=== PATIENT | female | born 1950 | race Caucasian/White ===

== ENCOUNTER 2020-11-18 08:16 | Inpatient (IN) | payer MEDICARE ==
[2020-11-18] MEDS ORDERED: MORPHINE SULFATE 4 MG/ML SYRINGE IV STA (08:31)
[2020-11-18] MEDS ORDERED: ONDANSETRON 4 MG/2 ML VIAL IVP STA (08:31)
[2020-11-18] MEDS ORDERED: PANTOPRAZOLE 40 MG/10 ML VIAL IVP STA (08:31)
--- NOTE | 2020-11-18 09:21 | ED ---
General Adult HPI - General Chief complaint: Abdominal Pain Stated complaint: Abd Pain Time Seen by Provider: 11/18/20 08:17 Source: patient, RN notes reviewed, old records reviewed Mode of arrival: ambulatory Limitations: no limitations - History of Present Illness Initial comments: Patient is a pleasant 70-year-old female presenting to the emergency Department with abdominal discomfort. Symptoms have been going on for weeks. Patient was recently at [facility] and had paracentesis done. Patient received results yesterday concerning for adenocarcinoma. Patient is having some continued discomfort that is progressively worsening. Patient did have computed tomography scan done. Charts were reviewed. Patient also had recent problems with A. fib and had pacemaker placed. - Related Data Home Medications Medication Instructions Recorded Confirmed traZODone HCL [TraZODone HCl] 50 - 150 mg PO TID PRN 10/11/20 11/18/20 Atorvastatin [Lipitor] 40 mg PO HS 11/18/20 11/18/20 Escitalopram [Lexapro] 10 mg PO DAILY PRN 11/18/20 11/18/20 Omeprazole 40 mg PO DAILY 11/18/20 11/18/20 Rivaroxaban [Xarelto] 15 mg PO W/SUPPER 11/18/20 11/18/20 Simethicone 80 mg PO Q4H PRN 11/18/20 11/18/20 Sotalol [Betapace] 180 mg PO BID 11/18/20 11/18/20 Sucralfate [Carafate] 1 gm PO Q8H 11/18/20 11/18/20 tiZANidine HCL [Zanaflex] 2 mg PO TID PRN 11/18/20 11/18/20 Allergies Allergy/AdvReac Type Severity Reaction Status Date / Time isosorbide [From Ismo] Allergy Severe Anaphylaxis Verified 11/18/20 09:40 hydralazine Allergy Rash/Hives Verified 11/18/20 09:40 Review of Systems ROS Statement: Those systems with pertinent positive or pertinent negative responses have been documented in the HPI. ROS Other: All systems not noted in ROS Statement are negative. Constitutional: Denies: fever Eyes: Denies: eye pain ENT: Denies: ear pain Respiratory: Reports: as per HPI, dyspnea. Denies: cough Cardiovascular: Denies: chest pain Endocrine: Reports: fatigue Gastrointestinal: Reports: abdominal pain, nausea. Denies: vomiting Genitourinary: Denies: dysuria Musculoskeletal: Denies: back pain Skin: Denies: rash Neurological: Reports: weakness (Generalized weakness limiting ability to ambulate), abnormal gait Past Medical History Past Medical History: Atrial Fibrillation, Cancer, Hyperlipidemia, Hypertension Additional Past Medical History / Comment(s): anenia History of Any Multi-Drug Resistant Organisms: None Reported Past Surgical History: Appendectomy, Hernia Repair, Pacemaker, Tonsillectomy Additional Past Surgical History / Comment(s): Paracentis 11/28, gastic bypass, loop recorder placement Past Psychological History: Depression Smoking Status: Former smoker Past Alcohol Use History: Occasional General Exam Limitations: no limitations General appearance: alert, in no apparent distress Head exam: Present: atraumatic Eye exam: Present: normal appearance ENT exam: Present: mucous membranes dry Neck exam: Present: normal inspection Respiratory exam: Present: normal lung sounds bilaterally Cardiovascular Exam: Present: regular rate, normal rhythm GI/Abdominal exam: Present: soft, distended (Mild distention), tenderness (Mild to moderate lower abdomen), diminished bowel sounds. Absent: guarding, rebound, rigid, pulsatile mass Extremities exam: Present: pedal edema (+1 bilateral) Neurological exam: Present: alert Psychiatric exam: Present: normal affect, normal mood Skin exam: Present: normal color Course Vital Signs 11/18/20 11/18/20 08:20 10:00 Temperature 98.2 F Pulse Rate 68 70 Respiratory 18 18 Rate Blood Pressure 112/60 142/89 O2 Sat by Pulse 98 98 Oximetry EKG Findings - EKG Comments: EKG Findings:: Paced rhythm with rate of 70. SC 164. QRS 82. QT 460. QTC 496. Normal axis. T-wave inversion leads V2 through V5. Normal QRS. Medical Decision Making - Medical Decision Making Patient reevaluated. Patient updated on results and plan. Case was discussed with Dr. Appiah, who will admit covering for Dr. Daniel. Case also discussed wit Dr. rouse, who will consult. - Lab Data Result diagrams: 11/18/20 09:17 11/18/20 09:17 Lab Results 11/18/20 11/18/20 11/18/20 Range/Units 09:17 09:17 09:17 WBC 11.4 H (3.8-10.6) k/uL RBC 4.01 (3.80-5.40) m/uL Hgb 11.1 L (11.4-16.0) gm/dL Hct 35.3 (34.0-46.0) % MCV 88.0 (80.0-100.0) fL MCH 27.7 (25.0-35.0) pg MCHC 31.4 (31.0-37.0) g/dL RDW 20.0 H (11.5-15.5) % Plt Count 434 (150-450) k/uL MPV 8.9 Neutrophils % 86 % Lymphocytes % 6 % Monocytes % 7 % Eosinophils % 0 % Basophils % 0 % Neutrophils # 9.8 H (1.3-7.7) k/uL Lymphocytes # 0.6 L (1.0-4.8) k/uL Monocytes # 0.8 (0-1.0) k/uL Eosinophils # 0.1 (0-0.7) k/uL Basophils # 0.0 (0-0.2) k/uL Hypochromasia Marked Poikilocytosis Slight Anisocytosis Moderate PT 11.0 (9.0-12.0) sec INR 1.0 (<1.2) APTT 23.2 (22.0-30.0) sec Sodium 125 L (137-145) mmol/L Potassium 5.0 (3.5-5.1) mmol/L Chloride 99 (98-107) mmol/L Carbon Dioxide 17 L (22-30) mmol/L Anion Gap 9 mmol/L BUN 12 (7-17) mg/dL Creatinine 1.18 H (0.52-1.04) mg/dL Est GFR (CKD-EPI)AfAm 55 (>60 ml/min/1.73 sqM) Est GFR (CKD-EPI)NonAf 48 (>60 ml/min/1.73 sqM) Glucose 74 (74-99) mg/dL Calcium 8.2 L (8.4-10.2) mg/dL Total Bilirubin 0.4 (0.2-1.3) mg/dL AST 30 (14-36) U/L ALT 6 (4-34) U/L Alkaline Phosphatase 72 (38-126) U/L Total Protein 4.5 L (6.3-8.2) g/dL Albumin 2.3 L (3.5-5.0) g/dL Amylase <30 L (30-110) U/L Lipase 24 (23-300) U/L - Radiology Data Radiology results: image reviewed (Chest x-ray shows hyperinflation. Left effusion with basilar infiltrate. Cannot exclude mild central venous congestion. KUB shows nonspecific abdomen.) Disposition Clinical Impression: Hyponatremia, Ascites, Adenocarcinoma Disposition: ADMITTED IP TO THIS HOSP Is patient prescribed a controlled substance at d/c from ED?: No Referrals: Jami Daniel MD [Primary Care Provider] - 1-2 days Decision Time: 10:37
[2020-11-18 09:54] LABS: ALT 6 U/L (4-34); African American GFR (CKD) 55 (>60 ml/min/1.73 sqM); Albumin 2.3 g/dL (3.5-5.0); Amylase <30 U/L (30-110); Anion Gap 9 mmol/L; Blood Urea Nitrogen 12 mg/dL (7-17); Calcium 8.2 mg/dL (8.4-10.2); Carbon Dioxide 17 mmol/L (22-30); Chloride 99 mmol/L (98-107); Glucose 74 mg/dL (74-99); Lipase 24 U/L (23-300); Non-African American GFR(CKD) 48 (>60 ml/min/1.73 sqM); Sodium 125 mmol/L (137-145); Total Bilirubin 0.4 mg/dL (0.2-1.3); Total Protein 4.5 g/dL (6.3-8.2)
[2020-11-18 09:55] LABS: AST 30 U/L (14-36); Alkaline Phosphatase 72 U/L (38-126)
[2020-11-18 10:04] LABS: Anisocytosis Moderate; Basophils % (A) 0 %; Eosinophils # (A) 0.1 k/uL (0-0.7); Eosinophils % (A) 0 %; HCT 35.3 % (34.0-46.0); HGB 11.1 gm/dL (11.4-16.0); Hypochromasia Marked; Lymphocytes # (A) 0.6 k/uL (1.0-4.8); Lymphocytes % (A) 6 %; MCH 27.7 pg (25.0-35.0); MCHC 31.4 g/dL (31.0-37.0); Mean Platelet Volume 8.9; Monocytes # (A) 0.8 k/uL (0-1.0); Monocytes % (A) 7 %; Neutrophils # (A) 9.8 k/uL (1.3-7.7); Neutrophils % (A) 86 %; Platelet Count 434 k/uL (150-450); Poikilocytosis Slight; RBC 4.01 m/uL (3.80-5.40); WBC 11.4 k/uL (3.8-10.6)
[2020-11-18 10:11] LABS: Partial Thromboplastin Time 23.2 sec (22.0-30.0)
--- NOTE | 2020-11-18 10:32 | XR ---
EXAMINATION TYPE: XR chest 2V DATE OF EXAM: 11/18/2020 COMPARISON: NONE TECHNIQUE: PA and lateral views submitted. HISTORY: Shortness of breath FINDINGS: Heart is enlarged and there is hyperinflation with bilateral consolidation and small effusion. No pne umothorax. Biapical pleural thickening. Cardiac device seen and there is atherosclerotic change of th e aorta. Heart size normal. IMPRESSION: 1. COPD with basilar infiltrate and small effusion greater on the left. Mild central venous congestio n not excluded.
--- NOTE | 2020-11-18 10:33 | XR ---
EXAMINATION TYPE: XR KUB DATE OF EXAM: 11/18/2020 COMPARISON: NONE HISTORY: Pain TECHNIQUE: One view abdominal series FINDINGS: The osseous structures are intact. The bowel gas pattern is nonspecific. Postsurgical changes noted and there is arthropathy of the hips. Cardiac leads are seen and there is basilar infiltrate and smal l effusion greater on the left. Hypertrophic and degenerative change of the spine. Suggestion of poss ible previous hernia repair surgery. Overall bowel gas pattern nonspecific. IMPRESSION: 1. Nonspecific abdomen. 2. Bibasilar infiltrate and small effusion greater on the left.
[2020-11-18] MEDS ORDERED: NALOXONE 0.4 MG/ML 1 ML VIAL IV PRN (10:57)
[2020-11-18] MEDS ORDERED: SODIUM CHLORIDE 0.9% 1,000 ML IV SCH (11:00)
[2020-11-18 11:12] LABS: Amorphous Sediment,Urine Occasional /hpf; Appearance,Urine Turbid (Clear); Bacteria,Urine Occasional /hpf; Bilirubin,Urine 1+ (Negative); Blood,Urine Large (Negative); Color,Urine Yellow; Glucose,Urine (UA) Negative (Negative); Hyaline Casts,Urine 22 /lpf (0-2); Ketones,Urine Trace (Negative); Leukocyte Esterase,Urine Small (Negative); Mucus,Urine Few /hpf; Nitrite,Urine Negative (Negative); PH, Urine 5.5 (5.0-8.0); Protein,Urine 1+ (Negative); RBC,Urine 8 /hpf (0-5); Specific Gravity,Urine 1.025 (1.001-1.035); Squamous Epithelial Cell,Urine 26 /hpf (0-4); WBC,Urine 7 /hpf (0-5)
[2020-11-18] MEDS ORDERED: METOCLOPRAMIDE 5 MG/ML 2 ML VIAL IVP STA (12:08)
[2020-11-18] MEDS: MORPHINE SULFATE 4 MG/ML SYRINGE IV PRN ×2 (12:15→17:37)
[2020-11-18] MEDS ORDERED: SIMETHICONE 80 MG CHEWABLE PO PRN (12:51)
[2020-11-18] MEDS ORDERED: ESCITALOPRAM 10 MG TAB PO PRN (12:51)
--- NOTE | 2020-11-18 14:25 | US ---
EXAMINATION TYPE: US abdomen limited DATE OF EXAM: 11/18/2020 COMPARISON: NONE CLINICAL HISTORY: ascites. All four quadrants scanned. There is small amounts of ascites noted in all four quadrants. IMPRESSION: Small amount of ascites
--- NOTE | 2020-11-18 15:47 | P.CONS ---
History of Present Illness - Reason for Consult Consult date: 11/18/20 Ascites Requesting physician: Timothy Appiah - Chief Complaint Abdominal pain, weakness - History of Present Illness This is a pleasant 70-year-old white female who presented to the emergency department today with complaints of waking up this morning with abdominal pain, weakness, and fluid filling up in her abdomen again. She has a past medical history including atrial fibrillation for which she underwent pacemaker placement in October 2020, hyperlipidemia, hypertension, iron deficiency anemia who follows with Dr. Cr, and a recent diagnosis of adenocarcinoma. brenda cha.She also has a history of Jonathan-en-Y surgery. She states she was at [facility] for treatment of abdominal pain and abdominal distention, she underwent a CT of the abdomen and pelvis that showed small pleural effusion bilaterally with mild bibasilar lung atelectasis. Large amount of ascites. She underwent a paracentesis on 11/14/2020 of 3.8 L of fluid removed, and cytology came back as adenocarcinoma. She denies any previous history of liver disease, history of alcoholism, or family history of liver disease. She is seen Dr. Lama in the past for EGD and colonoscopies. she states her last EGD was approximately 2 years ago unsure of findings, no report available at this time. Colonoscopy was completed through 4 days ago when she was in the hospital, patient states they said it was normal.today's labs include WBC 11.4, hemoglobin 11.1, hematocrit 35.3, platelets 434,000, INR 1.0,sodium 125, potassium 5, BP 112, creatinine 1.18, total bilirubin 0.4, alkaline phosphatase 72, AST 30, ALT 6, amylase 2.3, lipase less than 30. Afebrile, denies any shortness of breath or chest pain, denies any nausea or vomiting. Review of Systems REVIEW OF SYSTEMS: CARDIOPULMONARY: No chest pain or shortness of breath. Gastrointestinal: Abdominal pain and distention. No nausea or vomiting. No hematemesis, coffee-ground emesis. No rectal bleeding, or melena. GENITOURINARY: No dysuria or hematuria. MUSCULOSKELETAL: Reports normal range of motion., Joint pain. SKIN: No rashes. No jaundice. ENDOCRINE: No chills, fevers. No excessive weight gain or loss. No polydipsia or polyuria. PSYCHIATRIC: Unremarkable. NEUROLOGY: No change in mental status. Denies dizziness, headache. ENT: Vision unremarkable. CONSTITUTIONAL: No recent weight loss. No fever, chills, night sweats. Weakness. Past Medical History Past Medical History: Atrial Fibrillation, Cancer, Hyperlipidemia, Hypertension Additional Past Medical History / Comment(s): anenia History of Any Multi-Drug Resistant Organisms: None Reported Past Surgical History: Appendectomy, Hernia Repair, Pacemaker, Tonsillectomy Additional Past Surgical History / Comment(s): Paracentis 11/28, gastic bypass, loop recorder placement Past Psychological History: Depression Smoking Status: Former smoker Past Alcohol Use History: Occasional Medications and Allergies Home Medications Medication Instructions Recorded Confirmed Type traZODone HCL [TraZODone HCl] 50 - 150 mg PO TID PRN 10/11/20 11/18/20 History Atorvastatin [Lipitor] 40 mg PO HS 11/18/20 11/18/20 History Escitalopram [Lexapro] 10 mg PO DAILY PRN 11/18/20 11/18/20 History Omeprazole 40 mg PO DAILY 11/18/20 11/18/20 History Rivaroxaban [Xarelto] 15 mg PO W/SUPPER 11/18/20 11/18/20 History Simethicone 80 mg PO Q4H PRN 11/18/20 11/18/20 History Sotalol [Betapace] 180 mg PO BID 11/18/20 11/18/20 History Sucralfate [Carafate] 1 gm PO Q8H 11/18/20 11/18/20 History tiZANidine HCL [Zanaflex] 2 mg PO TID PRN 11/18/20 11/18/20 History Allergies Allergy/AdvReac Type Severity Reaction Status Date / Time isosorbide [From Ismo] Allergy Severe Anaphylaxis Verified 11/18/20 09:40 hydralazine Allergy Rash/Hives Verified 11/18/20 09:40 Physical Exam Vitals: Vital Signs Temp Pulse Resp BP Pulse Ox 11/18/20 11:14 70 18 105/63 96 11/18/20 10:00 70 18 142/89 98 11/18/20 08:20 98.2 F 68 18 112/60 98 Intake and Output 11/17/20 11/18/20 11/18/20 22:59 06:59 14:59 Other: Weight 90.718 kg General appearance: The patient is alert, oriented, appears in no acute distress. HET: Head is normocephalic and atraumatic. conjunctiva pink. Sclera anicteric. Neck: Supple without lymphadenopathy. Trachea midline. Heart: S1 S2. Regular rate and rhythm. Lungs: Clear to auscultation. Abdomen: Soft, tender, mild distention. normal bowel sounds. No guarding or rigidity. Skin: No rashes. No jaundice. Extremities: Normal skin color and turgor. no pedal edema. Neurological: No focal deficits. Alert and oriented x3. Results CBC & Chem 7: 11/18/20 09:17 11/18/20 09:17 Labs: Abnormal Lab Results - Last 24 Hours (Table) 11/18/20 11/18/20 11/18/20 Range/Units 09:17 09:17 09:17 WBC 11.4 H (3.8-10.6) k/uL Hgb 11.1 L (11.4-16.0) gm/dL RDW 20.0 H (11.5-15.5) % Neutrophils # 9.8 H (1.3-7.7) k/uL Lymphocytes # 0.6 L (1.0-4.8) k/uL Sodium 125 L (137-145) mmol/L Carbon Dioxide 17 L (22-30) mmol/L Creatinine 1.18 H (0.52-1.04) mg/dL Calcium 8.2 L (8.4-10.2) mg/dL Total Protein 4.5 L (6.3-8.2) g/dL Albumin 2.3 L (3.5-5.0) g/dL Amylase <30 L (30-110) U/L Urine Appearance Turbid H (Clear) Urine Protein 1+ H (Negative) Urine Ketones Trace H (Negative) Urine Blood Large H (Negative) Urine Bilirubin 1+ H (Negative) Ur Leukocyte Esterase Small H (Negative) Urine RBC 8 H (0-5) /hpf Urine WBC 7 H (0-5) /hpf Ur Squamous Epith Cells 26 H (0-4) /hpf Amorphous Sediment Occasional H (None) /hpf Urine Bacteria Occasional H (None) /hpf Hyaline Casts 22 H (0-2) /lpf Urine Mucus Few H (None) /hpf Comments: CT abdomen and pelvis from outside facility ([facility], 11/14/20) small pleural effusion bilaterally with mild bibasilar lung atelectasis. Large amount of ascites. Assessment and Plan (1) Ascites Narrative/Plan: 62-year-old female who presented to the emergency department today with complaints of abdominal pain and abdominal distention with increased weakness who was recently diagnosed with adenocarcinoma about 2 days ago and discharged from [facility] yesterday. She had a new diagnosis of ascites and underwent a paracentesis with fluid cytology showing adenocarcinoma. She also had 3.8 L of fluid removed. 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 She had been noticing increased abdominal distention over the past 1-2 weeks. She has no previous history of liver disease, no previous alcohol abuse or family history of liver disease. LFTs show total bilirubin 0.4, alkaline phosphatase 72, AST 60, ALT 6, amylase 2.3, lipase less than 30. She also recently underwent a colonoscopy at [place] 3-4 days ago, which she states was normal. She had a CT of the abdomen and pelvis at [facility] showing a small pleural effusion bilaterally with mild bibasilar lung atelectasis. Large amount of ascites. At this time patient showing adenocarcinoma with unknown origin. Oncology is on consult.. Current Visit: Yes Status: Acute Code(s): R18.8 - OTHER ASCITES SNOMED Code(s): 558144303 (2) Adenocarcinoma Current Visit: Yes Status: Acute Code(s): C80.1 - MALIGNANT (PRIMARY) NEOPLASM, UNSPECIFIED SNOMED Code(s): 517314095 (3) Hyponatremia Current Visit: Yes Status: Acute Code(s): E87.1 - HYPO-OSMOLALITY AND HYPONATREMIA SNOMED Code(s): 21148188 Plan: 1. Continue symptomatic and supportive care 2. Low sodium diet 3. Diuretics per medical management, consider nephrology consult for hyponatremia and further diuretic management 4. Paracentesis with fluid studies ordered 5. Repeat CBC, CMP 6. Will add Rocephin 1mg for SBP prophylaxis secondary to abdominal pain, recent paracentesis, and mild leukocytosis 7. Agree with oncology consult, appreciate their recommendations Thank you for allowing us to participate in the care of the patient, the GI service will sign off, gastroenterology will not be available at the hospital this weekend and if further evaluation by gastroenterology is required the patient will need transfer as per the primary team's discretion. Dr. Avila I agree with the dictator's note, documented as a scribe by Aide Amaro.
--- NOTE | 2020-11-18 16:06 | P.CONS ---
History of Present Illness - Reason for Consult Consult date: 11/18/20 Adenocarcinoma Requesting physician: Ismael Rocha - History of Present Illness Mrs. Johns is well known to primary oncologist Dr. Brown for monitoring and treatment of chronic Iron Deficiency Anemia. Originally seen prior to 2011 She has a known history of ETOH Abuse, in which she has been through [facility] and group support with success. Known history of Gastric Bypass and because of this she has not been able to undergo adequate scopes. She did have an EGD/Colonoscopy by Dr Mendes in 2018, degree of assessment unclear, was recommended for repeated GI bleeding requiring transfusional and parental Iron Infusions. 01/29/18: Rita was Re-evaluated for Re-developing anemia > she suffered a R femur traumatic fracture, was admitted and treated at [facility] and was seen by Dr Leon (Hematology) while there and given iron infusions daily X 3 days, but not responded well to infusion. 03/11/19: C/O fatigue, had recent labs revealing HGB 9.2 with iron saturation of 9% 10/05/2020: Feels very tired, having exertional dyspnea. Iron studies again revealed Iron deficiency with saturation at 5%, Ferritin 28, and Iron level at 17. She received Faraheme weekly x3, last was 10/24/20. We have now been consulted regarding new adenocarcinoma findings. I have requested records from [place]: Recent Hospitalization at [facility]: 11/12/20: Peritoneal Fluid Cytology positive for Malignancy 11/12/2020: CT Chest/Abdomen/Pelvis with IV Contrast: No evidence of thoracic adenopathy, small pleural effusions bilateral mid bibasilar lung atelectasis. Large abdominal ascites. Review of Systems All systems: negative Constitutional: Reports as per HPI Past Medical History Past Medical History: Atrial Fibrillation, Cancer, Hyperlipidemia, Hypertension Additional Past Medical History / Comment(s): anenia History of Any Multi-Drug Resistant Organisms: None Reported Past Surgical History: Appendectomy, Hernia Repair, Pacemaker, Tonsillectomy Additional Past Surgical History / Comment(s): Paracentis 11/28, gastic bypass, loop recorder placement Past Psychological History: Depression Smoking Status: Former smoker Past Alcohol Use History: Occasional - Past Family History Father Family Medical History: CVA/TIA, Hypertension Additional Family Medical History / Comment(s): Father from stroke Mother Additional Family Medical History / Comment(s): Mother from alzheimer's disease Medications and Allergies Home Medications Medication Instructions Recorded Confirmed Type traZODone HCL [TraZODone HCl] 50 - 150 mg PO TID PRN 10/11/20 11/18/20 History Atorvastatin [Lipitor] 40 mg PO HS 11/18/20 11/18/20 History Escitalopram [Lexapro] 10 mg PO DAILY PRN 11/18/20 11/18/20 History Omeprazole 40 mg PO DAILY 11/18/20 11/18/20 History Rivaroxaban [Xarelto] 15 mg PO W/SUPPER 11/18/20 11/18/20 History Simethicone 80 mg PO Q4H PRN 11/18/20 11/18/20 History Sotalol [Betapace] 180 mg PO BID 11/18/20 11/18/20 History Sucralfate [Carafate] 1 gm PO Q8H 11/18/20 11/18/20 History tiZANidine HCL [Zanaflex] 2 mg PO TID PRN 11/18/20 11/18/20 History Allergies Allergy/AdvReac Type Severity Reaction Status Date / Time isosorbide [From Iswi] Allergy Severe Anaphylaxis Verified 11/18/20 09:40 hydralazine Allergy Rash/Hives Verified 11/18/20 09:40 Physical Exam Vitals: Vital Signs Temp Pulse Resp BP Pulse Ox 11/18/20 11:14 70 18 105/63 96 11/18/20 10:00 70 18 142/89 98 11/18/20 08:20 98.2 F 68 18 112/60 98 Intake and Output 11/17/20 11/18/20 11/18/20 22:59 06:59 14:59 Other: Weight 90.718 kg breast exam without any palpable masses, axilla no adenopathy. - Constitutional Tearful General appearance: cooperative, no acute distress - EENT Eyes: EOMI, PERRLA ENT: NA/AT - Neck Neck: normal ROM - Respiratory Respiratory: bilateral: diminished (bibasilar) - Cardiovascular Rhythm: irregularly irregular - Gastrointestinal Abdominal Ascites General gastrointestinal: distended - Integumentary Integumentary: pale - Neurologic non focal - Musculoskeletal Musculoskeletal: generalized weakness - Psychiatric Psychiatric: A&O x's 3, appropriate affect Results CBC & Chem 7: 11/18/20 09:17 11/18/20 09:17 Labs: Abnormal Lab Results - Last 24 Hours (Table) 11/18/20 11/18/20 11/18/20 Range/Units 09:17 09:17 09:17 WBC 11.4 H (3.8-10.6) k/uL Hgb 11.1 L (11.4-16.0) gm/dL RDW 20.0 H (11.5-15.5) % Neutrophils # 9.8 H (1.3-7.7) k/uL Lymphocytes # 0.6 L (1.0-4.8) k/uL Sodium 125 L (137-145) mmol/L Carbon Dioxide 17 L (22-30) mmol/L Creatinine 1.18 H (0.52-1.04) mg/dL Calcium 8.2 L (8.4-10.2) mg/dL Total Protein 4.5 L (6.3-8.2) g/dL Albumin 2.3 L (3.5-5.0) g/dL Amylase <30 L (30-110) U/L Urine Appearance Turbid H (Clear) Urine Protein 1+ H (Negative) Urine Ketones Trace H (Negative) Urine Blood Large H (Negative) Urine Bilirubin 1+ H (Negative) Ur Leukocyte Esterase Small H (Negative) Urine RBC 8 H (0-5) /hpf Urine WBC 7 H (0-5) /hpf Ur Squamous Epith Cells 26 H (0-4) /hpf Amorphous Sediment Occasional H (None) /hpf Urine Bacteria Occasional H (None) /hpf Hyaline Casts 22 H (0-2) /lpf Urine Mucus Few H (None) /hpf CT scan - abdomen: report reviewed CT scan - chest: report reviewed CT scan - pelvis: report reviewed Assessment and Plan Plan: Assessment and Recommendations: I have fully reviewed all records from [facility] recent hospitalizations and her pertinent history. Presentation for Chest Pain: - Unknown etiology, COVID Negative, Mild effusions bilateral and bibasilar atelectasis New Onset Abdominal Ascites: - Status POst Paracentesis on 11/11/20 at [facility]: - 300cc removed again on 08/15/20 - Cytology Positive for Adenocarcinoma, Origin suspicious for upper GI or COLLEGE OR UNIVERSITY DEPARTMENT HEAD/Breast Origin, however remains unknown at this time - Hx: iron deficiency anemia, Bariatric bypass surgery and inability to adequately scope over the years with chronic Iron deficiency. - Full breast exam and bilateral axillary without palpable or clinical findings to suggest malignancy, CT did not reveal abnormality. - AFP <2.7 (WNL), CA19-9 15 (WNL), CEA 6.3 (mild elevated) Chronic Iron Deficiency thought to be related to AVM/GI Blood loss and Absorbption secondary to past history - EGD 10/22/20: No evidence of bleeding or suspicion for malignancy. Report does mention erythema - Colonoscopy on 11/16/20: no evidence of bleeding, Left sided diverticulosis, internal hemorrhoids. No mass or definitive primary malignancy - She does have history of erosive esophagitis and ETOH Component B12 Deficiency: - Jonathan and Y history and malabsorption - Recheck B12 and FOlate and supplement prn Sick Sinus Syndrome/Paroxysmal Atrial FIbrillation: - Status Post Pacemaker Placement Recent: 11/04/20 - Continues on Xarelto - Cardiology to follow is recommended - Echocardiogram on 11/12/20: 55-60% EF Right Ventricle a 4.6x5.0 cm echodensity with a fluid filled cyst-like structure noted in the subcostal view (Dedicated imaging advised), not seen on 12/07/20 study Hyponatremia: - Secondary to third space - Nephrology to consult Depression/Anxiety: -Celexa Generalized Weakness: - PT/OT Thank you for allowing us to participate in the care of your patient will follow along with you Plan: - Transvaginal Ultrasound - CT Brain (unable to do MRI due to recent pacemaker) - Likely need and continue with Therapeutic Paracentesis - We can order liquid biopsy as outpatient to assist in molecular markers and potential primary cancer site. - Will follow-up with Dr. Brown after discharge. - Will check breast and COLLEGE OR UNIVERSITY DEPARTMENT HEAD markers - I have also requested paracentesis positive cytology for adenocarcinoma on 11/11/20 be sent for ER/NH/HER2 - Will need repeat Paracentesis for diagnostic. Physician Attest: I have completed the full history and physical and agree with above dictation. Dictated as a scribe.
[2020-11-18] MEDS ORDERED: RIVAROXABAN 15 MG TAB PO SCH (17:30)
[2020-11-18] MEDS: PANTOPRAZOLE 40 MG TABLET PO SCH (17:37)
--- NOTE | 2020-11-18 17:47 | P.HPIM ---
History of Present Illness H&P Date: 11/18/20 Chief Complaint: Weak and tired History of presenting complaint: This is a very pleasant 70-year-old patient who follows with Dr. Kenia Daniel. Chronic stable medical conditions include osteoarthritis, hypertension, hyperlipidemia, depression, insomnia. Patient was 2 days ago discharged from [facility]. Patient had a paracentesis carried out 3800 mL was removed. Cytology came back positive for adenocarcinoma. Follow-up was in progress. Patient has followed up with Dr. Dominguez in the past for iron deficiency and received IV iron. At home patient had been getting progressively worse. Barely able to walk. Does have a walker. . Very poor appetite. Constipation. Blood work from other hospitals reviewed. Also swelling in the lower extremity. No fever no chills. No cough. Abdomen some bit more distended. No pain Review of systems: GEN.: Tired, poor appetite weak EYES: None HEENT: None NECK: None RESPIRATORY: None CARDIOVASCULAR: [Some lower extremity edema GASTROINTESTINAL: [Constipation, abdominal distention GENITOURINARY: None MUSCULOSKELETAL: Joint pains, muscle weakness LYMPHATICS: None HEMATOLOGICAL: None PSYCHIATRY: None NEUROLOGICAL: Walker Past medical history to include: Atrial fibrillation, hypertension, hyperlipidemia, iron deficiency anemia, gastric bypass surgery, just diagnosed with adenocarcinoma in the peritoneal fluid primary unknown, osteoarthritis Social history: Patient quit smoking in 1994. Sometimes has wine. . Walker. Physical examination: VITAL SIGNS: 98.2, 68, 18, 112/60, 98% on room air GENERAL: BMI 32.8, laying in bed, tired appearing. EYES: Pupils equal. Conjunctiva palel. HEENT: External appearance of nose and ears normal, oral cavity grossly normal. NECK: JVD unable to assess; masses not palpable. HEART: Irregular heart sounds; edema present. LUNGS: Respiratory rate increased decreased breath sounds. ABDOMEN: Soft, slight distention, nontender, liver spleen not palpable, no masses palpable. PSYCH: [Alert and oriented x3; mood and affect a bit low MUSCULAR skeletal: Evidence of OA, NEUROLOGICAL: Cranial nerves grossly intact; no facial asymmetry, generally decreased power and sensation grossly intact. LYMPHATICS: No lymph nodes palpable in the axilla and neck INVESTIGATIONS, reviewed in the clinical context: WBC 11.4 hemoglobin 11.1 platelets 434 sodium 125 potassium 5 BUN 12 creatinine 1.18 ProBNP 1180 albumin 2.3 UA positive for blood, leukoesterase, WBC,'s, squamous epithelial cells Coronavirus [PCR]: Not detected EKG tracing personally reviewed by me-atrial paced rhythm T-wave abnormality Chest x-ray film personally reviewed by [id number] pleural effusion Abdominal ultrasound: Small amount of ascites Investigations from the outside hospital: Hemoglobin 10.8 platelets 332 hepatitis screen for A, B, and C negative creatinine 0.79 CEA: 63 mL and 19-9:15 IgM and IgG: Low Antinuclear antibody, echocardiogram antibody, smooth muscle antibody all negative Assessment and plan: -Acute on chronic medical debility from adenocarcinoma/malignancy office the primary is not known, progressive. No diet patient is a poor appetite and losing weight -Acute on chronic gait dysfunction Finding difficult to walk, was using a walker before that -Adenocarcinoma, diagnosed from peritoneal fluid last week, primary unknown Consultation to oncology -Secondary ascites likely from peritoneal seeding from adenocarcinoma. Abdominal ultrasound no treatment ascites. Doubt if it'll benefit from paracentesis We will do fluid restriction and diuretics -Hyponatremia, hypervolemic Fluid restriction to 15 mL a. Low-salt diet. Diuretics. Follow BMP -Depression not otherwise specified Continue Lexapro -Persistent atrial fibrillation, with a pacemaker On sotalol and xarelto -GERD On omeprazole -Hyperlipidemia On Lipitor -Anemia normocytic of chronic disease including that of underlying malignancy Follow H&H -Chronic insomnia from multiple medical problems *Melatonin Care was discussed with the patient. GI was consulted. Oncology has been consulted. IV Rocephin was added by GI for possible SBP. Lovenox for DVT prophylaxis. PTOT. Past Medical History Past Medical History: Atrial Fibrillation, Cancer, Hyperlipidemia, Hypertension Additional Past Medical History / Comment(s): anenia History of Any Multi-Drug Resistant Organisms: None Reported Past Surgical History: Appendectomy, Hernia Repair, Pacemaker, Tonsillectomy Additional Past Surgical History / Comment(s): Paracentis 11/28, gastic bypass, loop recorder placement Past Anesthesia/Blood Transfusion Reactions: No Reported Reaction Type of Cardiac Device: Permanent Pacemaker Device Placement Date:: 11/04/2020 Past Psychological History: Depression Smoking Status: Former smoker Past Alcohol Use History: Occasional - Past Family History Father Family Medical History: CVA/TIA, Hypertension Additional Family Medical History / Comment(s): Father from stroke Mother Additional Family Medical History / Comment(s): Mother from alzheimer's disease Medications and Allergies Home Medications Medication Instructions Recorded Confirmed Type traZODone HCL [TraZODone HCl] 50 - 150 mg PO TID PRN 10/11/20 11/18/20 History Atorvastatin [Lipitor] 40 mg PO HS 11/18/20 11/18/20 History Escitalopram [Lexapro] 10 mg PO DAILY PRN 11/18/20 11/18/20 History Omeprazole 40 mg PO DAILY 11/18/20 11/18/20 History Rivaroxaban [Xarelto] 15 mg PO W/SUPPER 11/18/20 11/18/20 History Simethicone 80 mg PO Q4H PRN 11/18/20 11/18/20 History Sotalol [Betapace] 180 mg PO BID 11/18/20 11/18/20 History Sucralfate [Carafate] 1 gm PO Q8H 11/18/20 11/18/20 History tiZANidine HCL [Zanaflex] 2 mg PO TID PRN 11/18/20 11/18/20 History Allergies Allergy/AdvReac Type Severity Reaction Status Date / Time isosorbide [From [facility]] Allergy Severe Anaphylaxis Verified 11/18/20 09:40 hydralazine Allergy Rash/Hives Verified 11/18/20 09:40 Physical Exam Vitals: Vital Signs Temp Pulse Pulse Resp BP BP Pulse Ox 11/18/20 15:51 98.7 F 74 18 122/71 98 11/18/20 13:39 84 18 114/59 97 11/18/20 12:54 98.1 F 73 17 110/93 92 L 11/18/20 11:14 70 18 105/63 96 11/18/20 10:00 70 18 142/89 98 11/18/20 08:20 98.2 F 68 18 112/60 98 Intake and Output 11/18/20 11/18/20 11/18/20 06:59 14:59 22:59 Other: Weight 95 kg Results CBC & Chem 7: 11/18/20 09:17 11/18/20 09:17 Labs: Abnormal Lab Results - Last 24 Hours (Table) 11/18/20 11/18/20 11/18/20 Range/Units 09:17 09:17 09:17 WBC 11.4 H (3.8-10.6) k/uL Hgb 11.1 L (11.4-16.0) gm/dL RDW 20.0 H (11.5-15.5) % Neutrophils # 9.8 H (1.3-7.7) k/uL Lymphocytes # 0.6 L (1.0-4.8) k/uL Sodium 125 L (137-145) mmol/L Carbon Dioxide 17 L (22-30) mmol/L Creatinine 1.18 H (0.52-1.04) mg/dL Calcium 8.2 L (8.4-10.2) mg/dL Total Protein 4.5 L (6.3-8.2) g/dL Albumin 2.3 L (3.5-5.0) g/dL Amylase <30 L (30-110) U/L Urine Appearance Turbid H (Clear) Urine Protein 1+ H (Negative) Urine Ketones Trace H (Negative) Urine Blood Large H (Negative) Urine Bilirubin 1+ H (Negative) Ur Leukocyte Esterase Small H (Negative) Urine RBC 8 H (0-5) /hpf Urine WBC 7 H (0-5) /hpf Ur Squamous Epith Cells 26 H (0-4) /hpf Amorphous Sediment Occasional H (None) /hpf Urine Bacteria Occasional H (None) /hpf Hyaline Casts 22 H (0-2) /lpf Urine Mucus Few H (None) /hpf Thrombosis Risk Factor Assmnt - Choose All That Apply Any of the Below Risk Factors Present?: Yes Each Factor Represents 1 point: Abnormal pulmonary function (COPD), Obesity (BMI >25) Other Risk Factors: Yes Each Risk Factor Represents 2 Points: Age 61-74 years, Malignancy Thrombosis Risk Factor Assessment Total Risk Factor Score: 6 Thrombosis Risk Factor Assessment Level: High Risk
--- NOTE | 2020-11-18 18:19 | US ---
EXAMINATION TYPE: US transvaginal DATE OF EXAM: 11/18/2020 COMPARISON: NONE CLINICAL HISTORY: concern for malignancy. Ascites. Recently diagnosed with adenocarcinoma. TECHNIQUE: Transvaginal (TV). 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 Uterus: Anteverted Appears small in size. Heterogenous. Echogenic focus seen in fundal region = 0.6 cm 2. Endometrium: Fluid visualized within endometrial canal. 3. Right Ovary: Obscured by overlying bowel gas and ascites 4. Left Ovary: Obscured by overlying bowel gas and ascites 5. Bilateral Adnexa: ascites visualized 6. Posterior cul-de-sac: ascites visualized IMPRESSION: There appears to be fluid in the pelvis surrounding the uterine fundus relate to ascites. There is sm all amount of endometrial fluid. No endometrial mass. No adnexal mass.
--- NOTE | 2020-11-18 18:34 | ECHOF ---
Referral Reason:assess LV function MEASUREMENTS -------- HEIGHT: 170.2 cm WEIGHT: 90.7 kg BP: 105/63 RVIDd: 2.8 cm (< 3.3) IVSd: 1.1 cm (0.6 - 1.1) LVIDd: 3.8 cm (3.9 - 5.3) LVPWd: 1.0 cm (0.6 - 1.1) IVSs: 1.4 cm LVIDs: 3.0 cm LVPWs: 1.9 cm LA Diam: 3.4 cm (2.7 - 3.8) LAESV Index (A-L): 24.51 ml/m Ao Diam: 3.2 cm (2.0 - 3.7) AV Cusp: 2.2 cm (1.5 - 2.6) MV EXCURSION: 19.783 mm (> 18.000) MV EF SLOPE: 69 mm/s (70 - 150) EPSS: 1.8 cm MV E Curry: 0.50 m/s MV DecT: 233 ms MV A Curry: 0.67 m/s MV E/A Ratio: 0.74 RAP: 5.00 mmHg RVSP: 31.09 mmHg FINDINGS -------- Sinus rhythm. This was a technically adequate study. The left ventricular size is normal. There is borderline concentric left ventricular hypertrophy. Overall left ventricular systolic function is normal with, an EF between 60 - 65 %. The right ventricle is normal in size. Normal LA size by volume 22+/-6 ml/m2. The right atrium is normal in size. Interatrial and interventricular septum intact. The aortic valve is trileaflet, and appears structurally normal. No aortic stenosis or regurgitation. The mitral valve is normal. Mild tricuspid regurgitation present. Right ventricular systolic pressure is normal at < 35 mmHg. Cannot rule out vegetation. The pulmonic valve is normal. The aortic root size is normal. Normal inferior vena cava with normal inspiratory collapse consistent with estimated right atrial pre ssure of 5 mmHg. There is no pericardial effusion. CONCLUSIONS -------- 1. The left ventricular size is normal. 2. There is borderline concentric left ventricular hypertrophy. 3. Overall left ventricular systolic function is normal with, an EF between 60 - 65 %. 4. The aortic valve is trileaflet, and appears structurally normal. No aortic stenosis or regurgitati on. 5. Mild tricuspid regurgitation present. 6. Cannot rule out vegetation. 7. There is no pericardial effusion. PERSONAL FINANCIAL PLANNER: Nicole Bey RDCS
[2020-11-18] MEDS: SOTALOL 120 MG TAB PO SCH (20:17)
[2020-11-18] MEDS: ATORVASTATIN 40 MG TAB PO SCH (20:17)
[2020-11-19] MEDS: ONDANSETRON 4 MG/2 ML VIAL IVP PRN (04:57)
[2020-11-19 06:11] LABS: Anisocytosis Slight; HCT 32.8 % (34.0-46.0); HGB 9.7 gm/dL (11.4-16.0); Hypochromasia Marked; MCH 26.9 pg (25.0-35.0); MCHC 29.6 g/dL (31.0-37.0); Mean Platelet Volume 8.2; Platelet Count 384 k/uL (150-450); RDW 19.6 % (11.5-15.5); WBC 10.8 k/uL (3.8-10.6)
[2020-11-19 06:12] LABS: ALT <6 U/L (4-34); AST 20 U/L (14-36); African American GFR (CKD) 35 (>60 ml/min/1.73 sqM); Albumin 2.1 g/dL (3.5-5.0); Albumin/Globulin Ratio 1.1; Alkaline Phosphatase 72 U/L (38-126); Anion Gap 8 mmol/L; Blood Urea Nitrogen 16 mg/dL (7-17); Calcium 8.5 mg/dL (8.4-10.2); Carbon Dioxide 17 mmol/L (22-30); Chloride 99 mmol/L (98-107); Glucose 72 mg/dL (74-99); Lipase 30 U/L (23-300); Magnesium 1.8 mg/dL (1.6-2.3); Non-African American GFR(CKD) 31 (>60 ml/min/1.73 sqM); Potassium 5.1 mmol/L (3.5-5.1); Sodium 124 mmol/L (137-145); Total Bilirubin 0.1 mg/dL (0.2-1.3); Total Protein 4.1 g/dL (6.3-8.2)
[2020-11-19 06:38] LABS: Anisocytosis (M) Present; Band Neutrophils % 3 %; Lymphocytes # (M) 0.86 k/uL (1.0-4.8); Monocytes # (M) 0.43 k/uL (0-1.0); Neutrophils % (M) 85 %; Nucleated Red Blood Cells 0 /100 WBC (0-0); Poikilocytosis (M) Present; Total Cells Counted 100
[2020-11-19 06:39] LABS: Crenated RBC Present; RBC Fragments Present
[2020-11-19] MEDS: SOTALOL 120 MG TAB PO SCH ×2 (07:26→20:04)
[2020-11-19] MEDS: PANTOPRAZOLE 40 MG TABLET PO SCH ×2 (07:26→17:12)
[2020-11-19] MEDS: ACETAMINOPHEN TAB 500 MG TAB PO PRN (08:50)
[2020-11-19] MEDS ORDERED: PANTOPRAZOLE 40 MG/10 ML VIAL IV SCH (09:00)
[2020-11-19] MEDS ORDERED: PANTOPRAZOLE 40 MG TABLET PO SCH (09:00)
[2020-11-19 09:13] LABS: INR 1.05 (0.90-1.11); Prothrombin Time 11.4 sec (9.9-11.9)
[2020-11-19 09:40] LABS: Folate, Serum 2.4 ng/mL
--- NOTE | 2020-11-19 10:05 | P.PN ---
Subjective Progress Note Date: 11/19/20 Principal diagnosis: Adenocarcinoma, unknown primary Weakness Hyponatremia DARIA Anemia Pt's hemoglobin decreased, no signs of bleeding, and renal function worsening. Having abdominal pain. Tylenol not helping. Tearful and scared about her new diagnosis. Objective - Vital Signs Vital signs: Vital Signs Temp 97.5 F L 11/19/20 04:31 Pulse 69 11/19/20 04:31 Resp 14 11/19/20 04:31 BP 96/59 11/19/20 04:31 Pulse Ox 99 11/19/20 04:31 Intake & Output 11/18/20 11/19/20 11/19/20 18:59 06:59 18:59 Intake Total 50 770 Balance 50 770 Weight 95 kg Intake: Intake, IV Titration 50 50 Amount Sodium Chloride 0.9% 1, 50 50 000 ml @ 50 mls/hr IV . Q20H [facility] Rx#:[id number] Oral 720 - Exam Gen: No acute distress HEENT: Conjunctival pallor. Neck: Supple Lungs: No respiratory distress Heart: Normal rate Abdomen: Distended MSK: No obvious deformities Neuro: Alert and oriented 3 Psych: Appropriate affect. Tearful about new cancer finding. Skin: No jaundice - Labs CBC & Chem 7: 11/19/20 05:24 11/19/20 05:24 Labs: Abnormal Lab Results - Last 24 Hours (Table) 11/18/20 11/18/20 11/18/20 Range/Units 09:17 09:17 09:17 WBC 11.4 H (3.8-10.6) k/uL RBC (3.80-5.40) m/uL Hgb 11.1 L (11.4-16.0) gm/dL Hct (34.0-46.0) % MCHC (31.0-37.0) g/dL RDW 20.0 H (11.5-15.5) % Neutrophils # 9.8 H (1.3-7.7) k/uL Neutrophils # (Manual) (1.3-7.7) k/uL Lymphocytes # 0.6 L (1.0-4.8) k/uL Lymphocytes # (Manual) (1.0-4.8) k/uL Sodium 125 L (137-145) mmol/L Carbon Dioxide 17 L (22-30) mmol/L Creatinine 1.18 H (0.52-1.04) mg/dL Glucose (74-99) mg/dL Osmolality (280-301) mosm/kg Calcium 8.2 L (8.4-10.2) mg/dL Total Bilirubin (0.2-1.3) mg/dL Total Protein 4.5 L (6.3-8.2) g/dL Albumin 2.3 L (3.5-5.0) g/dL Amylase <30 L (30-110) U/L Urine Appearance Turbid H (Clear) Urine Protein 1+ H (Negative) Urine Ketones Trace H (Negative) Urine Blood Large H (Negative) Urine Bilirubin 1+ H (Negative) Ur Leukocyte Esterase Small H (Negative) Urine RBC 8 H (0-5) /hpf Urine WBC 7 H (0-5) /hpf Ur Squamous Epith Cells 26 H (0-4) /hpf Amorphous Sediment Occasional H (None) /hpf Urine Bacteria Occasional H (None) /hpf Hyaline Casts 22 H (0-2) /lpf Urine Mucus Few H (None) /hpf 11/19/20 11/19/20 Range/Units 05:24 05:24 WBC 10.8 H (3.8-10.6) k/uL RBC 3.60 L (3.80-5.40) m/uL Hgb 9.7 L (11.4-16.0) gm/dL Hct 32.8 L (34.0-46.0) % MCHC 29.6 L (31.0-37.0) g/dL RDW 19.6 H (11.5-15.5) % Neutrophils # (1.3-7.7) k/uL Neutrophils # (Manual) 9.50 H (1.3-7.7) k/uL Lymphocytes # (1.0-4.8) k/uL Lymphocytes # (Manual) 0.86 L (1.0-4.8) k/uL Sodium 124 L (137-145) mmol/L Carbon Dioxide 17 L (22-30) mmol/L Creatinine 1.70 H (0.52-1.04) mg/dL Glucose 72 L (74-99) mg/dL Osmolality 266 L (280-301) mosm/kg Calcium (8.4-10.2) mg/dL Total Bilirubin 0.1 L (0.2-1.3) mg/dL Total Protein 4.1 L (6.3-8.2) g/dL Albumin 2.1 L (3.5-5.0) g/dL Amylase (30-110) U/L Urine Appearance (Clear) Urine Protein (Negative) Urine Ketones (Negative) Urine Blood (Negative) Urine Bilirubin (Negative) Ur Leukocyte Esterase (Negative) Urine RBC (0-5) /hpf Urine WBC (0-5) /hpf Ur Squamous Epith Cells (0-4) /hpf Amorphous Sediment (None) /hpf Urine Bacteria (None) /hpf Hyaline Casts (0-2) /lpf Urine Mucus (None) /hpf Assessment and Plan Assessment: 1. Adenocarcinoma, unknown primary 2. Ascites, malignant 3. DARIA 4. Anemia 5. Hyponatremia 6. Iron and B12 deficiniency Plan: Ms. Johns is a very pleasant 70 yo female with history of bariatric surgery, here for weakness. 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 Work up there including CT CAP negative and breast/axillary LN exam on presentation was unremarkable. Transvaginal US negative. GI on board. She would benefit from EGD. - Transvaginal Ultrasound unremarkable. Unable to see ovaries bilaterally due to gas/bowel and ascites however no obvious masses appreciated. - CT Brain (unable to do MRI due to recent pacemaker) ordered, cannot use contrast due to DARIA. Will obtain without contrast for now although will be very limited. - Continue with Therapeutic Paracentesis as needed. - We can order liquid biopsy as outpatient to assist in molecular markers and potential primary cancer site. - Will follow-up with Dr. Brown after discharge. - Will check breast and MACHINE BUILDER markers - Requested paracentesis positive cytology for adenocarcinoma on 11/11/20 be sent for ER/[place]/HER2 - Please send fluid for cytology and diagnostic work up when paracentesis next completed. - Would benefit from EGD to assess for mass/primary tumor. - Add dilaudid for pain control, low dose.
[2020-11-19] MEDS: HYDROmorphone 0.5 MG/0.5 ML SYRINGE IVP PRN ×2 (10:19→21:38)
--- NOTE | 2020-11-19 10:45 | P.CRDCN ---
History of Present Illness Consult date: 11/19/20 History of present illness: This is a 70-year-old female patient with requested to see for further evaluation of abnormal echocardiogram. The patient does have a history of permanent pacemaker as well as history of hypertension and dyslipidemia and paroxysmal atrial fibrillation and depression. She follows with a corporate tax preparer out of the town at [facility]. Recently she underwent paracentesis and she was found to have adenocarcinoma cell and she is in process of getting more work up to assess the source of the cells. She was getting progressively weak and for that reason she was admitted to the hospital. No chest pain and no chest discomfort and no shortness of breath or dizziness or lightheadedness and no syncope. She did have abdominal distention area an echocardiogram was performed and revealed possible echodensity attached to the anterior mitral leaflet on the downstream size and seems to be concerning. The patient stated that she never been diagnosed with endocarditis in the past. No fever and no chills. I am going to schedule the patient to undergo transesophageal echocardiogram for more clarification. I doubt that the echodensity is a vegetation because is on the downstream side and not on the upstream side of the valve. Past Medical History Past Medical History: Atrial Fibrillation, Cancer, Hyperlipidemia, Hypertension Additional Past Medical History / Comment(s): anenia History of Any Multi-Drug Resistant Organisms: None Reported Past Surgical History: Appendectomy, Hernia Repair, Pacemaker, Tonsillectomy Additional Past Surgical History / Comment(s): Paracentis 11/28, gastic bypass, loop recorder placement Past Anesthesia/Blood Transfusion Reactions: No Reported Reaction Type of Cardiac Device: Permanent Pacemaker Device Placement Date:: 11/04/2020 Past Psychological History: Depression Smoking Status: Former smoker Past Alcohol Use History: Occasional - Past Family History Father Family Medical History: CVA/TIA, Hypertension Additional Family Medical History / Comment(s): Father from stroke Mother Additional Family Medical History / Comment(s): Mother from alzheimer's disease Medications and Allergies Home Medications Medication Instructions Recorded Confirmed Type traZODone HCL [TraZODone HCl] 50 - 150 mg PO TID PRN 10/11/20 11/18/20 History Atorvastatin [Lipitor] 40 mg PO HS 11/18/20 11/18/20 History Escitalopram [Lexapro] 10 mg PO DAILY PRN 11/18/20 11/18/20 History Omeprazole 40 mg PO DAILY 11/18/20 11/18/20 History Rivaroxaban [Xarelto] 15 mg PO W/SUPPER 11/18/20 11/18/20 History Simethicone 80 mg PO Q4H PRN 11/18/20 11/18/20 History Sotalol [Betapace] 180 mg PO BID 11/18/20 11/18/20 History Sucralfate [Carafate] 1 gm PO Q8H 11/18/20 11/18/20 History tiZANidine HCL [Zanaflex] 2 mg PO TID PRN 11/18/20 11/18/20 History Allergies Allergy/AdvReac Type Severity Reaction Status Date / Time isosorbide [From [facility]] Allergy Severe Anaphylaxis Verified 11/18/20 09:40 hydralazine Allergy Rash/Hives Verified 11/18/20 09:40 Physical Exam Vitals: Vital Signs Temp Pulse Pulse Resp BP BP Pulse Ox 11/19/20 04:31 97.5 F L 69 14 96/59 99 11/18/20 19:26 97.4 F L 78 16 94/69 96 11/18/20 15:51 98.7 F 74 18 122/71 98 11/18/20 13:39 84 18 114/59 97 11/18/20 12:54 98.1 F 73 17 110/93 92 L 11/18/20 11:14 70 18 105/63 96 Intake and Output 11/18/20 11/19/20 11/19/20 22:59 06:59 14:59 Intake Total 290 530 120 Balance 290 530 120 Intake: Intake, IV Titration 50 50 Amount Sodium Chloride 0.9% 1, 50 50 000 ml @ 50 mls/hr IV . Q20H [facility] Rx#:[id number] Oral 240 480 120 Other: Voiding Method External Catheter - Constitutional General appearance: no acute distress - Respiratory Respiratory: bilateral: diminished - Cardiovascular Rhythm: regular Heart sounds: normal: S1, S2 Abnormal Heart Sounds: systolic murmur Results 11/19/20 05:24 11/19/20 05:24 Cardiac Enzymes 11/19/20 Range/Units 05:24 AST 20 (14-36) U/L Coagulation 11/19/20 Range/Units 05:24 PT 11.4 (9.9-11.9) sec CBC 11/19/20 Range/Units 05:24 WBC 10.8 H (3.8-10.6) k/uL RBC 3.60 L (3.80-5.40) m/uL Hgb 9.7 L (11.4-16.0) gm/dL Hct 32.8 L (34.0-46.0) % Plt Count 384 (150-450) k/uL Comprehensive Metabolic Panel 11/19/20 Range/Units 05:24 Sodium 124 L (137-145) mmol/L Potassium 5.1 (3.5-5.1) mmol/L Chloride 99 (98-107) mmol/L Carbon Dioxide 17 L (22-30) mmol/L BUN 16 (7-17) mg/dL Creatinine 1.70 H (0.52-1.04) mg/dL Glucose 72 L (74-99) mg/dL Calcium 8.5 (8.4-10.2) mg/dL AST 20 (14-36) U/L ALT <6 (4-34) U/L Alkaline Phosphatase 72 (38-126) U/L Total Protein 4.1 L (6.3-8.2) g/dL Albumin 2.1 L (3.5-5.0) g/dL Current Medications Generic Name Dose Route Start Last Admin Trade Name Freq PRN Reason Stop Dose Admin Acetaminophen 500 mg 11/19/20 08:41 11/19/20 08:50 Acetaminophen Tab 500 Mg Tab PO 500 mg Q6HR PRN Administration Fever and/ or Pain Atorvastatin Calcium 40 mg 11/18/20 21:00 11/18/20 20:17 Atorvastatin 40 Mg Tab PO 40 mg HS GUANAKITO Administration Escitalopram Oxalate 10 mg 11/18/20 12:51 Escitalopram 10 Mg Tab PO DAILY PRN depression Hydromorphone HCl 0.5 mg 11/19/20 10:06 11/19/20 10:19 Hydromorphone 0.5 Mg/0.5 Ml Syringe IVP 0.5 mg Q4HR PRN Administration Pain Ceftriaxone Sodium 1 gm/ 50 mls @ 100 mls/hr 11/18/20 16:15 11/19/20 07:27 Sodium Chloride IVPB 100 mls/hr Q24HR G[facility]O Administration Naloxone HCl 0.2 mg 11/18/20 10:57 Naloxone 0.4 Mg/Ml 1 Ml Vial IV Q2M PRN Opioid Reversal Ondansetron HCl 4 mg 11/18/20 10:57 11/19/20 04:57 Ondansetron 4 Mg/2 Ml Vial IVP 4 mg Q8HR PRN Administration Nausea And Vomiting Pantoprazole Sodium 40 mg 11/18/20 17:30 11/19/20 07:26 Pantoprazole 40 Mg Tablet PO 40 mg AC-BID GUANAKITO Administration Simethicone 80 mg 11/18/20 12:51 Simethicone 80 Mg Chewable PO Q4H PRN discomfort Sotalol HCl 180 mg 11/18/20 21:00 11/19/20 07:26 Sotalol 120 Mg Tab PO 180 mg BID GUANAKITO Administration Intake and Output 11/18/20 11/19/20 11/19/20 22:59 06:59 14:59 Intake Total 290 530 120 Balance 290 530 120 Intake: Intake, IV Titration 50 50 Amount Sodium Chloride 0.9% 1, 50 50 000 ml @ 50 mls/hr IV . Q20H [facility] Rx#:[id number] Oral 240 480 120 Other: Voiding Method External Catheter 11/19/20 05:24 11/19/20 05:24 Assessment and Plan Assessment: Assessment #1 adenocarcinoma/malignancy with the primary source is not known at this point #2 abnormal transthoracic echocardiogram with possible mitral valve vegetation #3 permanent pacemaker implantation #4 multiple comorbid conditions Plan #1 continue the current medical regimen #2 proceed with a CYNTHIA this coming Saturday #3 follow-up with the patient
--- NOTE | 2020-11-19 11:00 | CT ---
EXAMINATION TYPE: CT brain wo con DATE OF EXAM: 11/19/2020 COMPARISON: None HISTORY: 70-year-old female possible metastatic disease, adenocarcinoma, dizziness TECHNIQUE: Examination was done in axial plane without intravenous contrast. Coronal and sagittal r econstructions performed. CT DLP: 1012.7 mGycm Automated exposure control for dose reduction was used. FINDINGS: IV contrast not administered due to acute kidney injury. There is no evidence of acute intracranial hemorrhage, acute ischemic changes, mass, mass-effect, or extra-axial fluid collection. There is no effacement of cerebral sulci or basal subarachnoid cister ns. There is no hydrocephalus. There is no midline shift. Craig-white matter distinction is preserv ed. Mild cerebral cortical volume loss. Mild patchy white matter hypodensities in both cerebral hemispher es. Slightly more focal 1.0 cm area in the subcortical lateral right frontal lobe, axial image 28. Moderate mucosal thickening left ethmoid air cells. Mastoid air cells well pneumatized. Orbits and gl obes are intact. IMPRESSION: Note that IV contrast was not administered due to acute kidney injury. There is mild burden of chroni c small vessel ischemic disease. A more focal 1 cm area of hypodensity in the subcortical lateral rig ht frontal lobe could represent additional chronic changes. A metastatic lesion is difficult to entir jessica exclude here. Following normalization of patient's kidney function, a contrast-enhanced study is recommended. No mass effect or midline shift.
[2020-11-19 11:37] LABS: Cancer Antigen 153 61.7 U/mL (0.0-32.3)
--- NOTE | 2020-11-19 15:58 | P.PN ---
Progress Note - Text Progress Note Date: 11/19/20 Chief Complaint: Weak and tired History of presenting complaint: This is a very pleasant 70-year-old patient who follows with Dr. Kenia Daniel. Chronic stable medical conditions include osteoarthritis, hypertension, hyperlipidemia, depression, insomnia. Patient was 2 days ago discharged from [facility]. Patient had a paracentesis carried out 3800 mL was removed. Cytology came back positive for adenocarcinoma. Follow-up was in progress. Patient has followed up with Dr. Dominguez in the past for iron deficiency and received IV iron. At home patient had been getting progressively worse. Barely able to walk. Does have a walker. . Very poor appetite. Constipation. Blood work from other hospitals reviewed. Also swelling in the lower extremity. No fever no chills. No cough. Abdomen some bit more distended. No pain Admitted with acute on chronic medical debility, medical asthenia, hyponatremia, secondary ascites, anorexia. Put on fluid restriction. Lasix. Abdominal ultrasound showed small ascites. Today: Laying in bed. Somewhat anxious about the new diagnosis. Did eat a bit. Intermittent abdominal sharp pain. Some relief with a heating pad. Review of systems: Was done for constitutional, cardiovascular, GI, pulmonary. r elevant finding as above Active Medications Acetaminophen (Acetaminophen Tab 500 Mg Tab) 500 mg PO Q6HR PRN PRN Reason: Fever and/ or Pain Last Admin: 11/19/20 08:50 Dose: 500 mg Documented by: Atorvastatin Calcium (Atorvastatin 40 Mg Tab) 40 mg PO HS [facility] Last Admin: 11/18/20 20:17 Dose: 40 mg Documented by: Escitalopram Oxalate (Escitalopram 10 Mg Tab) 10 mg PO DAILY PRN PRN Reason: depression Hydromorphone HCl (Hydromorphone 0.5 Mg/0.5 Ml Syringe) 0.5 mg IVP Q4HR PRN PRN Reason: Pain Last Admin: 11/19/20 10:19 Dose: 0.5 mg Documented by: Ceftriaxone Sodium 1 gm/ (Sodium Chloride) 50 mls @ 100 mls/hr IVPB Q24HR [facility] Last Admin: 11/19/20 07:27 Dose: 100 mls/hr Documented by: Naloxone HCl (Naloxone 0.4 Mg/Ml 1 Ml Vial) 0.2 mg IV Q2M PRN PRN Reason: Opioid Reversal Ondansetron HCl (Ondansetron 4 Mg/2 Ml Vial) 4 mg IVP Q8HR PRN PRN Reason: Nausea And Vomiting Last Admin: 11/19/20 04:57 Dose: 4 mg Documented by: Pantoprazole Sodium (Pantoprazole 40 Mg Tablet) 40 mg PO AC-BID [facility] Last Admin: 11/19/20 07:26 Dose: 40 mg Documented by: Simethicone (Simethicone 80 Mg Chewable) 80 mg PO Q4H PRN PRN Reason: discomfort Sotalol HCl (Sotalol 120 Mg Tab) 180 mg PO BID [facility] Last Admin: 11/19/20 07:26 Dose: 180 mg Documented by: Past medical history to include: Atrial fibrillation, hypertension, hyperlipidemia, iron deficiency anemia, gastric bypass surgery, just diagnosed with adenocarcinoma in the peritoneal fluid primary unknown, osteoarthritis Social history: Patient quit smoking in 1994. Sometimes has wine. . Walker. Physical examination: VITAL SIGNS: 97.6, 72, 18, 94 x 52, 97% room air GENERAL: Laying in bed, awake, tired EYES: Pupils equal. Conjunctiva palel. NECK: JVD unable to assess; masses not palpable. HEART: Irregular heart sounds; edema present. LUNGS: Respiratory rate increased decreased breath sounds. ABDOMEN: Soft, slight distention, nontender, liver spleen not palpable, no mass es palpable. PSYCH: [Alert and oriented x3; mood and affect a bit low MUSCULAR skeletal: Evidence of OA, NEUROLOGICAL: Cranial nerves grossly intact; no facial asymmetry, generally decreased power and sensation grossly intact. INVESTIGATIONS, reviewed in the clinical context: November 19: WBC 10.8 hemoglobin 9.7 sodium 124 potassium 5.[address] brain: Nonspecific Transvaginal ultrasound: Nonspecific 2-D echocardiogram: EF 60-65% CA 15-3 antigen 61.7. CA 27-29 131.2. CA-125 antigen to 90. Vitamin B12 2362 WBC 11.4 hemoglobin 11.1 platelets 434 sodium 125 potassium 5 BUN 12 creatinine 1.18 ProBNP 1180 albumin 2.3 UA positive for blood, leukoesterase, WBC,'s, squamous epithelial cells Coronavirus [PCR]: Not detected EKG tracing personally reviewed by me-atrial paced rhythm T-wave abnormality Chest x-ray film personally reviewed by [id number] pleural effusion Abdominal ultrasound: Small amount of ascites Investigations from the outside hospital: Hemoglobin 10.8 platelets 332 hepatitis screen for A, B, and C negative creatinine 0.79 CEA: 63 mL and 19-9:15 IgM and IgG: Low Antinuclear antibody, echocardiogram antibody, smooth muscle antibody all negative Assessment and plan: -Acute on chronic medical debility from adenocarcinoma/malignancy the primary is not known, progressive. poor appetite and losing weight -Acute on chronic gait dysfunction, from increasing medical asthenia Finding difficult to walk, was using a walker before that -Adenocarcinoma, diagnosed from peritoneal fluid last week, primary unknown Consultation to oncology. Workup in place -Secondary ascites likely from peritoneal seeding from adenocarcinoma. Abdominal ultrasound no treatment ascites. Doubt if it'll benefit from paracentesis We will do fluid restriction and diuretics -Hyponatremia, hypervolemic-worsening Fluid restriction to 15 00mL a. Low-salt diet. -Depression not otherwise specified Continue Lexapro -Persistent atrial fibrillation, with a pacemaker On sotalol and xarelto -GERD On omeprazole -Hyperlipidemia On Lipitor -Anemia normocytic of chronic disease including that of underlying malignancy Follow H&H -Chronic insomnia from multiple medical problems *Melatonin -Acute kidney injury, possible ATN Saline at 50 mL an hour. Get nephrology consultation Care was discussed length with the patient. It is also discussed. Consult nephrology. Follow with oncology.
[2020-11-19] MEDS: SODIUM CHLORIDE 0.9% 1,000 ML IV SCH (16:06)
[2020-11-19] MEDS: ATORVASTATIN 40 MG TAB PO SCH (20:04)
[2020-11-20] MEDS: ONDANSETRON 4 MG/2 ML VIAL IVP PRN ×3 (04:10→21:39)
[2020-11-20] MEDS: PANTOPRAZOLE 40 MG TABLET PO SCH ×2 (07:35→16:37)
[2020-11-20] MEDS: SOTALOL 120 MG TAB PO SCH ×2 (07:36→21:24)
[2020-11-20] MEDS: HYDROmorphone 0.5 MG/0.5 ML SYRINGE IVP PRN ×4 (07:43→23:08)
[2020-11-20] MEDS ORDERED: FUROSEMIDE 10 MG/ML 4 ML VIAL IV STA (09:39)
--- NOTE | 2020-11-20 09:43 | P.PN ---
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 Malignant cell was identified on pleurocentesis. She is in process of getting the workup regarding the primary source of the adenocarcinoma. An echocardiogram for some reason his was performed and showed potential vegetation on the mitral valve. And for that reason we consulted to see the patient The patient was seen today. She continues to feel weak and tired and fatigued. No chest pain and no chest discomfort and no shortness of breath. I did review the echocardiogram again and that showed an echodensity attached to the tip of the anterior mitral leaflet brought is located on the downstream side of the valve and not on the side side and is unlikely to be related to vegetation/infection. Beside that and giving the absence of fever and chills and also overall prognosis of the patient I don't think the patient will benefit from transesophageal echocardiogram and I discussed that with her in details and she is in full understanding and agreement. Objective - Vital Signs Vital signs: Vital Signs Temp 97.7 F 11/20/20 04:56 Pulse 70 11/20/20 04:56 Resp 18 11/20/20 04:56 BP 102/67 11/20/20 04:56 Pulse Ox 96 11/20/20 04:56 Intake & Output 11/19/20 11/20/20 11/20/20 18:59 06:59 18:59 Intake Total 1020 960 Output Total 250 Balance 770 960 Intake: Intake, IV Titration 200 600 Amount Sodium Chloride 0.9% 1, 150 600 000 ml @ 50 mls/hr IV . Q20H [facility] Rx#:[id number] cefTRIAXone 1 gm In 50 Sodium Chloride 0.9% 50 ml @ 100 mls/hr IVPB Q24HR [facility] Rx#:[id number] Oral 820 360 Output: Urine 250 Other: Voiding Method External Catheter External Catheter External Catheter # Voids 1 - Constitutional General appearance: Present: no acute distress - Respiratory Respiratory: bilateral: diminished - Cardiovascular Heart sounds: normal: S1, S2 Abnormal Heart Sounds: Present: systolic murmur - Labs CBC & Chem 7: 11/19/20 05:24 11/19/20 05:24 Labs: Abnormal Lab Results - Last 24 Hours (Table) 11/19/20 11/19/20 Range/Units 05:24 05:24 CA 15-3 Antigen 61.7 H (0.0-32.3) U/mL CA 27-29 131.2 H (0.0-38.5) U/mL CA 125 Antigen 290.0 H (0.0-30.1) U/mL Vitamin B12 2362.0 H (200.0-944.0) pg/mL Assessment and Plan Assessment: Assessment #1 adenocarcinoma/malignancy with the primary source is not known at this point #2 abnormal transthoracic echocardiogram unlikely to be mitral valve vegetation #3 permanent pacemaker implantation #4 multiple comorbid conditions Plan #1 no need for any further cardiac workup at this point #2 we'll follow-up with the patient on when necessary case
--- NOTE | 2020-11-20 09:43 | P.NPCON ---
History of Present Illness - Reason for Consult acute renal failure - History of Present Illness Reason for consultation: Acute kidney injury History of present illness: Patient is a 70-year-old female seen in renal consultation for acute kidney injury. Patient's creatinine was 1.18 on admission and was up to 1.7 as of yesterday. Labs from today are pending. Patient is maintained on normal saline at 50 mL an hour. Patient was recently discharged from [facility] about 3 days ago. During that admission she underwent a paracentesis with about 3.8 L drained. Patient was told of adenocarcinoma but the details are not known. Urine output has been low. No hematuria. No vomiting or diarrhea. Oral intake is fair. Sodium level was also low at 124 as of yesterday. She denies use of nonsteroidals. Denies any personal or family history of kidney disease. Echocardiogram revealed preserved ejection fraction. Abdominal ultrasound revealed small amount of ascites. She denies chest pain or shortness of breath. Vital signs are stable. General: The patient appeared well nourished and normally developed. HEENT: Head exam is unremarkable. Neck is without jugular venous distension. LUNGS: Breath sounds decreased. HEART: Rate and Rhythm are regular. ABDOMEN: Soft, distention noted. EXTREMITITES: No edema. Past Medical History Past Medical History: Atrial Fibrillation, Cancer, Hyperlipidemia, Hypertension Additional Past Medical History / Comment(s): anenia History of Any Multi-Drug Resistant Organisms: None Reported Past Surgical History: Appendectomy, Hernia Repair, Pacemaker, Tonsillectomy Additional Past Surgical History / Comment(s): Paracentis 11/28, gastic bypass, loop recorder placement Past Anesthesia/Blood Transfusion Reactions: No Reported Reaction Type of Cardiac Device: Permanent Pacemaker Device Placement Date:: 11/04/2020 Past Psychological History: Depression Smoking Status: Former smoker Past Alcohol Use History: Occasional - Past Family History Father Family Medical History: CVA/TIA, Hypertension Additional Family Medical History / Comment(s): Father from stroke Mother Additional Family Medical History / Comment(s): Mother from alzheimer's disease Medications and Allergies Home Medications Medication Instructions Recorded Confirmed Type traZODone HCL [TraZODone HCl] 50 - 150 mg PO TID PRN 10/11/20 11/18/20 History Atorvastatin [Lipitor] 40 mg PO HS 11/18/20 11/18/20 History Escitalopram [Lexapro] 10 mg PO DAILY PRN 11/18/20 11/18/20 History Omeprazole 40 mg PO DAILY 11/18/20 11/18/20 History Rivaroxaban [Xarelto] 15 mg PO W/SUPPER 11/18/20 11/18/20 History Simethicone 80 mg PO Q4H PRN 11/18/20 11/18/20 History Sotalol [Betapace] 180 mg PO BID 11/18/20 11/18/20 History Sucralfate [Carafate] 1 gm PO Q8H 11/18/20 11/18/20 History tiZANidine HCL [Zanaflex] 2 mg PO TID PRN 11/18/20 11/18/20 History Allergies Allergy/AdvReac Type Severity Reaction Status Date / Time isosorbide [From [facility]] Allergy Severe Anaphylaxis Verified 11/18/20 09:40 hydralazine Allergy Rash/Hives Verified 11/18/20 09:40 Physical Exam Vitals: Vital Signs Temp Pulse Resp BP Pulse Ox 11/20/20 04:56 97.7 F 70 18 102/67 96 11/19/20 20:11 97.5 F L 70 18 100/56 99 11/19/20 20:05 18 11/19/20 13:00 97.6 F 72 18 94/52 97 Intake and Output 11/19/20 11/20/20 11/20/20 22:59 06:59 14:59 Intake Total 1140 720 Output Total 250 Balance 890 720 Intake: Intake, IV Titration 200 600 Amount Sodium Chloride 0.9% 1, 150 600 000 ml @ 50 mls/hr IV . Q20H [facility] Rx#:[id number] cefTRIAXone 1 gm In 50 Sodium Chloride 0.9% 50 ml @ 100 mls/hr IVPB Q24HR [facility] Rx#:[id number] Oral 940 120 Output: Urine 250 Other: Voiding Method External Catheter External Catheter # Voids 1 Results - Lab Results Most recent lab results Calcium 8.5 mg/dL (8.4-10.2) 11/19/20 05:24 Magnesium 1.8 mg/dL (1.6-2.3) 11/19/20 05:24 11/19/20 05:24 11/19/20 05:24 Assessment and Plan Plan: Assessment: 1. Acute kidney injury secondary to ATN. Creatinine 1.7 as of yesterday. Blood pressure has been low in the systolic 90s to low 100s. 2. Hypervolemic hyponatremia. 3. Metabolic acidosis secondary to acute kidney injury. 4. Recently diagnosed adenocarcinoma with unknown primary. 5. Ascites. Potential paracentesis tomorrow. Plan: Lasix 40 mg IV once today. Check renal ultrasound. Maintain fluid restriction. Add oral sodium bicarbonate. Encourage oral intake, especially protein. Avoid nephrotoxins. Possible paracentesis tomorrow. 25 g albumin pre-and post procedure. Continue to monitor renal function and urine output. Thank you for the consultation. I will continue to follow the patient with you during her hospital stay.
[2020-11-20] MEDS: SODIUM BICARBONATE TAB 650 MG TAB PO SCH ×3 (10:29→21:24)
--- NOTE | 2020-11-20 11:39 | US ---
EXAMINATION TYPE: US kidneys/renal and bladder DATE OF EXAM: 11/20/2020 COMPARISON: NONE CLINICAL HISTORY: 70-year-old female acute kidney injury TECHNIQUE: Multiple sonographic images of the kidneys and bladder are obtained. FINDINGS: EXAM MEASUREMENTS: Right Kidney: 8.5 x 3.6 x 4.5 cm Left Kidney: 9.4 x 4.4 x 3.7 cm Right Kidney: no evidence of hydronephrosis Left Kidney: limited visualization due to overlying bowel content, no nisha hydronephrosis seen Bladder: not visualized Incidental: *cystic area within spleen = 1.9cm *mild abdominal ascites IMPRESSION: 1. Incidental mild abdominal ascites. Correlate as to etiology. 2. Some exam limitations as above. No evident hydronephrosis on either side. 3. Unable to adequately assess the bladder.
[2020-11-20] MEDS: MIDODRINE 5 MG TAB PO SCH ×2 (12:28→16:37)
[2020-11-20] MEDS: SODIUM CHLORIDE 0.9% 1,000 ML IV SCH (12:28)
--- NOTE | 2020-11-20 12:41 | USB ---
EXAMINATION TYPE: US breast axilla RT, US breast axilla LT DATE OF EXAM: 11/20/2020 COMPARISON: NONE CLINICAL HISTORY: 70-year-old female metastatic cancer. TECHNIQUE: Bilateral axillary ultrasound scans. FINDINGS: The provided images show no solid or cystic lesion within the axilla during ultrasound scanning. No a xillary lymphadenopathy seen. The chemical instrumentation officer did not submit any preliminary impression during real-t shania scanning. IMPRESSION: The chemical instrumentation officer did not submit their preliminary impression during real-time scanning. However, provi ded images show no axillary lymphadenopathy or solid or cystic lesion within either axilla.
--- NOTE | 2020-11-20 16:50 | P.PN ---
Progress Note - Text Progress Note Date: 11/20/20 Chief Complaint: Weak and tired History of presenting complaint: This is a very pleasant 70-year-old patient who follows with Dr. Kenia Daniel. Chronic stable medical conditions include osteoarthritis, hypertension, hyperlipidemia, depression, insomnia. Patient was 2 days ago discharged from [facility]. Patient had a paracentesis carried out 3800 mL was removed. Cytology came back positive for adenocarcinoma. Follow-up was in progress. Patient has followed up with Dr. Dominguez in the past for iron deficiency and received IV iron. At home patient had been getting progressively worse. Barely able to walk. Does have a walker. . Very poor appetite. Constipation. Blood work from other hospitals reviewed. Also swelling in the lower extremity. No fever no chills. No cough. Abdomen some bit more distended. No pain Admitted with acute on chronic medical debility, medical asthenia, hyponatremia, secondary ascites, anorexia. Put on fluid restriction. Lasix. Abdominal ultrasound showed small ascites. Also acute kidney injury felt to be ATN. Consultation made to oncology, nephrology. Today: Continues to have intermittent abdominal pain. Tired. Did eat some. Earlier had some nausea. Had a small bowel movement. Laying in a recliner. Review of systems: Was done for constitutional, cardiovascular, GI, pulmonary. relevant finding as above Active Medications Acetaminophen (Acetaminophen Tab 500 Mg Tab) 500 mg PO Q6HR PRN PRN Reason: Fever and/ or Pain Last Admin: 11/19/20 08:50 Dose: 500 mg Documented by: Atorvastatin Calcium (Atorvastatin 40 Mg Tab) 40 mg PO HS [facility] Last Admin: 11/19/20 20:04 Dose: 40 mg Documented by: Escitalopram Oxalate (Escitalopram 10 Mg Tab) 10 mg PO DAILY PRN PRN Reason: depression Hydromorphone HCl (Hydromorphone 0.5 Mg/0.5 Ml Syringe) 0.5 mg IVP Q4HR PRN PRN Reason: Pain Last Admin: 11/20/20 13:56 Dose: 0.5 mg Documented by: Ceftriaxone Sodium 1 gm/ (Sodium Chloride) 50 mls @ 100 mls/hr IVPB Q24HR [facility] Last Admin: 11/20/20 07:35 Dose: 100 mls/hr Documented by: Sodium Chloride (Saline 0.9%) 1,000 mls @ 50 mls/hr IV .Q20H [facility] Last Admin: 11/20/20 12:28 Dose: 50 mls/hr Documented by: Albumin Human 50 ml/ IV (Solution) 50 mls @ 50 mls/hr IVPB Q1H [facility] Stop: 11/21/20 10:59 Albumin Human 50 ml/ IV (Solution) 50 mls @ 50 mls/hr IVPB Q1H [facility] Stop: 11/21/20 15:59 Midodrine (Midodrine 5 Mg Tab) 5 mg PO AC-TID [facility] Last Admin: 11/20/20 16:37 Dose: 5 mg Documented by: Naloxone HCl (Naloxone 0.4 Mg/Ml 1 Ml Vial) 0.2 mg IV Q2M PRN PRN Reason: Opioid Reversal Ondansetron HCl (Ondansetron 4 Mg/2 Ml Vial) 4 mg IVP Q8HR PRN PRN Reason: Nausea And Vomiting Last Admin: 11/20/20 13:56 Dose: 4 mg Documented by: Pantoprazole Sodium (Pantoprazole 40 Mg Tablet) 40 mg PO AC-BID [facility] Last Admin: 11/20/20 16:37 Dose: 40 mg Documented by: Simethicone (Simethicone 80 Mg Chewable) 80 mg PO Q4H PRN PRN Reason: discomfort Sodium Bicarbonate (Sodium Bicarbonate Tab 650 Mg Tab) 650 mg PO TID [facility] Last Admin: 11/20/20 16:37 Dose: 650 mg Documented by: Sotalol HCl (Sotalol 120 Mg Tab) 180 mg PO BID [facility] Last Admin: 11/20/20 07:36 Dose: 180 mg Documented by: Past medical history to include: Atrial fibrillation, hypertension, hyperlipidemia, iron deficiency anemia, gastric bypass surgery, just diagnosed with adenocarcinoma in the peritoneal fluid primary unknown, osteoarthritis Social history: Patient quit smoking in 1994. Sometimes has wine. . Walker. Physical examination: VITAL SIGNS: 97.5, 72, 18, 88/62, 100% room air GENERAL: A recliner, tired EYES: Pupils equal. Conjunctiva palel. NECK: JVD unable to assess; masses not palpable. HEART: Irregular heart sounds; edema present. LUNGS: Respiratory rate increased decreased breath sounds. ABDOMEN: Soft, slight distention, nontender, liver spleen not palpable, no masses palpable. PSYCH: [Alert and oriented x3; mood and affect a bit low MUSCULAR skeletal: Evidence of OA, NEUROLOGICAL: Cranial nerves grossly intact; no facial asymmetry, generally decreased power and sensation grossly intact. INVESTIGATIONS, reviewed in the clinical context: Ultrasound depressed axilla and right to left: No obvious lymph node detected Ultrasound kidney bladder: Mild ascites. No evidence of medical renal disease reported November 19: WBC 10.8 hemoglobin 9.7 sodium 124 potassium 5.[address] brain: Nonspecific Transvaginal ultrasound: Nonspecific 2-D echocardiogram: EF 60-65% CA 15-3 antigen 61.7. CA 27-29 131.2. CA-125 antigen to 90. Vitamin B12 2362 WBC 11.4 hemoglobin 11.1 platelets 434 sodium 125 potassium 5 BUN 12 creatinine 1.18 ProBNP 1180 albumin 2.3 UA positive for blood, leukoesterase, WBC,'s, squamous epithelial cells Coronavirus [PCR]: Not detected EKG tracing personally reviewed by me-atrial paced rhythm T-wave abnormality Chest x-ray film personally reviewed by [id number] pleural effusion Abdominal ultrasound: Small amount of ascites Investigations from the outside hospital: Hemoglobin 10.8 platelets 332 hepatitis screen for A, B, and C negative creatinine 0.79 CEA: 63 mL and 19-9:15 IgM and IgG: Low Antinuclear antibody, echocardiogram antibody, smooth muscle antibody all negative Assessment and plan: -Acute on chronic medical debility from adenocarcinoma/malignancy the primary is not known, progressive. poor appetite and losing weight -Acute on chronic gait dysfunction, from increasing medical asthenia Finding difficult to walk, was using a walker before that -Adenocarcinoma, diagnosed from peritoneal fluid last week, primary unknown Consultation to oncology. Workup in place -Secondary ascites likely from peritoneal seeding from adenocarcinoma. Abdominal ultrasound no treatment ascites. Doubt if it'll benefit from paracentesis We will do fluid restriction and diuretics -Hyponatremia, hypervolemic-worsening Fluid restriction to 15 00mL a. Low-salt diet. -Depression not otherwise specified Continue Lexapro -Persistent atrial fibrillation, with a pacemaker On sotalol and xarelto -GERD On omeprazole -Hyperlipidemia On Lipitor -Anemia normocytic of chronic disease including that of underlying malignancy Follow H&H -Chronic insomnia from multiple medical problems *Melatonin -Acute kidney injury, possible ATN Saline at 50 mL an hour. Get nephrology consultation -Edema likely from hypoalbuminemia, in the setting of intravascular depletion. Diuretics probably will make renal function worse Care was discussed with the patient. Workup in place to determine the primary. Follow with consultants.
[2020-11-20] MEDS: ATORVASTATIN 40 MG TAB PO SCH (21:25)
[2020-11-21] MEDS: HYDROmorphone 0.5 MG/0.5 ML SYRINGE IVP PRN ×4 (04:25→19:12)
[2020-11-21] MEDS: SODIUM CHLORIDE 0.9% 1,000 ML IV SCH (05:49)
[2020-11-21 06:18] LABS: African American GFR (CKD) 23 (>60 ml/min/1.73 sqM); Anion Gap 10 mmol/L; Blood Urea Nitrogen 25 mg/dL (7-17); Carbon Dioxide 14 mmol/L (22-30); Chloride 101 mmol/L (98-107); Glucose 71 mg/dL (74-99); Non-African American GFR(CKD) 20 (>60 ml/min/1.73 sqM); Potassium 5.3 mmol/L (3.5-5.1); Sodium 125 mmol/L (137-145)
[2020-11-21] MEDS: MIDODRINE 5 MG TAB PO SCH ×3 (08:18→17:45)
[2020-11-21] MEDS: PANTOPRAZOLE 40 MG TABLET PO SCH ×2 (08:18→17:45)
[2020-11-21] MEDS: SOTALOL 120 MG TAB PO SCH ×2 (08:19→20:49)
[2020-11-21] MEDS: SODIUM BICARBONATE TAB 650 MG TAB PO SCH ×3 (08:19→20:45)
[2020-11-21] MEDS: ONDANSETRON 4 MG/2 ML VIAL IVP PRN ×2 (08:31→19:11)
[2020-11-21] MEDS: ALBUMIN HUMAN 25% 50 ML in EMPTY BAG 1 BAG IVPB SCH ×4 (10:00→12:27)
[2020-11-21 10:10] LABS: Anisocytosis Slight; Basophils % (A) 0 %; Eosinophils # (A) 0.1 k/uL (0-0.7); Eosinophils % (A) 1 %; HCT 35.8 % (34.0-46.0); HGB 10.2 gm/dL (11.4-16.0); Hypochromasia Marked; Lymphocytes # (A) 0.9 k/uL (1.0-4.8); Lymphocytes % (A) 6 %; MCHC 28.4 g/dL (31.0-37.0); MCV 91.6 fL (80.0-100.0); Mean Platelet Volume 10.4; Monocytes # (A) 1.2 k/uL (0-1.0); Monocytes % (A) 7 %; Neutrophils # (A) 13.9 k/uL (1.3-7.7); Neutrophils % (A) 86 %; Platelet Count 419 k/uL (150-450); RBC 3.91 m/uL (3.80-5.40); RDW 19.7 % (11.5-15.5); WBC 16.2 k/uL (3.8-10.6)
[2020-11-21] MEDS: SODIUM CHLORIDE 0.45% 1,000 ML with SODIUM BICARB (1 MEQ/ML) 150 ML IV SCH ×2 (11:12)
--- NOTE | 2020-11-21 12:35 | US ---
Ultrasound-guided paracentesis. DATE OF EXAM: 11/21/2020 CLINICAL HISTORY: Ascites The procedure was discussed with the patient. The risks, complications, benefits, and alternatives we re discussed and any questions were answered. Informed consent was obtained. The patient was placed s upine on the ultrasound table and prepped and draped in the usual sterile fashion. All elements of maximal barrier technique were utilized. Under ultrasound guidance, access into the right lower quadrant was obtained, via the paracentesis catheter system and direct ultrasound guidanc e. Approximately 4 liters of straw-colored fluid was removed. The patient was stable throughout the proc edure and remained stable upon discharge from Department of Radiology. Sample sent to pathology for a nalysis. IMPRESSION: Successful paracentesis under ultrasound guidance.
--- NOTE | 2020-11-21 14:51 | P.PN ---
Progress Note - Text Progress Note Date: 11/21/20 Chief Complaint: Weak and tired History of presenting complaint: This is a very pleasant 70-year-old patient who follows with Dr. Kenia Daniel. Chronic stable medical conditions include osteoarthritis, hypertension, hyperlipidemia, depression, insomnia. Patient was 2 days ago discharged from [facility]. Patient had a paracentesis carried out 3800 mL was removed. Cytology came back positive for adenocarcinoma. Follow-up was in progress. Patient has followed up with Dr. Dominguez in the past for iron deficiency and received IV iron. At home patient had been getting progressively worse. Barely able to walk. Does have a walker. . Very poor appetite. Constipation. Blood work from other hospitals reviewed. Also swelling in the lower extremity. No fever no chills. No cough. Abdomen some bit more distended. No pain Admitted with acute on chronic medical debility, medical asthenia, hyponatremia, secondary ascites, anorexia. Put on fluid restriction. Lasix. Abdominal ultrasound showed small ascites. Also acute kidney injury felt to be ATN. Consultation made to oncology, nephrology. Urine has been poor. Today: About 4 L of straw-colored paracentesis done today. Postprocedure hypotensive. 1 L fluid bolus given. Tired. Decreased appetite Review of systems: Was done for constitutional, cardiovascular, GI, pulmonary. relevant finding as above Active Medications Acetaminophen (Acetaminophen Tab 500 Mg Tab) 500 mg PO Q6HR PRN PRN Reason: Fever and/ or Pain Last Admin: 11/19/20 08:50 Dose: 500 mg Documented by: Atorvastatin Calcium (Atorvastatin 40 Mg Tab) 40 mg PO HS [facility] Last Admin: 11/20/20 21:25 Dose: 40 mg Documented by: Escitalopram Oxalate (Escitalopram 10 Mg Tab) 10 mg PO DAILY PRN PRN Reason: depression Hydromorphone HCl (Hydromorphone 0.5 Mg/0.5 Ml Syringe) 0.5 mg IVP Q4HR PRN PRN Reason: Pain Last Admin: 11/21/20 12:27 Dose: 0.5 mg Documented by: Ceftriaxone Sodium 1 gm/ (Sodium Chloride) 50 mls @ 100 mls/hr IVPB Q24HR [facility] Last Admin: 11/21/20 08:18 Dose: 100 mls/hr Documented by: Albumin Human 50 ml/ IV (Solution) 50 mls @ 50 mls/hr IVPB Q1H [facility] Stop: 11/21/20 15:59 Last Admin: 11/21/20 12:27 Dose: 50 mls/hr Documented by: Sodium Bicarbonate 150 ml/ (Sodium Chloride) 1,150 mls @ 50 mls/hr IV .Q23H [facility] Last Admin: 11/21/20 11:12 Dose: 50 mls/hr Documented by: Midodrine (Midodrine 5 Mg Tab) 10 mg PO AC-TID [facility] Last Admin: 11/21/20 12:27 Dose: 10 mg Documented by: Naloxone HCl (Naloxone 0.4 Mg/Ml 1 Ml Vial) 0.2 mg IV Q2M PRN PRN Reason: Opioid Reversal Ondansetron HCl (Ondansetron 4 Mg/2 Ml Vial) 4 mg IVP Q8HR PRN PRN Reason: Nausea And Vomiting Last Admin: 11/21/20 08:31 Dose: 4 mg Documented by: Pantoprazole Sodium (Pantoprazole 40 Mg Tablet) 40 mg PO AC-BID [facility] Last Admin: 11/21/20 08:18 Dose: 40 mg Documented by: Simethicone (Simethicone 80 Mg Chewable) 80 mg PO Q4H PRN PRN Reason: discomfort Sodium Bicarbonate (Sodium Bicarbonate Tab 650 Mg Tab) 650 mg PO TID [facility] Last Admin: 11/21/20 08:19 Dose: 650 mg Documented by: Sotalol HCl (Sotalol 120 Mg Tab) 180 mg PO BID [facility] Last Admin: 11/21/20 08:19 Dose: 180 mg Documented by: Past medical history to include: Atrial fibrillation, hypertension, hyperlipidemia, iron deficiency anemia, gastric bypass surgery, just diagnosed with adenocarcinoma in the peritoneal fluid primary unknown, osteoarthritis Social history: Patient quit smoking in 1994. Sometimes has wine. . Walker. Physical examination: VITAL SIGNS: 97.6, 78, sitting 18, 92/49, 96% room air GENERAL: Reclining in bed, tired EYES: Pupils equal. Conjunctiva pale. NECK: JVD unable to assess; masses not palpable. HEART: Irregular heart sounds; edema present. LUNGS: Respiratory rate increased decreased breath sounds. ABDOMEN: Soft, slight distention, mild tenderness, liver spleen not palpable, no masses palpable. PSYCH: [Alert and oriented x3; mood and affect a bit low MUSCULAR skeletal: Evidence of OA, NEUROLOGICAL: Cranial nerves grossly intact; no facial asymmetry, generally decreased power and sensation grossly intact. INVESTIGATIONS, reviewed in the clinical context: November 21: WBC 16.2 hemoglobin 10.2 sodium 125 potassium 5.3 BUN 25 creatinine 2.40 Ultrasound axilla and right to left: No obvious lymph node detected Ultrasound kidney bladder: Mild ascites. No evidence of medical renal disease reported November 19: WBC 10.8 hemoglobin 9.7 sodium 124 potassium 5.[address] brain: Nonspecific Transvaginal ultrasound: Nonspecific 2-D echocardiogram: EF 60-65% CA 15-3 antigen 61.7. CA 27-29 131.2. CA-125 antigen to 90. Vitamin B12 2362 WBC 11.4 hemoglobin 11.1 platelets 434 sodium 125 potassium 5 BUN 12 creatinine 1.18 ProBNP 1180 albumin 2.3 UA positive for blood, leukoesterase, WBC,'s, squamous epithelial cells Coronavirus [PCR]: Not detected EKG tracing personally reviewed by me-atrial paced rhythm T-wave abnormality Chest x-ray film personally reviewed by [id number] pleural effusion Abdominal ultrasound: Small amount of ascites Investigations from the outside hospital: Hemoglobin 10.8 platelets 332 hepatitis screen for A, B, and C negative creatinine 0.79 CEA: 63 mL and 19-9:15 IgM and IgG: Low Antinuclear antibody, echocardiogram antibody, smooth muscle antibody all negative Assessment and plan: -Acute on chronic medical debility from adenocarcinoma/malignancy the primary is not known, progressive. poor appetite and losing weight -Acute on chronic gait dysfunction, from increasing medical asthenia Finding difficult to walk, was using a walker before that -Adenocarcinoma, diagnosed from peritoneal fluid last week, primary unknown Consultation to oncology. Workup in place -Secondary ascites likely from peritoneal seeding from adenocarcinoma. Paracentesis-4 L of stroke: Fluid removed -Hyponatremia, hypervolemic-worsening Fluid restriction to 15 00mL a. Low-salt diet. -Depression not otherwise specified Continue Lexapro -Persistent atrial fibrillation, with a pacemaker On sotalol and xarelto -GERD On omeprazole -Hyperlipidemia On Lipitor -Anemia normocytic of chronic disease including that of underlying malignancy Follow H&H -Chronic insomnia from multiple medical problems *Melatonin -Acute kidney injury, possible ATN-worsening Patient received Lasix. Be followed by nephrology. Looks like intravascular depletion. Decreased urine output. Given 1 L fluid bolus today. -Edema likely from hypoalbuminemia, -Mild protein calorie malnutrition, from decreased oral intake Care was discussed with the patient. Follow with oncology nephrology. Follow labs closely.
--- NOTE | 2020-11-21 15:08 | P.PN ---
Subjective Progress Note Date: 11/21/20 Principal diagnosis: New metastatic Cancer Unknown primary Worsening renal function and third spacing, unable to perform contrasted study to assess for brain mets. Objective - Vital Signs Vital signs: Vital Signs Temp 97.6 F 11/21/20 03:03 Pulse 75 11/21/20 09:50 Resp 18 11/21/20 10:12 BP 99/46 11/21/20 10:12 Pulse Ox 97 11/21/20 10:12 Intake & Output 11/20/20 11/21/20 11/21/20 18:59 06:59 18:59 Intake Total 410 840 Output Total 45 Balance 410 795 Intake: Intake, IV Titration 50 600 Amount Sodium Chloride 0.9% 1, 600 000 ml @ 50 mls/hr IV . Q20H [facility] Rx#:[id number] cefTRIAXone 1 gm In 50 Sodium Chloride 0.9% 50 ml @ 100 mls/hr IVPB Q24HR [facility] Rx#:[id number] Oral 360 240 Output: Urine 45 Uretheral (Alcantar) 45 Other: Voiding Method External Catheter Indwelling Catheter # Voids 1 # Bowel Movements 1 - Exam Gen: No acute distress HEENT: Conjunctival pallor. Neck: Supple Lungs: No respiratory distress Heart: Normal rate Abdomen: Distended MSK: No obvious deformities Neuro: Alert and oriented 3 Psych: Appropriate affect. Tearful about new cancer finding. Skin: No jaundice - Labs CBC & Chem 7: 11/21/20 04:46 11/21/20 04:46 Labs: Abnormal Lab Results - Last 24 Hours (Table) 11/21/20 11/21/20 Range/Units 04:46 04:46 WBC 16.2 H (3.8-10.6) k/uL Hgb 10.2 L (11.4-16.0) gm/dL MCHC 28.4 L (31.0-37.0) g/dL RDW 19.7 H (11.5-15.5) % Neutrophils # 13.9 H (1.3-7.7) k/uL Lymphocytes # 0.9 L (1.0-4.8) k/uL Monocytes # 1.2 H (0-1.0) k/uL Sodium 125 L (137-145) mmol/L Potassium 5.3 H (3.5-5.1) mmol/L Carbon Dioxide 14 L (22-30) mmol/L BUN 25 H (7-17) mg/dL Creatinine 2.40 H (0.52-1.04) mg/dL Glucose 71 L (74-99) mg/dL Calcium 8.0 L (8.4-10.2) mg/dL Assessment and Plan Plan: Assessment and Recommendations: Acute Renal Insufficiency: - WOrsening, creatinine >2 today - Nephrology following Presentation for Chest Pain: - Unknown etiology, COVID Negative, Mild effusions bilateral and bibasilar atelectasis New Onset Abdominal Ascites: - Status POst Paracentesis on 11/11/20 at [facility]: - 300cc removed again on 08/15/20 - Cytology Positive for Adenocarcinoma, Origin suspicious for upper GI or LEAD ADVISOR/Breast Origin, however remains unknown at this time - Hx: iron deficiency anemia, Bariatric bypass surgery and inability to adequately scope over the years with chronic Iron deficiency. - Full breast exam and bilateral axillary without palpable or clinical findings to suggest malignancy, CT did not reveal abnormality. - AFP <2.7 (WNL), CA19-9 15 (WNL), CEA 6.3 (mild elevated) Chronic Iron Deficiency thought to be related to AVM/GI Blood loss and Absorbption secondary to past history - EGD 10/22/20: No evidence of bleeding or suspicion for malignancy. Report does mention erythema - Colonoscopy on 11/16/20: no evidence of bleeding, Left sided diverticulosis, internal hemorrhoids. No mass or definitive primary malignancy - She does have history of erosive esophagitis and ETOH Component B12 Deficiency: - Jonathan and Y history and malabsorption - Recheck B12 and FOlate and supplement prn Sick Sinus Syndrome/Paroxysmal Atrial FIbrillation: - Status Post Pacemaker Placement Recent: 11/04/20 - Continues on Xarelto - Cardiology to follow is recommended - Echocardiogram on 11/12/20: 55-60% EF Right Ventricle a 4.6x5.0 cm echodensity with a fluid filled cyst-like structure noted in the subcostal view (Dedicated imaging advised), not seen on 12/07/20 study Hyponatremia: - Secondary to third space - Nephrology to consult Depression/Anxiety: -Celexa Generalized Weakness: - PT/OT Thank you for allowing us to participate in the care of your patient will follow along with you Plan: - Patient has overall worsened through the weekend, renal function decreased and thrid space worsening. - Paracentesis with repeat cytology and further molecular tests - Nephrology to continue assist with renal function - Aggressive supportive care, patient status has declined. Physician attest: I have completed the full history and physical and agree with above dictation, dictated as a scribe
[2020-11-21 15:16] LABS: Color,BF Yellow
[2020-11-21 15:17] LABS: Appearance,BF Hazy; Nucleated Cells, Body Fluid 95 /uL; RBC, Body Fluid 1345 /uL
--- NOTE | 2020-11-21 15:18 | P.PN ---
Subjective Progress Note Date: 11/21/20 Principal diagnosis: Ascites 70-year-old female who presented to the emergency department on Saturday with increased abdominal pain and distention. Patient was previously admitted and discharged the day before from [facility] in [place] for abdominal distention and abdominal pain. Patient had undergone paracentesis and cytology came back as adenocarcinoma, unknown origin at this time. She also underwent a colonoscopy during that admission SHOWED no GI bleed, diverticulosis, and internal hemorrhoids with no biopsies obtained. Today she underwent paracentesis and had an episode of hypotension following. She received albumin and pre-and post. She is somewhat confused today. She denies any abdominal pain currently, no nausea, and no vomiting. Oncology is on consult and ordered tumor markers, her CA-125 is elevated, CA-27-29 131, CA 15 361.7. She is also scheduled to undergo a CYNTHIA today, cardiology is on consult and patient underwent an echocardiogram that was abnormal and showed questionable vegetation. Objective - Vital Signs Vital signs: Vital Signs Temp 97.6 F 11/21/20 03:03 Pulse 75 11/21/20 09:50 Resp 18 11/21/20 10:12 BP 99/46 11/21/20 10:12 Pulse Ox 97 11/21/20 10:12 Intake & Output 11/20/20 11/21/20 11/21/20 18:59 06:59 18:59 Intake Total 410 840 Output Total 45 Balance 410 795 Intake: Intake, IV Titration 50 600 Amount Sodium Chloride 0.9% 1, 600 000 ml @ 50 mls/hr IV . Q20H [facility] Rx#:[id number] cefTRIAXone 1 gm In 50 Sodium Chloride 0.9% 50 ml @ 100 mls/hr IVPB Q24HR [facility] Rx#:[id number] Oral 360 240 Output: Urine 45 Uretheral (Lacantar) 45 Other: Voiding Method External Catheter Indwelling Catheter Indwelling Catheter # Voids 1 # Bowel Movements 1 - Exam General appearance: The patient is alert, oriented, appears in no acute distress. HET: Head is normocephalic and atraumatic. Conjunctiva pink. Sclera anicteric. Neck: Supple without lymphadenopathy. Abdomen: Soft, nontender, nondistended with bowel sounds. No guarding or rigidity. Extremities: Normal skin color and turgor. No pedal edema Skin: No rashes, no jaundice Neurological: No focal deficits. Alert and oriented 3. - Labs CBC & Chem 7: 11/21/20 04:46 11/21/20 04:46 Labs: Abnormal Lab Results - Last 24 Hours (Table) 11/21/20 11/21/20 Range/Units 04:46 04:46 WBC 16.2 H (3.8-10.6) k/uL Hgb 10.2 L (11.4-16.0) gm/dL MCHC 28.4 L (31.0-37.0) g/dL RDW 19.7 H (11.5-15.5) % Neutrophils # 13.9 H (1.3-7.7) k/uL Lymphocytes # 0.9 L (1.0-4.8) k/uL Monocytes # 1.2 H (0-1.0) k/uL Sodium 125 L (137-145) mmol/L Potassium 5.3 H (3.5-5.1) mmol/L Carbon Dioxide 14 L (22-30) mmol/L BUN 25 H (7-17) mg/dL Creatinine 2.40 H (0.52-1.04) mg/dL Glucose 71 L (74-99) mg/dL Calcium 8.0 L (8.4-10.2) mg/dL Assessment and Plan (1) Ascites Narrative/Plan: 62-year-old female who presented to the emergency department today with complaints of abdominal pain and abdominal distention with increased weakness who was recently diagnosed with adenocarcinoma about 2 days ago and discharged from [facility] yesterday. She had a new diagnosis of ascites and underwent a paracentesis with fluid cytology showing adenocarcinoma. She also had 3.8 L of fluid removed. 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 She had been noticing increased abdominal distention over the past 1-2 weeks. She has no previous history of liver disease, no previous alcohol abuse or family history of liver disease. LFTs show total bilirubin 0.4, alkaline phosphatase 72, AST 60, ALT 6, amylase 2.3, lipase less than 30. She also recently underwent a colonoscopy at [place] 3-4 days ago, which she states was normal. She had a CT of the abdomen and pelvis at [facility] showing a small pleural effusion bilaterally with mild bibasilar lung atelectasis. Large amount of ascites. At this time patient showing adenocarcinoma with unknown origin. Oncology is on consult. Current Visit: Yes Status: Acute Code(s): R18.8 - OTHER ASCITES SNOMED Code(s): 785768667 (2) Adenocarcinoma Narrative/Plan: Pathology following patient. Tumor markers have been ordered per oncology. Oncology recommend EGD. Current Visit: Yes Status: Acute Code(s): C80.1 - MALIGNANT (PRIMARY) NEOPLASM, UNSPECIFIED SNOMED Code(s): 053056815 (3) Hyponatremia Narrative/Plan: Nephrology on consult for hyponatremia, acute kidney injury Current Visit: Yes Status: Acute Code(s): E87.1 - HYPO-OSMOLALITY AND HYPONATREMIA SNOMED Code(s): 33455138 (4) Hypotension Current Visit: Yes Status: Acute Code(s): I95.9 - HYPOTENSION, UNSPECIFIED SNOMED Code(s): 43844490 Plan: 1. Continue symptomatic and supportive care 2. Low sodium diet nothing by mouth after midnight 3. Nephrology on consult, appreciate their recommendations on diuretics 4. Paracentesis with fluid studies ordered 5. Repeat CBC 6. Continue Rocephin 7. Oncology on consult, appreciate recommendations 8. Plan for EGD tomorrow if blood pressure and labs stable Dr. Scott Lama I agree with the dictator's note, documented as a scribe by Aide Amaro.
[2020-11-21 15:39] LABS: Mononuclear WBC,Body Fluid 28 %; Polynuclear WBC,Body Fluid 72 %; Total Cells Counted,Body Fluid 100
[2020-11-21] MEDS: RIVAROXABAN 15 MG TAB PO SCH (20:44)
[2020-11-21] MEDS: ATORVASTATIN 40 MG TAB PO SCH (20:45)
[2020-11-21 21:01] LABS: Albumin, Fluid Source Ascites; Total Protein, Body Fluid 2000 mg/dL
[2020-11-22] MEDS: HYDROmorphone 0.5 MG/0.5 ML SYRINGE IVP PRN ×3 (01:54→21:27)
[2020-11-22 04:39] LABS: Anisocytosis Slight; Basophils % (A) 0 %; Eosinophils # (A) 0.1 k/uL (0-0.7); Eosinophils % (A) 1 %; HCT 27.9 % (34.0-46.0); Hypochromasia Marked; Lymphocytes # (A) 0.5 k/uL (1.0-4.8); Lymphocytes % (A) 4 %; MCH 26.1 pg (25.0-35.0); MCHC 28.8 g/dL (31.0-37.0); MCV 90.3 fL (80.0-100.0); Mean Platelet Volume 8.5; Monocytes # (A) 1.2 k/uL (0-1.0); Monocytes % (A) 8 %; Neutrophils # (A) 12.4 k/uL (1.3-7.7); Neutrophils % (A) 87 %; Platelet Count 357 k/uL (150-450); RBC 3.09 m/uL (3.80-5.40); RDW 19.9 % (11.5-15.5); WBC 14.3 k/uL (3.8-10.6)
[2020-11-22] MEDS: PANTOPRAZOLE 40 MG TABLET PO SCH ×3 (07:34→17:04)
[2020-11-22] MEDS: SOTALOL 120 MG TAB PO SCH ×2 (07:35→21:24)
[2020-11-22] MEDS: MIDODRINE 5 MG TAB PO SCH ×3 (07:35→17:04)
[2020-11-22] MEDS: SODIUM BICARBONATE TAB 650 MG TAB PO SCH ×3 (07:35→21:24)
[2020-11-22] MEDS: ONDANSETRON 4 MG/2 ML VIAL IVP PRN (07:43)
--- NOTE | 2020-11-22 09:28 | P.PN ---
Subjective Progress Note Date: 11/22/20 Principal diagnosis: Ascites 70-year-old female who presented to the emergency department on Saturday with increased abdominal pain and distention. Patient was previously admitted and discharged the day before from [facility] in [place] for abdominal distention and abdominal pain. Patient had undergone paracentesis and cytology came back as adenocarcinoma, unknown origin at this time. She also underwent a colonoscopy during that admission SHOWED no GI bleed, diverticulosis, and internal hemorrhoids with no biopsies obtained. Today she underwent paracentesis and had an episode of hypotension following. She received albumin and pre-and post. She is somewhat confused today. She denies any abdominal pain currently, no nausea, and no vomiting. The drop in her hemoglobin from 10.7-8.0. She has a history of iron deficiency anemia and has required iron replacement in the past. She denies any current signs of GI bleed. He remains hypotensive, BMP is currently pending. Patient was scheduled for EGD today, however , she reports she actually had an EGD done on October 22 at [facility] which showed no active bleeding, no suspicion for malignancy, and mild erythema. Objective - Vital Signs Vital signs: Vital Signs Temp 98 F 11/22/20 04:41 Pulse 70 11/22/20 04:41 Resp 16 11/22/20 04:41 BP 95/50 11/22/20 05:40 Pulse Ox 98 11/22/20 04:41 Intake & Output 11/21/20 11/22/20 11/22/20 18:59 06:59 18:59 Intake Total 840 600 Output Total 100 75 Balance 740 525 Intake: Intake, IV Titration 600 600 Amount Sodium Chloride 0.45% 1, 600 600 000 ml @ 50 mls/hr IV . Q23H [facility] with Sodium Bicarb (1 Meq/ml) 150 ml Rx#:[id number] Oral 240 Output: Urine 100 75 Uretheral (Alcantar) 75 Other: Voiding Method Indwelling Catheter Indwelling Catheter Indwelling Catheter - Exam General appearance: The patient is alert, oriented, appears in no acute distress. HET: Head is normocephalic and atraumatic. Conjunctiva pink. Sclera anicteric. Neck: Supple without lymphadenopathy. Abdomen: Soft, lower abdominal and epigastric tenderness, obese, nondistended with bowel sounds. No guarding or rigidity. Extremities: Normal skin color and turgor. No pedal edema Skin: No rashes, no jaundice Neurological: No focal deficits. Alert and oriented 3. - Labs CBC & Chem 7: 11/22/20 03:35 11/22/20 03:35 Labs: Abnormal Lab Results - Last 24 Hours (Table) 11/21/20 11/22/20 Range/Units 04:46 03:35 WBC 16.2 H 14.3 H (3.8-10.6) k/uL RBC 3.09 L (3.80-5.40) m/uL Hgb 10.2 L 8.0 L D (11.4-16.0) gm/dL Hct 27.9 L (34.0-46.0) % MCHC 28.4 L 28.8 L (31.0-37.0) g/dL RDW 19.7 H 19.9 H (11.5-15.5) % Neutrophils # 13.9 H 12.4 H (1.3-7.7) k/uL Lymphocytes # 0.9 L 0.5 L (1.0-4.8) k/uL Monocytes # 1.2 H 1.2 H (0-1.0) k/uL Microbiology - Last 24 Hours (Table) 11/21/20 10:45 Gram Stain - Preliminary Ascites Fluid Body Fluid Culture - Preliminary Assessment and Plan (1) Ascites Narrative/Plan: 62-year-old female who presented to the emergency department today with complaints of abdominal pain and abdominal distention with increased weakness who was recently diagnosed with adenocarcinoma about 2 days ago and discharged from [facility] yesterday. She had a new diagnosis of ascites and under went a paracentesis with fluid cytology showing adenocarcinoma. She also had 3.8 L of fluid removed. 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 She had been noticing increased abdominal distention over the past 1-2 weeks. She has no previous history of liver disease, no previous alcohol abuse or family history of liver disease. LFTs show total bilirubin 0.4, alkaline phosphatase 72, AST 60, ALT 6, amylase 2.3, lipase less than 30. She also recently underwent a colonoscopy at [place] 3-4 days ago, which she states was normal. She had a CT of the abdomen and pelvis at [facility] showing a small pleural effusion bilaterally with mild bibasilar lung atelectasis. Large amount of ascites. At this time patient showing adenocarcinoma with unknown origin. Oncology is on consult. Fluid studies not consistent with portal hypertenison. Ascites is consistent with Malignant ascites. Current Visit: Yes Status: Acute Code(s): R18.8 - OTHER ASCITES SNOMED Code(s): 470185155 (2) Adenocarcinoma Narrative/Plan: Pathology following patient. Tumor markers have been ordered per oncology. Oncology recommend EGD. Current Visit: Yes Status: Acute Code(s): C80.1 - MALIGNANT (PRIMARY) NEOPLASM, UNSPECIFIED SNOMED Code(s): 157172331 (3) Hyponatremia Narrative/Plan: Nephrology on consult for hyponatremia, acute kidney injury Current Visit: Yes Status: Acute Code(s): E87.1 - HYPO-OSMOLALITY AND HYPONATREMIA SNOMED Code(s): 36237676 (4) Hypotension Current Visit: Yes Status: Acute Code(s): I95.9 - HYPOTENSION, UNSPECIFIED SNOMED Code(s): 42914638 Plan: 1. Continue symptomatic and supportive care 2. Low sodium diet fluid restriction 3. Nephrology on consult, appreciate their recommendations on diuretics 4. Paracentesis with fluid studies, cytology pending. Fluid studies not consistent with portal hypertension, ascites is consistent with malignancy. 5. Repeat CBC,BMP daily 6. Iron studies ordered 6. Discnontinue Rocephin 7. Oncology on consult 8. EGD canceled patient had recent EGD on October 22 at [facility] with no findings of GI bleed, concerns for neoplasm, with mild erythema per reports received by oncology Thank you for this consultation, we will sign off at this time. Dr. Scott Lama I agree with the dictator's note, documented as a scribe by Aide Amaro.
[2020-11-22] MEDS ORDERED: FUROSEMIDE 10 MG/ML 4 ML VIAL IV STA (09:47)
[2020-11-22] MEDS: SODIUM CHLORIDE 0.45% 1,000 ML with SODIUM BICARB (1 MEQ/ML) 150 ML IV SCH ×4 (10:23→23:57)
[2020-11-22 11:24] LABS: African American GFR (CKD) 18.5 (60.0-200.0); Anion Gap 15.8 mmol/L (4.00-12.00); BUN/Creat Ratio 11.03 Ratio (12.00-20.00); Calcium 7.8 mg/dL (8.7-10.3); Carbon Dioxide 16.2 mmol/L (21.6-31.8); Potassium 4.6 mmol/L (3.5-5.5)
[2020-11-22 13:30] LABS: Ferritin 554.9 ng/mL (10.0-291.0)
--- NOTE | 2020-11-22 14:17 | P.PN ---
Subjective Progress Note Date: 11/22/20 Principal diagnosis: New metastatic Cancer Unknown primary Renal Function continues to increase = 2.9. Awaiting Bilateral Breast Ultrasound Continues to be tearful and unable accept diagnosis at this time. Objective - Vital Signs Vital signs: Vital Signs Temp 97.7 F 11/22/20 11:10 Pulse 70 11/22/20 11:10 Resp 16 11/22/20 04:41 BP 83/60 11/22/20 11:10 Pulse Ox 97 11/22/20 11:10 Intake & Output 11/21/20 11/22/20 11/22/20 18:59 06:59 18:59 Intake Total 840 600 Output Total 100 75 Balance 740 525 Intake: Intake, IV Titration 600 600 Amount Sodium Chloride 0.45% 1, 600 600 000 ml @ 50 mls/hr IV . Q23H GUANAKITO with Sodium Bicarb (1 Meq/ml) 150 ml Rx#:[id number] Oral 240 Output: Urine 100 75 Uretheral (Alcantar) 75 Other: Voiding Method Indwelling Catheter Indwelling Catheter Indwelling Catheter - Exam Gen: No acute distress HEENT: Conjunctival pallor. Neck: Supple Lungs: No respiratory distress Heart: Normal rate Abdomen: Distended MSK: No obvious deformities Neuro: Alert and oriented 3 Psych: Appropriate affect. Tearful about new cancer finding. Skin: No jaundice - Labs CBC & Chem 7: 11/22/20 03:35 11/22/20 03:35 Labs: Abnormal Lab Results - Last 24 Hours (Table) 11/22/20 11/22/20 11/22/20 Range/Units 03:35 03:35 03:35 WBC 14.3 H (3.8-10.6) k/uL RBC 3.09 L (3.80-5.40) m/uL Hgb 8.0 L D (11.4-16.0) gm/dL Hct 27.9 L (34.0-46.0) % MCHC 28.8 L (31.0-37.0) g/dL RDW 19.9 H (11.5-15.5) % Neutrophils # 12.4 H (1.3-7.7) k/uL Lymphocytes # 0.5 L (1.0-4.8) k/uL Monocytes # 1.2 H (0-1.0) k/uL Sodium 129 L (135-145) mmol/L Carbon Dioxide 16.2 L (21.6-31.8) mmol/L Anion Gap 15.80 H (4.00-12.00) mmol/L BUN 32.0 H (9.0-27.0) mg/dL Creatinine 2.9 H (0.6-1.5) mg/dL Est GFR (CKD-EPI)AfAm 18.5 L (60.0-200.0) Est GFR (CKD-EPI)NonAf 16.0 L (60.0-200.0) BUN/Creatinine Ratio 11.03 L (12.00-20.00) Ratio Calcium 7.8 L (8.7-10.3) mg/dL Ferritin 554.9 H (10.0-291.0) ng/mL Microbiology - Last 24 Hours (Table) 11/21/20 10:45 Gram Stain - Preliminary Ascites Fluid Body Fluid Culture - Preliminary Assessment and Plan Plan: Assessment and Recommendations: Acute Renal Insufficiency: - WOrsening, creatinine >2 today - Nephrology following Presentation for Chest Pain: - Unknown etiology, COVID Negative, Mild effusions bilateral and bibasilar atelectasis New Onset Abdominal Ascites: - Status POst Paracentesis on 11/11/20 at [facility]: - 300cc removed again on 08/15/20 - Cytology Positive for Adenocarcinoma, Origin suspicious for upper GI or NURSE CASE MANAGER/Breast Origin, however remains unknown at this time - Hx: iron deficiency anemia, Bariatric bypass surgery and inability to adequately scope over the years with chronic Iron deficiency. - Full breast exam and bilateral axillary without palpable or clinical findings to suggest malignancy, CT did not reveal abnormality. - AFP <2.7 (WNL), CA19-9 15 (WNL), CEA 6.3 (mild elevated) Chronic Iron Deficiency thought to be related to AVM/GI Blood loss and Absorbption secondary to past history - EGD 10/22/20: No evidence of bleeding or suspicion for malignancy. Report does mention erythema - Colonoscopy on 11/16/20: no evidence of bleeding, Left sided diverticulosis, internal hemorrhoids. No mass or definitive primary malignancy - She does have history of erosive esophagitis and ETOH Component B12 Deficiency: - Jonathan and Y history and malabsorption - Recheck B12 and FOlate and supplement prn Sick Sinus Syndrome/Paroxysmal Atrial FIbrillation: - Status Post Pacemaker Placement Recent: 11/04/20 - Continues on Xarelto - Cardiology to follow is recommended - Echocardiogram on 11/12/20: 55-60% EF Right Ventricle a 4.6x5.0 cm echodensity with a fluid filled cyst-like structure noted in the subcostal view (Dedicated imaging advised), not seen on 12/07/20 study Hyponatremia: - Secondary to third space - Nephrology to consult Depression/Anxiety: -Celexa Generalized Weakness: - PT/OT Thank you for allowing us to participate in the care of your patient will follow along with you Plan: - Patient has overall worsened through the weekend, renal function decreased and third space worsening. - Status Post Parenthesis with repeat cytology on 11/22/20 4000ml - Nephrology to continue assist with renal function - worsening - Awaiting Breast Ultrasound - Will follow-up with Dr. Cr after discharge - Discussed with GI and EGD was performed in October of this year Physician attest: I have completed the full history and physical and agree with above dictation, dictated as a scribe
--- NOTE | 2020-11-22 14:24 | PN ---
PROGRESS NOTE Patient is seen for followup for acute kidney injury, mostly associated with hypotension. The patient's urine output has been on the lower side. She is currently maintained on IV fluids. Blood pressure remains low. The patient was started on IV bicarb drip yesterday. She also had paracentesis and 4 L of fluid was removed yesterday. The patient did get albumin post paracentesis. This morning, the patient is comfortable. She breaks out in tears occasionally while talking. Patient does have a Alcantar catheter. There are no nephrotoxic agents on board. Patient is also maintained on midodrine. One time dose of Lasix was given yesterday with no improvement in urine output. PHYSICAL EXAMINATION: On examination today, blood pressure this morning was 86/50. The patient is afebrile. Heart rate 70 per minute. Examination of the heart S1, S2. Examination of the lungs, bilateral breath sounds are heard. ABDOMEN: Soft, distended, nontender. Exam of lower extremities shows no significant edema. MANAGER ACCOUNT MANAGEMENT exam grossly intact. LAB: Show hemoglobin 8.0, sodium 129, potassium 4.6, CO2 is 16.2, BUN 32, serum creatinine 2.9 mg/dL. ASSESSMENT: 1. Acute kidney injury, acute tubular necrosis, currently oliguric with no improvement in renal function with IV fluids. Blood pressure remains on the lower side. Patient is maintained on midodrine. She is not on any nephrotoxic medications and ultrasound of the kidneys was unremarkable. The patient did have paracentesis yesterday, which would help with any underlying compartment syndrome at present. The patient may need to be started on pressors as her blood pressure has not yet improved and in the meantime, I will increase the IV fluids today. 2. 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 3. Metabolic acidosis secondary to acute kidney injury. 4. Hypotension, not improved with midodrine consider adding dopamine. Check random cortisol level if not checked. 5. Chronic atrial fibrillation maintained on Xarelto for anticoagulation rate is controlled. 6. Hyponatremia, currently improved. The patient did have evidence of edema and was hypovolemic. However that was mostly associated with interstitial edema and 3rd spacing associated with poor albumin. She may be intravascularly volume depleted. PLAN: Increase bicarb drip to 100 mL an hour. Check random cortisol level and continue with midodrine. Overall prognosis is guarded. Avoid nephrotoxic medications. I will continue with current IV fluids and repeat labs in a.m. ASIM / SRIDHARN: [id number] /
[2020-11-22 15:19] LABS: % Iron Saturation 9.92 (12.00-45.00)
[2020-11-22] MEDS: RIVAROXABAN 15 MG TAB PO SCH (17:04)
--- NOTE | 2020-11-22 19:51 | P.PN ---
Progress Note - Text Progress Note Date: 11/22/20 Chief Complaint: Weak and tired History of presenting complaint: This is a very pleasant 70-year-old patient who follows with Dr. Kenia Daniel. Chronic stable medical conditions include osteoarthritis, hypertension, hyperlipidemia, depression, insomnia. Patient was 2 days ago discharged from [facility]. Patient had a paracentesis carried out 3800 mL was removed. Cytology came back positive for adenocarcinoma. Follow-up was in progress. Patient has followed up with Dr. Dominguez in the past for iron deficiency and received IV iron. At home patient had been getting progressively worse. Barely able to walk. Does have a walker. . Very poor appetite. Constipation. Blood work from other hospitals reviewed. Also swelling in the lower extremity. No fever no chills. No cough. Abdomen some bit more distended. No pain Admitted with acute on chronic medical debility, medical asthenia, hyponatremia, secondary ascites, anorexia. Put on fluid restriction. Lasix. Abdominal ultrasound showed small ascites. Also acute kidney injury felt to be ATN. Consultation made to oncology, nephrology. Urine has been poor.4 L of straw- colored paracentesis done . Patient renal function worsening. Lasix discontinued. Given IV fluids. Per GI patient had EGD on October 22 at [facility]: Unremarkable Today: Patient continues to feel weak and tired. Blood pressures running low. Put on IV fluids. Lasix has been held. Some abdominal pain. at the bedside. Patient somewhat anxious and tearful about the new diagnosis. Review of systems: Was done for constitutional, cardiovascular, GI, pulmonary. relevant finding as above Active Medications Acetaminophen (Acetaminophen Tab 500 Mg Tab) 500 mg PO Q6HR PRN PRN Reason: Fever and/ or Pain Last Admin: 11/19/20 08:50 Dose: 500 mg Documented by: Atorvastatin Calcium (Atorvastatin 40 Mg Tab) 40 mg PO HS GUANAKITO Last Admin: 11/21/20 20:45 Dose: 40 mg Documented by: Escitalopram Oxalate (Escitalopram 10 Mg Tab) 10 mg PO DAILY PRN PRN Reason: depression Hydromorphone HCl (Hydromorphone 0.5 Mg/0.5 Ml Syringe) 0.5 mg IVP Q4HR PRN PRN Reason: Pain Last Admin: 11/22/20 12:07 Dose: 0.5 mg Documented by: Ceftriaxone Sodium 1 gm/ (Sodium Chloride) 50 mls @ 100 mls/hr IVPB Q24HR [facility] Last Admin: 11/22/20 07:35 Dose: 100 mls/hr Documented by: Sodium Bicarbonate 150 ml/ (Sodium Chloride) 1,150 mls @ 100 mls/hr IV .[id number] [facility] Last Admin: 11/22/20 10:23 Dose: 100 mls/hr Documented by: Midodrine (Midodrine 5 Mg Tab) 10 mg PO AC-TID [facility] Last Admin: 11/22/20 17:04 Dose: 10 mg Documented by: Naloxone HCl (Naloxone 0.4 Mg/Ml 1 Ml Vial) 0.2 mg IV Q2M PRN PRN Reason: Opioid Reversal Ondansetron HCl (Ondansetron 4 Mg/2 Ml Vial) 4 mg IVP Q8HR PRN PRN Reason: Nausea And Vomiting Last Admin: 11/22/20 07:43 Dose: 4 mg Documented by: Pantoprazole Sodium (Pantoprazole 40 Mg Tablet) 40 mg PO AC-BID [facility] Last Admin: 11/22/20 17:04 Dose: 40 mg Documented by: Rivaroxaban (Rivaroxaban 15 Mg Tab) 15 mg PO W/SUPPER [facility]; Protocol Last Admin: 11/22/20 17:04 Dose: 15 mg Documented by: Simethicone (Simethicone 80 Mg Chewable) 80 mg PO Q4H PRN PRN Reason: discomfort Sodium Bicarbonate (Sodium Bicarbonate Tab 650 Mg Tab) 650 mg PO TID [facility] Last Admin: 11/22/20 17:04 Dose: 650 mg Documented by: Sotalol HCl (Sotalol 120 Mg Tab) 180 mg PO BID [facility] Last Admin: 11/22/20 07:35 Dose: 180 mg Documented by: Past medical history to include: Atrial fibrillation, hypertension, hyperlipidemia, iron deficiency anemia, gastric bypass surgery, just diagnosed with adenocarcinoma in the peritoneal fluid primary unknown, osteoarthritis Social history: Patient quit smoking in 1994. Sometimes has wine. . Walker. Physical examination: VITAL SIGNS: 97.7, 70, 16, 83/60, 97% room air GENERAL: Laying in bed, tired EYES: Pupils equal. Conjunctiva pale. NECK: JVD unable to assess; masses not palpable. HEART: Irregular heart sounds; edema present. LUNGS: Respiratory rate increased decreased breath sounds. ABDOMEN: Soft, slight distention, mild tenderness, liver spleen not palpable, no masses palpable. PSYCH: [Alert and oriented x3; mood and affect a tearful MUSCULAR skeletal: Evidence of OA, NEUROLOGICAL: Cranial nerves grossly intact; no facial asymmetry, generally decreased power and sensation grossly intact. INVESTIGATIONS, reviewed in the clinical context: November 22: WBC 14.3 hemoglobin 8 platelets 357 sodium 129 potassium 4.6 creatinine 2.9I and 12 TIBC 121% saturation 9.9 to November 21: WBC 16.2 hemoglobin 10.2 sodium 125 potassium 5.3 BUN 25 creatinine 2.40 Ultrasound axilla and right to left: No obvious lymph node detected Ultrasound kidney bladder: Mild ascites. No evidence of medical renal disease reported November 19: WBC 10.8 hemoglobin 9.7 sodium 124 potassium 5.[address] brain: Nonspecific Transvaginal ultrasound: Nonspecific 2-D echocardiogram: EF 60-65% CA 15-3 antigen 61.7. CA 27-29 131.2. CA-125 antigen to 90. Vitamin B12 2362 WBC 11.4 hemoglobin 11.1 platelets 434 sodium 125 potassium 5 BUN 12 creatinine 1.18 ProBNP 1180 albumin 2.3 UA positive for blood, leukoesterase, WBC,'s, squamous epithelial cells Coronavirus [PCR]: Not detected EKG tracing personally reviewed by me-atrial paced rhythm T-wave abnormality Chest x-ray film personally reviewed by [id number] pleural effusion Abdominal ultrasound: Small amount of ascites Investigations from the outside hospital: Hemoglobin 10.8 platelets 332 hepatitis screen for A, B, and C negative creatinine 0.79 CEA: 63 mL and 19-9:15 IgM and IgG: Low Antinuclear antibody, echocardiogram antibody, smooth muscle antibody all negative Assessment and plan: -Acute on chronic medical debility from adenocarcinoma/malignancy the primary is not known, progressive. poor appetite and losing weight -Acute on chronic gait dysfunction, from increasing medical asthenia-worsening Finding difficult to walk, was using a walker before that -Adenocarcinoma, diagnosed from peritoneal fluid last week, primary unknown Consultation to oncology. Workup in place -Secondary ascites likely from peritoneal seeding from adenocarcinoma. Paracentesis-4 L of stroke: Fluid removed -Hyponatremia, slow to respond Fluid restriction to 15 00mL a. Low-salt diet. -Depression not otherwise specified Continue Lexapro -Persistent atrial fibrillation, with a pacemaker On sotalol and xarelto -GERD On omeprazole -Hyperlipidemia On Lipitor -Anemia normocytic of chronic disease including that of underlying malignancy Follow H&H -Chronic insomnia from multiple medical problems *Melatonin -Acute kidney injury, possible ATN-worsening Patient received Lasix. Be followed by nephrology. Looks like intravascular depletion. Getting IV fluids -Edema likely from hypoalbuminemia, -Mild protein calorie malnutrition, from decreased oral intake -Iron deficiency anemia Continue with IV fluids. Follow renal function. Prognosis guarded. Care was discussed with the patient and the at the bedside.
[2020-11-22] MEDS: ATORVASTATIN 40 MG TAB PO SCH (21:24)
[2020-11-23] MEDS: HYDROmorphone 0.5 MG/0.5 ML SYRINGE IVP PRN ×3 (03:10→22:05)
[2020-11-23] MEDS: PANTOPRAZOLE 40 MG TABLET PO SCH ×2 (08:39→17:39)
[2020-11-23] MEDS: SODIUM BICARBONATE TAB 650 MG TAB PO SCH ×3 (08:39→20:55)
[2020-11-23] MEDS: MIDODRINE 5 MG TAB PO SCH ×3 (08:40→17:39)
[2020-11-23] MEDS: SOTALOL 120 MG TAB PO SCH ×2 (08:40→20:55)
[2020-11-23] MEDS: ONDANSETRON 4 MG/2 ML VIAL IVP PRN ×2 (08:57→22:13)
[2020-11-23 10:26] LABS: African American GFR (CKD) 21 (>60 ml/min/1.73 sqM); Anion Gap 9 mmol/L; Blood Urea Nitrogen 35 mg/dL (7-17); Calcium 7.3 mg/dL (8.4-10.2); Carbon Dioxide 21 mmol/L (22-30); Chloride 97 mmol/L (98-107); Glucose 80 mg/dL (74-99); Non-African American GFR(CKD) 18 (>60 ml/min/1.73 sqM); Potassium 4.5 mmol/L (3.5-5.1); Sodium 127 mmol/L (137-145)
[2020-11-23 10:30] LABS: Anisocytosis Moderate; HCT 31.7 % (34.0-46.0); Hypochromasia Marked; MCH 27.2 pg (25.0-35.0); MCHC 30.3 g/dL (31.0-37.0); MCV 89.8 fL (80.0-100.0); Mean Platelet Volume 8.7; Poikilocytosis Slight; RBC 3.53 m/uL (3.80-5.40); RDW 20.6 % (11.5-15.5); WBC 14.6 k/uL (3.8-10.6)
[2020-11-23 10:37] LABS: HGB 9.6 gm/dL (11.4-16.0); Platelet Count 178 k/uL (150-450)
[2020-11-23] MEDS: SODIUM CHLORIDE 0.45% 1,000 ML with SODIUM BICARB (1 MEQ/ML) 150 ML IV SCH ×2 (11:29)
--- NOTE | 2020-11-23 13:41 | XR ---
EXAMINATION TYPE: XR chest 1V DATE OF EXAM: 11/23/2020 COMPARISON: Chest x-ray dated 11/18/2020 HISTORY: Congestive heart failure, pain TECHNIQUE: Single frontal view of the chest is obtained. FINDINGS: There is persistent obscured left hemidiaphragm, there is blunting the left costophrenic a ngle. Patient is rotated. There is no evident pneumothorax. Pacemaker stable. Cardiac mediastinal jv houette is stable. Aorta is dense. Arthropathy noted within the shoulders. I riding shoulders may be indicative of chronic rotator cuff tears. IMPRESSION: Left lower lobe atelectasis and associated effusion versus pneumonia or edema, findings similar to prior exam.
--- NOTE | 2020-11-23 13:48 | PN ---
PROGRESS NOTE Patient is seen for followup for acute kidney injury. Her renal function had been worsening. However, today it is slightly better with creatinine down to 2.59 from 2.9 yesterday. The patient has an indwelling Alcantar catheter. Her urine output documented for 24 hours slightly higher at 300 although it remains low. The patient has been tearful regarding her diagnosis. Her blood pressure remains on the lower side. She is maintained on midodrine, which was recently increased. Patient is also maintained on bicarb drip, currently running at 100 mL an hour. I have discussed with her regarding possible need for dialysis if renal function continues to worsen, and she is agreeable in case that is needed. PHYSICAL EXAMINATION: On examination today, blood pressure was 94/61, heart rate 70 per minute. Patient is afebrile. Examination of the heart S1, S2. Examination of the lungs, decreased breath sounds at the bases. Abdomen is soft, nontender. Examination of the lower extremities shows no significant edema. PUBLISHING DIRECTOR exam grossly intact. LAB: Show hemoglobin 9.6, sodium 127, potassium 4.5, chloride 97, BUN 35, serum creatinine 2.59. ASSESSMENT: 1. Acute kidney injury mostly acute tubular necrosis associated with hypotension. UA does show protein and blood. However, renal function is slightly better today. I had advised the patient that she may need to start renal replacement therapy if her renal function does not improve. She is agreeable to it in case we need it consideration for kidney biopsy down the road if no improvement in renal function. Ultrasound did not show any obstruction. 2. Hyponatremia, possibly related to SIADH. I will check urine osmolality. Consider Samsca. 3. New diagnosis of cancer with ascites, primary is unknown. There was evidence of adenocarcinoma. 4. Metabolic acidosis currently maintained on IV bicarb. PLAN: Continue with IV bicarb. Check urine osmolality. Repeat labs in a.m. Avoid hypotension. Continue with midodrine. Consider adding dopamine. Check chest x-ray. MMODL / IJN: [id number] /
--- NOTE | 2020-11-23 14:12 | P.PN ---
Progress Note - Text Progress Note Date: 11/23/20 Chief Complaint: Weak and tired History of presenting complaint: This is a very pleasant 70-year-old patient who follows with Dr. Kenia Daniel. Chronic stable medical conditions include osteoarthritis, hypertension, hyperlipidemia, depression, insomnia. Patient was 2 days ago discharged from [facility]. Patient had a paracentesis carried out 3800 mL was removed. Cytology came back positive for adenocarcinoma. Follow-up was in progress. Patient has followed up with Dr. Dominguez in the past for iron deficiency and received IV iron. At home patient had been getting progressively worse. Barely able to walk. Does have a walker. . Very poor appetite. Constipation. Blood work from other hospitals reviewed. Also swelling in the lower extremity. No fever no chills. No cough. Abdomen some bit more distended. No pain Admitted with acute on chronic medical debility, medical asthenia, hyponatremia, secondary ascites, anorexia. Put on fluid restriction. Lasix. Abdominal ultrasound showed small ascites. Also acute kidney injury felt to be ATN. Consultation made to oncology, nephrology. Urine has been poor.4 L of straw- colored paracentesis done . Patient renal function worsening. Lasix discontinued. Given IV fluids. Per GI patient had EGD on October [address] [facility]: Unremarkable. Poor appetite. has been visiting. They understand guarded prognosis. Today: Weak and tired. He not able to eat. Blood pressure running low. I ordered fluid boluses. Earlier in the day I spoke to Dr. Henderson from nephrology. Because of low blood pressure dialysis not a good option. Also spoke to Dr. Gonzalez from oncology. Still haven't been able to find a primary. at the bedside. Having epigastric some lower sternal pain. Review of systems: Was done for constitutional, cardiovascular, GI, pulmonary. relevant finding as above Active Medications Acetaminophen (Acetaminophen Tab 500 Mg Tab) 500 mg PO Q6HR PRN PRN Reason: Fever and/ or Pain Last Admin: 11/19/20 08:50 Dose: 500 mg Documented by: Atorvastatin Calcium (Atorvastatin 40 Mg Tab) 40 mg PO HS GUANAKITO Last Admin: 11/22/20 21:24 Dose: 40 mg Documented by: Escitalopram Oxalate (Escitalopram 10 Mg Tab) 10 mg PO DAILY PRN PRN Reason: depression Last Admin: 11/23/20 08:58 Dose: 10 mg Documented by: Hydromorphone HCl (Hydromorphone 0.5 Mg/0.5 Ml Syringe) 0.5 mg IVP Q4HR PRN PRN Reason: Pain Last Admin: 11/23/20 13:44 Dose: 0.5 mg Documented by: Sodium Bicarbonate 150 ml/ (Sodium Chloride) 1,150 mls @ 100 mls/hr IV .[id number] [facility] Last Admin: 11/23/20 11:29 Dose: 100 mls/hr Documented by: Lactated Ringer's (Lactated Ringers) 250 mls @ 999 mls/hr IV .Q16M GUANAKITO Lactated Ringer's (Lactated Ringers) 250 mls @ 999 mls/hr IV .Q16M GUANAKITO Midodrine (Midodrine 5 Mg Tab) 10 mg PO AC-TID [facility] Last Admin: 11/23/20 11:47 Dose: 10 mg Documented by: Naloxone HCl (Naloxone 0.4 Mg/Ml 1 Ml Vial) 0.2 mg IV Q2M PRN PRN Reason: Opioid Reversal Ondansetron HCl (Ondansetron 4 Mg/2 Ml Vial) 4 mg IVP Q8HR PRN PRN Reason: Nausea And Vomiting Last Admin: 11/23/20 08:57 Dose: 4 mg Documented by: Pantoprazole Sodium (Pantoprazole 40 Mg Tablet) 40 mg PO AC-BID [facility] Last Admin: 11/23/20 08:39 Dose: 40 mg Documented by: Rivaroxaban (Rivaroxaban 15 Mg Tab) 15 mg PO W/SUPPER [facility]; Protocol Last Admin: 11/22/20 17:04 Dose: 15 mg Documented by: Simethicone (Simethicone 80 Mg Chewable) 80 mg PO Q4H PRN PRN Reason: discomfort Last Admin: 11/23/20 13:41 Dose: 80 mg Documented by: Sodium Bicarbonate (Sodium Bicarbonate Tab 650 Mg Tab) 650 mg PO TID [facility] Last Admin: 11/23/20 08:39 Dose: 650 mg Documented by: Sotalol HCl (Sotalol 120 Mg Tab) 180 mg PO BID [facility] Last Admin: 11/23/20 08:40 Dose: 180 mg Documented by: Past medical history to include: Atrial fibrillation, hypertension, hyperlipidemia, iron deficiency anemia, gastric bypass surgery, just diagnosed with adenocarcinoma in the peritoneal fluid primary unknown, osteoarthritis Social history: Patient quit smoking in 1994. Sometimes has wine. . Walker. Physical examination: VITAL SIGNS: 97.5, 78, 17, 73 x 56, 100% on 5 L GENERAL: Laying in bed, tired EYES: Pupils equal. Conjunctiva pale. NECK: JVD unable to assess; masses not palpable. HEART: Irregular heart sounds; edema present. LUNGS: Respiratory rate increased decreased breath sounds. ABDOMEN: Soft, slight distention, tenderness, liver spleen not palpable, no masses palpable. PSYCH: [Alert and oriented x3; mood and affect, feeling low MUSCULAR skeletal: Evidence of OA, NEUROLOGICAL: Cranial nerves grossly intact; no facial asymmetry, generally decreased power and sensation grossly intact. INVESTIGATIONS, reviewed in the clinical context: November 23: WBC 14.6 hemoglobin 9.6 sodium 127 potassium 4.5 BUN 35 creatinine 2.59 November 22: WBC 14.3 hemoglobin 8 platelets 357 sodium 129 potassium 4.6 creatinine 2.9I and 12 TIBC 121% saturation 9.9 to November 21: WBC 16.2 hemoglobin 10.2 sodium 125 potassium 5.3 BUN 25 creatinine 2.40 Ultrasound axilla and right to left: No obvious lymph node detected Ultrasound kidney bladder: Mild ascites. No evidence of medical renal disease reported November 19: WBC 10.8 hemoglobin 9.7 sodium 124 potassium 5.[address] brain: Nonspecific Transvaginal ultrasound: Nonspecific 2-D echocardiogram: EF 60-65% CA 15-3 antigen 61.7. CA 27-29 131.2. CA-125 antigen to 90. Vitamin B12 2362 WBC 11.4 hemoglobin 11.1 platelets 434 sodium 125 potassium 5 BUN 12 creatinine 1.18 ProBNP 1180 albumin 2.3 UA positive for blood, leukoesterase, WBC,'s, squamous epithelial cells Coronavirus [PCR]: Not detected EKG tracing personally reviewed by me-atrial paced rhythm T-wave abnormality Chest x-ray film personally reviewed by [id number] pleural effusion Abdominal ultrasound: Small amount of ascites Investigations from the outside hospital: Hemoglobin 10.8 platelets 332 hepatitis screen for A, B, and C negative creatinine 0.79 CEA: 63 mL and 19-9:15 IgM and IgG: Low Antinuclear antibody, echocardiogram antibody, smooth muscle antibody all negative Assessment and plan: -Acute on chronic medical debility from adenocarcinoma/malignancy the primary is not known, progressive. 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 Workup in place -Secondary ascites likely from peritoneal seeding from adenocarcinoma. Paracentesis-4 L -Hyponatremia, slow to respond Fluid restriction to 15 00mL a. Low-salt diet. -Depression not otherwise specified Continue Lexapro -Persistent atrial fibrillation, with a pacemaker On sotalol and xarelto -GERD On omeprazole -Hyperlipidemia On Lipitor -Anemia normocytic of chronic disease including that of underlying malignancy Follow H&H -Chronic insomnia from multiple medical problems *Melatonin -Acute kidney injury, possible slow to respond Patient received Lasix. Be followed by nephrology. Looks like intravascular depletion. Getting IV fluids. Lasix discontinued -Edema likely from hypoalbuminemia, -Mild protein calorie malnutrition, from decreased oral intake -Iron deficiency anemia -Symptomatic hypotension from volume contraction Fluid boluses being given. Fluids at 1 25 mL an hour. Fluid bolus. IV fluids at 1 25 mL an hour. EKG. Discussed with the patient. Prognosis guarded Advanced care planning: Care was discussed with the patient has been at the bedside. Dentist and oral prognosis guarded. Cor status was discussed. Patient does not want any intubation or shocks. Does not want to be vegetative. She has opted to become DO NOT RESUSCITATE. With understanding that in the meantime we will do a breast to prevent after getting to that point. Questions answered. If patient not able to take decisions and the will be making decisions. About 20 minutes was spent for this.
[2020-11-23] MEDS: LACTATED RINGERS 250 ML IV SCH ×10 (15:17→15:49)
--- NOTE | 2020-11-23 15:52 | P.GSCN ---
History of Present Illness Consult date: 11/23/20 History of present illness: CHIEF COMPLAINT: Abdominal pain HISTORY OF PRESENT ILLNESS: This is a 70-year-old female with a known history of gastric bypass, appendectomy and a little hernia repair. Patient also has pacemaker placement. She has a medical history of atrophic relation, hyperlipidemia and hypertension. Patient presented to the hospital with abdominal pain with abdominal distention. She had recently been at [facility] for abdominal distention and abdominal pain with abdominal ascites and had undergone a paracentesis and cytology came back as adenocarcinoma with unknown origin. Patient has required paracentesis during this admission. She is undergoing oncology workup. Surgical service was consulted for possible Dobbhoff placement for nutrition support. Patient has had poor oral intake and no appetite. She currently reports her pain is controlled. She has been passing gas. It has been a few days since her last bowel movement. Patient is also followed by nephrology regarding the hyponatremia and acute renal failure. PAST MEDICAL HISTORY: See list. PAST SURGICAL HISTORY: See list. MEDICATIONS: See list. ALLERGIES: See list. SOCIAL HISTORY: No illicit drug use. REVIEW OF SYSTEMS: CONSTITUTIONAL: Denies fever or chills. HEENT: Denies blurred vision, vision changes, or eye pain. Denies hemoptysis CARDIOVASCULAR: Denies chest pain or pressure. RESPIRATORY: No shortness of breath. GASTROINTESTINAL: See HPI for pertinent findings HEMATOLOGIC: Denies bleeding disorders. GENITOURINARY: Denies any blood in urine or increased urinary frequency. SKIN: Denies pruitis. Denies rash. PHYSICAL EXAM: VITAL SIGNS: Reviewed GENERAL: Well-developed in no acute distress. HEENT: No sclera icterus. Extraocular movements grossly intact. Moist buccal mucosa. Head is atraumatic, normocephalic. No nasal drainage. ABDOMEN: Soft. Nondistended nontender NEUROLOGIC: Alert and oriented. Cranial nerves II through XII grossly intact. LABORATORY DATA: WBC 14.6 hemoglobin 9.6 platelets 178 sodium 127 creatinine 2.59 CA-15-3 61.7 CA 27-29 131.2 CA 125 290 Albumin 2.1 IMAGING: ASSESSMENT: 1. Adenocarcinoma diagnosed from peritoneal fluid. Primary unknown 2. Severe protein calorie malnutrition 3. History of gastric bypass surgery PLAN: -Due to patient's previous gastric bypass surgery she has no stomach reservoir therefore the surgeon is unable to place a Dobbhoff -Continue supportive care and oncology workup Thank you for this consultation Physician Dial Lathe Operator note has been reviewed by physician. Signing provider agrees with the documented findings, assessment, and plan of care. Past Medical History Past Medical History: Atrial Fibrillation, Cancer, Hyperlipidemia, Hypertension Additional Past Medical History / Comment(s): anenia History of Any Multi-Drug Resistant Organisms: None Reported Past Surgical History: Appendectomy, Hernia Repair, Pacemaker, Tonsillectomy Additional Past Surgical History / Comment(s): Paracentis 11/28, gastic bypass, l oop recorder placement Past Anesthesia/Blood Transfusion Reactions: No Reported Reaction Type of Cardiac Device: Permanent Pacemaker Device Placement Date:: 11/04/2020 Past Psychological History: Depression Smoking Status: Former smoker Past Alcohol Use History: Occasional - Past Family History Father Family Medical History: CVA/TIA, Hypertension Additional Family Medical History / Comment(s): Father from stroke Mother Additional Family Medical History / Comment(s): Mother from alzheimer's disease Medications and Allergies Home Medications Medication Instructions Recorded Confirmed Type traZODone HCL [TraZODone HCl] 50 - 150 mg PO TID PRN 10/11/20 11/18/20 History Atorvastatin [Lipitor] 40 mg PO HS 11/18/20 11/18/20 History Escitalopram [Lexapro] 10 mg PO DAILY PRN 11/18/20 11/18/20 History Omeprazole 40 mg PO DAILY 11/18/20 11/18/20 History Rivaroxaban [Xarelto] 15 mg PO W/SUPPER 11/18/20 11/18/20 History Simethicone 80 mg PO Q4H PRN 11/18/20 11/18/20 History Sotalol [Betapace] 180 mg PO BID 11/18/20 11/18/20 History Sucralfate [Carafate] 1 gm PO Q8H 11/18/20 11/18/20 History tiZANidine HCL [Zanaflex] 2 mg PO TID PRN 11/18/20 11/18/20 History Allergies Allergy/AdvReac Type Severity Reaction Status Date / Time isosorbide [From Ismo] Allergy Severe Anaphylaxis Verified 11/18/20 09:40 hydralazine Allergy Rash/Hives Verified 11/18/20 09:40 Surgical - Exam Vital Signs Temp Pulse Resp BP Pulse Ox 98.2 F 68 18 112/60 98 11/18/20 08:20 11/18/20 08:20 11/18/20 08:20 11/18/20 08:20 11/18/20 08:20 Results - Labs 11/23/20 09:50 11/23/20 09:50 Abnormal Lab Results - Last 24 Hours (Table) 11/23/20 11/23/20 Range/Units 09:50 09:50 WBC 14.6 H (3.8-10.6) k/uL RBC 3.53 L (3.80-5.40) m/uL Hgb 9.6 L D (11.4-16.0) gm/dL Hct 31.7 L (34.0-46.0) % MCHC 30.3 L (31.0-37.0) g/dL RDW 20.6 H (11.5-15.5) % Sodium 127 L (137-145) mmol/L Chloride 97 L (98-107) mmol/L Carbon Dioxide 21 L (22-30) mmol/L BUN 35 H (7-17) mg/dL Creatinine 2.59 H (0.52-1.04) mg/dL Calcium 7.3 L (8.4-10.2) mg/dL Microbiology - Last 24 Hours (Table) 11/21/20 10:45 Gram Stain - Preliminary Ascites Fluid Body Fluid Culture - Preliminary Diabetes panel 11/23/20 Range/Units 09:50 Sodium 127 L (137-145) mmol/L Potassium 4.5 (3.5-5.1) mmol/L Chloride 97 L (98-107) mmol/L Carbon Dioxide 21 L (22-30) mmol/L BUN 35 H (7-17) mg/dL Creatinine 2.59 H (0.52-1.04) mg/dL Glucose 80 (74-99) mg/dL Calcium 7.3 L (8.4-10.2) mg/dL Calcium panel 11/23/20 Range/Units 09:50 Calcium 7.3 L (8.4-10.2) mg/dL Pituitary panel 11/23/20 Range/Units 09:50 Sodium 127 L (137-145) mmol/L Potassium 4.5 (3.5-5.1) mmol/L Chloride 97 L (98-107) mmol/L Carbon Dioxide 21 L (22-30) mmol/L BUN 35 H (7-17) mg/dL Creatinine 2.59 H (0.52-1.04) mg/dL Glucose 80 (74-99) mg/dL Calcium 7.3 L (8.4-10.2) mg/dL Adrenal panel 11/23/20 Range/Units 09:50 Sodium 127 L (137-145) mmol/L Potassium 4.5 (3.5-5.1) mmol/L Chloride 97 L (98-107) mmol/L Carbon Dioxide 21 L (22-30) mmol/L BUN 35 H (7-17) mg/dL Creatinine 2.59 H (0.52-1.04) mg/dL Glucose 80 (74-99) mg/dL Calcium 7.3 L (8.4-10.2) mg/dL
[2020-11-23] MEDS: RIVAROXABAN 15 MG TAB PO SCH (17:39)
--- NOTE | 2020-11-23 19:00 | P.PN ---
Subjective Progress Note Date: 11/23/20 Principal diagnosis: New metastatic Cancer Unknown primary Spoke with breast imaging and they are unfortunetly unable to proceed with inpatient mammogram and/or ultrasound of breast. Stating inpatient mammo is not able to be done and without a noted area of concern an ultrasound will not allow for significant use of a diagnostic without the adjunct mammogram imaging. Pathology/Cytology is still pending Objective - Vital Signs Vital signs: Vital Signs Temp 97.5 F L 11/23/20 11:58 Pulse 78 11/23/20 11:58 Resp 17 11/23/20 11:58 BP 73/56 11/23/20 11:58 Pulse Ox 100 11/23/20 11:58 Intake & Output 11/22/20 11/23/20 11/23/20 18:59 06:59 18:59 Intake Total 1150 100 Output Total 100 200 50 Balance 1050 -100 -50 Intake: Intake, IV Titration 1150 Amount Sodium Chloride 0.45% 1, 1150 000 ml @ 100 mls/hr IV . [id number] GUANAKITO with Sodium Bicarb (1 Meq/ml) 150 ml Rx#:[id number] Oral 100 Output: Urine 100 200 50 Uretheral (Alcantar) 100 Other: Voiding Method Indwelling Catheter Indwelling Catheter Indwelling Catheter - Exam Gen: No acute distress HEENT: Conjunctival pallor. Neck: Supple Lungs: No respiratory distress Heart: Normal rate Abdomen: Distended MSK: No obvious deformities Neuro: Alert and oriented 3 Psych: Appropriate affect. Tearful about new cancer finding. Skin: No jaundice - Labs CBC & Chem 7: 11/23/20 09:50 11/23/20 09:50 Labs: Abnormal Lab Results - Last 24 Hours (Table) 11/23/20 11/23/20 Range/Units 09:50 09:50 WBC 14.6 H (3.8-10.6) k/uL RBC 3.53 L (3.80-5.40) m/uL Hgb 9.6 L D (11.4-16.0) gm/dL Hct 31.7 L (34.0-46.0) % MCHC 30.3 L (31.0-37.0) g/dL RDW 20.6 H (11.5-15.5) % Sodium 127 L (137-145) mmol/L Chloride 97 L (98-107) mmol/L Carbon Dioxide 21 L (22-30) mmol/L BUN 35 H (7-17) mg/dL Creatinine 2.59 H (0.52-1.04) mg/dL Calcium 7.3 L (8.4-10.2) mg/dL Microbiology - Last 24 Hours (Table) 11/21/20 10:45 Gram Stain - Preliminary Ascites Fluid Body Fluid Culture - Preliminary Assessment and Plan Plan: Assessment and Recommendations: Acute Renal Insufficiency: - WOrsening, creatinine >2 today - Nephrology following Presentation for Chest Pain: - Unknown etiology, COVID Negative, Mild effusions bilateral and bibasilar atelectasis New Onset Abdominal Ascites: - Status POst Paracentesis on 11/11/20 at [facility]: - 300cc removed again on 08/15/20 - Cytology Positive for Adenocarcinoma, Origin suspicious for upper GI or CASINO FLOOR [employer]NER/Breast Origin, however remains unknown at this time - Hx: iron deficiency anemia, Bariatric bypass surgery and inability to adeq uately scope over the years with chronic Iron deficiency. - Full breast exam and bilateral axillary without palpable or clinical findings to suggest malignancy, CT did not reveal abnormality. - AFP <2.7 (WNL), CA19-9 15 (WNL), CEA 6.3 (mild elevated) Chronic Iron Deficiency thought to be related to AVM/GI Blood loss and Absorbption secondary to past history - EGD 10/22/20: No evidence of bleeding or suspicion for malignancy. Report does mention erythema - Colonoscopy on 11/16/20: no evidence of bleeding, Left sided diverticulosis, internal hemorrhoids. No mass or definitive primary malignancy - She does have history of erosive esophagitis and ETOH Component B12 Deficiency: - Jonathan and Y history and malabsorption - Recheck B12 and FOlate and supplement prn Sick Sinus Syndrome/Paroxysmal Atrial FIbrillation: - Status Post Pacemaker Placement Recent: 11/04/20 - Continues on Xarelto - Cardiology to follow is recommended - Echocardiogram on 11/12/20: 55-60% EF Right Ventricle a 4.6x5.0 cm echodensity with a fluid filled cyst-like structure noted in the subcostal view (Dedicated imaging advised), not seen on 12/07/20 study Hyponatremia: - Secondary to third space - Nephrology to consult Depression/Anxiety: -Celexa Generalized Weakness: - PT/OT Thank you for allowing us to participate in the care of your patient will follow along with you Plan: - Patient has overall worsened through the weekend, renal function decreased and third space worsening. - Status Post Parenthesis with repeat cytology on 11/22/20 4000ml - Nephrology to continue assist with renal function - worsening - Will follow-up with Dr. Cr after discharge - Discussed with GI and EGD was performed in October of this year - Unable to move forward with mammography or breast imaging per department.
[2020-11-23] MEDS: ATORVASTATIN 40 MG TAB PO SCH (20:56)
[2020-11-24] MEDS ORDERED: SODIUM CHLORIDE 0.9% 500 ML 500 ML IV ONE ×2 (06:45→09:42)
[2020-11-24] MEDS: ACETAMINOPHEN TAB 500 MG TAB PO PRN ×2 (07:34→21:15)
[2020-11-24] MEDS: SODIUM BICARBONATE TAB 650 MG TAB PO SCH ×3 (07:34→21:46)
[2020-11-24] MEDS: SOTALOL 120 MG TAB PO SCH ×2 (07:34→23:04)
[2020-11-24] MEDS: MIDODRINE 5 MG TAB PO SCH ×3 (07:34→16:54)
[2020-11-24] MEDS: ONDANSETRON 4 MG/2 ML VIAL IVP PRN ×2 (07:34→21:00)
[2020-11-24] MEDS: PANTOPRAZOLE 40 MG TABLET PO SCH ×2 (07:35→16:54)
[2020-11-24] MEDS: SODIUM CHLORIDE 0.45% 1,000 ML with SODIUM BICARB (1 MEQ/ML) 150 ML IV SCH ×2 (07:35)
[2020-11-24 10:21] LABS: ALT 11 U/L (4-34); AST 49 U/L (14-36); Albumin 1.6 g/dL (3.5-5.0); Albumin/Globulin Ratio 0.9; Alkaline Phosphatase 79 U/L (38-126); Anion Gap 9 mmol/L; Blood Urea Nitrogen 39 mg/dL (7-17); Calcium 7.2 mg/dL (8.4-10.2); Carbon Dioxide 20 mmol/L (22-30); Chloride 96 mmol/L (98-107); Globulin 1.7 g/dL; Glucose 96 mg/dL (74-99); Sodium 125 mmol/L (137-145); Total Bilirubin 0.2 mg/dL (0.2-1.3); Total Protein 3.3 g/dL (6.3-8.2)
[2020-11-24 10:28] LABS: African American GFR (CKD) 19 (>60 ml/min/1.73 sqM); Non-African American GFR(CKD) 16 (>60 ml/min/1.73 sqM)
[2020-11-24] MEDS ORDERED: DEXTROSE/WATER 1 250ML.BAG with DOPamine DRIP 800 MG IV SCH (10:30)
[2020-11-24 10:31] LABS: Glucose,Whole Blood 69 mg/dL (75-99)
[2020-11-24 10:46] LABS: Glucose,Whole Blood <20 mg/dL (75-99)
[2020-11-24 10:47] LABS: Glucose,Whole Blood 56 mg/dL (75-99)
[2020-11-24] MEDS ORDERED: DEXTROSE 50% SYRINGE 50 ML IVP ONE (10:52)
--- NOTE | 2020-11-24 10:57 | P.EN ---
A- team: Indication: Hypotension Patient was hypotensive and did not respond to fluid bolus ordered by primary. Nephrology ordered dopamine renal dose. Patient seen and examined at bedside. She complains of feeling "off" and having some perioral numbness, word finding difficulties and just feeling foggy. She reports shortness of breath which is unchanged. She denies any chest pain. Blood pressure on my arrival was 80/50 but this is the best it had been all day. She recounts that she wants to be a full code and have everything tried. If she is not going to be able to wake up and do for herself and she would not want to remain alive, or if resuscitative efforts were thought to be futile she would not want to undergo them. Vital signs reviewed General: non toxic, no distress, appears at stated age Derm: warm, dry Head: atraumatic, normocephalic, symmetric Eyes: EOMI, no lid lag, anicteric sclera Mouth: no lip lesion, mucus membranes moist Cardiovascular: S1S2 reg, no murmur,absent posterior tibial pulse bilateral, Lungs: Decreased bs bilateral, no rhonchi, no rales , no accessory muscle use Abdominal: soft, nontender to palpation, no guarding, no appreciable organomegaly Ext: no gross muscle atrophy, trace edema, no contractures, purple discoloration biltateral toes Neuro: CN II-XI grossly intact, no focal neuro deficits Psych: Alert, oriented, appropriate affect Assessment/Plan: Persistent hypotension in the setting of peritoneal adenocarcinoma -Has been on Midodrine 10 mg 3 times a day. Already on a sodium bicarb drip. -Nephrology has ordered dopamine renal dose -Patient has failed bolus 1 -Echocardiogram reviewed with preserved ejection fraction -Patient is full code - stop dilaudid, start fentayl due to severe pain and attempt to be blood pressure neutral Hypoglycemia with poor appetite - midline ordered - 1/2 Amp D50 ordered - change sodium bicarb to D5 with 3 amps of sodium bicarb at 100 mls Anuric renal failure - nephrology following Notified: Dr. Chavez lerma with transfer to ICU Dr. Appiah A total of 33 minutes of critical care time was spent in the care of this complex patient.
[2020-11-24 10:59] LABS: Anisocytosis Moderate; Basophils # (A) 0.1 k/uL (0-0.2); Basophils % (A) 0 %; Eosinophils % (A) 0 %; HGB 9.1 gm/dL (11.4-16.0); Hypochromasia Marked; Lymphocytes # (A) 0.4 k/uL (1.0-4.8); Lymphocytes % (A) 3 %; MCH 27.6 pg (25.0-35.0); MCHC 30.4 g/dL (31.0-37.0); MCV 90.7 fL (80.0-100.0); Mean Platelet Volume 8.7; Monocytes # (A) 0.9 k/uL (0-1.0); Monocytes % (A) 6 %; Neutrophils % (A) 90 %; RBC 3.31 m/uL (3.80-5.40); RDW 20.4 % (11.5-15.5); WBC 14.4 k/uL (3.8-10.6)
[2020-11-24 11:03] LABS: Glucose,Whole Blood 130 mg/dL (75-99)
[2020-11-24 11:03] LABS: Platelet Count 404 k/uL (150-450)
[2020-11-24] MEDS: fentaNYL (PF) 50 MCG/ML 2 ML AMP IVP PRN (11:14)
[2020-11-24] MEDS ORDERED: ALBUMIN HUMAN 5% 500 ML in EMPTY BAG 1 BAG IVPB ONE (11:30)
--- NOTE | 2020-11-24 11:31 | P.CNPUL ---
History of Present Illness Consult date: 11/24/20 Requesting physician: Timothy Appiah Reason for consult: other (Critical care management) Chief complaint: Weakness and abdominal pain History of present illness: This is a very pleasant 70-year-old female patient who follows with Dr. Daniel as her primary care provider. She has a history of obesity with previous gastric bypass, former smoker, depression, hyperlipidemia, atrial fibrillation ant icoagulated with Xarelto, status post permanent pacemaker implantation approximately 3 weeks ago at [facility] [place]. She had been having ongoing issues with abdominal discomfort and distention. Apparently there was a paracentesis done at [place] that was positive for adenocarcinoma. She was in the process of being worked up for that. She came here to the emergency room on 11/18/2020 for abdominal discomfort and weakness. Chest x-ray revealed COPD with basilar infiltrate and small effusion left greater than right. Mild central venous congestion. KUB revealed nonspecific abdomen, again bilateral infiltrates left greater than right. EKG revealed atrial pacing and ventricular sensing. Ec hocardiogram reveals preserved left ventricular systolic function with ejection fraction 6065%. There is questionable vegetation on the tricuspid valve. Abdominal ultrasound revealed a small amount of ascites. Transvaginal ultrasound revealed no endometrial mass. No adnexal mass. Some fluid from the ascites. Computed tomography scan of the brain revealed a focal 1 cm area of hypodensity in the subcortical lateral right frontal lobe which could be chronic changes versus a metastatic lesion. This was a noncontrast CAT scan. Ultrasound of the kidneys revealed no significant hydronephrosis. She did develop more ascites and on 11/21/2020 she had undergone an ultrasound-guided paracentesis with 4 L of straw-colored fluid removed. Pathology is pending. She has had a poor appetite with the ongoing abdominal pain and discomfort. Developing protein calorie malnutrition. Surgery was consulted for possible Dobbhoff placement however due to her gastric bypass surgery there is no stomach reservoir and unable to pass the tube. This morning the patient developed hypotension with blood pressures 60-70 systolic. She had been Midodrine the last 3 days. She was transferred to the intensive care unit on this consultation was requested. She is seen in the ICU. She had been on midodrine the past 3 days. She is currently awake and alert. She has some slurred speech. She was also having issues with hypoglycemia. She is pale. White count 14.4. Hemoglobin 9.1. Platelets 404. Sodium 125. Potassium 5.0. Bicarb 20. BUN 39. Creatinine 2.88. Follow-up glucose 1:30. Albumin 1.6. CA 153 is 61.7. CA 2729 is 131. CA 125 is 290. Cortisol level 22.0 two days ago. She is currently receiving fluid resuscitation. Review of Systems REVIEW OF SYSTEMS: CONSTITUTIONAL: Denies weakness, fatigue. EYES: Denies change in vision. EARS, NOSE, MOUTH, THROAT: Denies headaches, denies sore throat. CARDIOVASCULAR: Denies chest pain, palpitations or syncopal episodes. RESPIRATORY: Denies shortness of breath, cough, congestion or hemoptysis. GASTROINTESTINAL: Positive for poor appetite, abdominal pain and fullness. GENITOURINARY: Denies hematuria, denies infections. MUSKULOSKELETAL: Denies pain, denies swelling. INTEGUMENTARY: Denies rash, denies eczema. NEUROLOGICAL: Denies recent memory loss, no recent seizure activity. PSYCHIATRIC: Denies anxiety, denies depression. HEMATOLOGIC/LYMPHATIC: Denies anemia, denies enlarged lymph nodes. Past Medical History Past Medical History: Atrial Fibrillation, Cancer, Hyperlipidemia, Hypertension Additional Past Medical History / Comment(s): anenia History of Any Multi-Drug Resistant Organisms: None Reported Past Surgical History: Appendectomy, Hernia Repair, Pacemaker, Tonsillectomy Additional Past Surgical History / Comment(s): Paracentis 11/28, gastic bypass, loop recorder placement Past Anesthesia/Blood Transfusion Reactions: No Reported Reaction Type of Cardiac Device: Permanent Pacemaker Device Placement Date:: 11/04/2020 Past Psychological History: Depression Smoking Status: Former smoker Past Alcohol Use History: Occasional - Past Family History Father Family Medical History: CVA/TIA, Hypertension Additional Family Medical History / Comment(s): Father from stroke Mother Additional Family Medical History / Comment(s): Mother from alzheimer's disease Medications and Allergies Home Medications Medication Instructions Recorded Confirmed Type traZODone HCL [TraZODone HCl] 50 - 150 mg PO TID PRN 10/11/20 11/18/20 History Atorvastatin [Lipitor] 40 mg PO HS 11/18/20 11/18/20 History Escitalopram [Lexapro] 10 mg PO DAILY PRN 11/18/20 11/18/20 History Omeprazole 40 mg PO DAILY 11/18/20 11/18/20 History Rivaroxaban [Xarelto] 15 mg PO W/SUPPER 11/18/20 11/18/20 History Simethicone 80 mg PO Q4H PRN 11/18/20 11/18/20 History Sotalol [Betapace] 180 mg PO BID 11/18/20 11/18/20 History Sucralfate [Carafate] 1 gm PO Q8H 11/18/20 11/18/20 History tiZANidine HCL [Zanaflex] 2 mg PO TID PRN 11/18/20 11/18/20 History Allergies Allergy/AdvReac Type Severity Reaction Status Date / Time isosorbide [From Isnj] Allergy Severe Anaphylaxis Verified 11/18/20 09:40 hydralazine Allergy Rash/Hives Verified 11/18/20 09:40 Physical Exam Vitals: Vital Signs Temp Pulse Resp BP BP Pulse Ox 11/24/20 08:38 66/46 11/24/20 05:06 70/50 11/24/20 04:33 97.5 F L 68 16 98 11/23/20 19:44 97.5 F L 70 20 96/62 93 L 11/23/20 11:58 97.5 F L 78 17 73/56 100 Intake and Output 11/23/20 11/24/20 11/24/20 22:59 06:59 14:59 Intake Total 240 Output Total 50 10 Balance -50 230 Intake: Oral 240 Output: Urine 50 10 Uretheral (Alcantar) 5 Other: Voiding Method Indwelling Catheter Indwelling Catheter # Bowel Movements 1 GENERAL EXAM: Alert, pleasant 70-year-old obese female, on 5 L nasal cannula, O2 saturation 98%, uncomfortable due to abdominal discomfort. HEAD: Normocephalic. EYES: Normal reaction of pupils, equal size. NOSE: Clear with pink turbinates. THROAT: No erythema or exudates. NECK: No masses, no JVD. CHEST: No chest wall deformity. LUNGS: Equal air entry with faint crackles in the posterior bases, left greater than right. CVS: S1 and S2 normal with no audible murmur, regular rhythm. ABDOMEN: Distended, tender to palpation, normal bowel sounds, no guarding or rigidity. SPINE: No scoliosis or deformity SKIN: No rashes CENTRAL NERVOUS SYSTEM: No focal deficits, tone is normal in all 4 extremities. EXTREMITIES: There is trace peripheral edema. No clubbing, no cyanosis. Peripheral pulses are intact. Results - Laboratory Findings CBC and BMP: 11/23/20 09:50 11/24/20 09:43 PT/INR, D-dimer PT 11.4 sec (9.9-11.9) 11/19/20 05:24 INR 1.05 (0.90-1.11) 11/19/20 05:24 Abnormal lab findings: Abnormal Labs 11/18/20 11/18/20 11/18/20 09:17 09:17 09:17 WBC 11.4 H RBC Hgb 11.1 L Hct MCHC RDW 20.0 H Neutrophils # 9.8 H Neutrophils # (Manual) Lymphocytes # 0.6 L Lymphocytes # (Manual) Monocytes # Sodium 125 L Potassium Chloride Carbon Dioxide 17 L Anion Gap BUN Creatinine 1.18 H Est GFR (CKD-EPI)AfAm Est GFR (CKD-EPI)NonAf BUN/Creatinine Ratio Glucose POC Glucose (mg/dL) Osmolality Uric Acid Calcium 8.2 L Iron TIBC % Saturation Ferritin Total Bilirubin AST Total Protein 4.5 L Albumin 2.3 L Amylase <30 L CA 15-3 Antigen CA 27-29 CA 125 Antigen Vitamin B12 Urine Appearance Turbid H Urine Protein 1+ H Urine Ketones Trace H Urine Blood Large H Urine Bilirubin 1+ H Ur Leukocyte Esterase Small H Urine RBC 8 H Urine WBC 7 H Ur Squamous Epith Cells 26 H Amorphous Sediment Occasional H Urine Bacteria Occasional H Hyaline Casts 22 H Urine Mucus Few H 11/19/20 11/19/20 11/19/20 05:24 05:24 05:24 WBC RBC Hgb Hct MCHC RDW Neutrophils # Neutrophils # (Manual) Lymphocytes # Lymphocytes # (Manual) Monocytes # Sodium 124 L Potassium Chloride Carbon Dioxide 17 L Anion Gap BUN Creatinine 1.70 H Est GFR (CKD-EPI)AfAm Est GFR (CKD-EPI)NonAf BUN/Creatinine Ratio Glucose 72 L POC Glucose (mg/dL) Osmolality 266 L Uric Acid Calcium Iron TIBC % Saturation Ferritin Total Bilirubin 0.1 L AST Total Protein 4.1 L Albumin 2.1 L Amylase CA 15-3 Antigen 61.7 H CA 27-29 131.2 H CA 125 Antigen 290.0 H Vitamin B12 2362.0 H Urine Appearance Urine Protein Urine Ketones Urine Blood Urine Bilirubin Ur Leukocyte Esterase Urine RBC Urine WBC Ur Squamous Epith Cells Amorphous Sediment Urine Bacteria Hyaline Casts Urine Mucus 11/19/20 11/21/20 11/21/20 05:24 04:46 04:46 WBC 10.8 H 16.2 H RBC 3.60 L Hgb 9.7 L 10.2 L Hct 32.8 L MCHC 29.6 L 28.4 L RDW 19.6 H 19.7 H Neutrophils # 13.9 H Neutrophils # (Manual) 9.50 H Lymphocytes # 0.9 L Lymphocytes # (Manual) 0.86 L Monocytes # 1.2 H Sodium 125 L Potassium 5.3 H Chloride Carbon Dioxide 14 L Anion Gap BUN 25 H Creatinine 2.40 H Est GFR (CKD-EPI)AfAm Est GFR (CKD-EPI)NonAf BUN/Creatinine Ratio Glucose 71 L POC Glucose (mg/dL) Osmolality Uric Acid Calcium 8.0 L Iron TIBC % Saturation Ferritin Total Bilirubin AST Total Protein Albumin Amylase CA 15-3 Antigen CA 27-29 CA 125 Antigen Vitamin B12 Urine Appearance Urine Protein Urine Ketones Urine Blood Urine Bilirubin Ur Leukocyte Esterase Urine RBC Urine WBC Ur Squamous Epith Cells Amorphous Sediment Urine Bacteria Hyaline Casts Urine Mucus 11/22/20 11/22/20 11/22/20 03:35 03:35 03:35 WBC 14.3 H RBC 3.09 L Hgb 8.0 L D Hct 27.9 L MCHC 28.8 L RDW 19.9 H Neutrophils # 12.4 H Neutrophils # (Manual) Lymphocytes # 0.5 L Lymphocytes # (Manual) Monocytes # 1.2 H Sodium 129 L Potassium Chloride Carbon Dioxide 16.2 L Anion Gap 15.80 H BUN 32.0 H Creatinine 2.9 H Est GFR (CKD-EPI)AfAm 18.5 L Est GFR (CKD-EPI)NonAf 16.0 L BUN/Creatinine Ratio 11.03 L Glucose POC Glucose (mg/dL) Osmolality Uric Acid Calcium 7.8 L Iron 12 L TIBC 121 L % Saturation 9.92 L Ferritin 554.9 H Total Bilirubin AST Total Protein Albumin Amylase CA 15-3 Antigen CA 27-29 CA 125 Antigen Vitamin B12 Urine Appearance Urine Protein Urine Ketones Urine Blood Urine Bilirubin Ur Leukocyte Esterase Urine RBC Urine WBC Ur Squamous Epith Cells Amorphous Sediment Urine Bacteria Hyaline Casts Urine Mucus 11/23/20 11/23/20 11/23/20 09:50 09:50 09:50 WBC 14.6 H RBC 3.53 L Hgb 9.6 L D Hct 31.7 L MCHC 30.3 L RDW 20.6 H Neutrophils # Neutrophils # (Manual) Lymphocytes # Lymphocytes # (Manual) Monocytes # Sodium 127 L Potassium Chloride 97 L Carbon Dioxide 21 L Anion Gap BUN 35 H Creatinine 2.59 H Est GFR (CKD-EPI)AfAm Est GFR (CKD-EPI)NonAf BUN/Creatinine Ratio Glucose POC Glucose (mg/dL) Osmolality Uric Acid 11.0 H Calcium 7.3 L Iron TIBC % Saturation Ferritin Total Bilirubin AST Total Protein Albumin Amylase CA 15-3 Antigen CA 27-29 CA 125 Antigen Vitamin B12 Urine Appearance Urine Protein Urine Ketones Urine Blood Urine Bilirubin Ur Leukocyte Esterase Urine RBC Urine WBC Ur Squamous Epith Cells Amorphous Sediment Urine Bacteria Hyaline Casts Urine Mucus 11/24/20 11/24/20 11/24/20 09:43 10:19 10:44 WBC RBC Hgb Hct MCHC RDW Neutrophils # Neutrophils # (Manual) Lymphocytes # Lymphocytes # (Manual) Monocytes # Sodium 125 L Potassium Chloride 96 L Carbon Dioxide 20 L Anion Gap BUN 39 H Creatinine 2.88 H Est GFR (CKD-EPI)AfAm Est GFR (CKD-EPI)NonAf BUN/Creatinine Ratio Glucose POC Glucose (mg/dL) 69 L <20 L Osmolality Uric Acid Calcium 7.2 L Iron TIBC % Saturation Ferritin Total Bilirubin AST 49 H Total Protein 3.3 L Albumin 1.6 L Amylase CA 15-3 Antigen CA 27-29 CA 125 Antigen Vitamin B12 Urine Appearance Urine Protein Urine Ketones Urine Blood Urine Bilirubin Ur Leukocyte Esterase Urine RBC Urine WBC Ur Squamous Epith Cells Amorphous Sediment Urine Bacteria Hyaline Casts Urine Mucus 11/24/20 10:46 WBC RBC Hgb Hct MCHC RDW Neutrophils # Neutrophils # (Manual) Lymphocytes # Lymphocytes # (Manual) Monocytes # Sodium Potassium Chloride Carbon Dioxide Anion Gap BUN Creatinine Est GFR (CKD-EPI)AfAm Est GFR (CKD-EPI)NonAf BUN/Creatinine Ratio Glucose POC Glucose (mg/dL) 56 L Osmolality Uric Acid Calcium Iron TIBC % Saturation Ferritin Total Bilirubin AST Total Protein Albumin Amylase CA 15-3 Antigen CA 27-29 CA 125 Antigen Vitamin B12 Urine Appearance Urine Protein Urine Ketones Urine Blood Urine Bilirubin Ur Leukocyte Esterase Urine RBC Urine WBC Ur Squamous Epith Cells Amorphous Sediment Urine Bacteria Hyaline Casts Urine Mucus - Diagnostic Findings Chest x-ray: image reviewed Assessment and Plan Assessment: 1 Acute hypotension suspect secondary to hypo-albuminemia, dehydration. Initiated on Midodrine without much improvement 2 Adenocarcinoma found in paracentesis fluid at an outside facility, unknown primary, oncology workup in progress 3 Abdominal ascites status post second paracentesis done here with 4 L of straw- colored fluid removed, pathology pending 4 Generalized weakness, poor appetite, fatigue secondary to above 5 Acute kidney injury secondary to hypotension, current creatinine 2.88 6 Acute hypoxemic respiratory failure secondary to left pleural effusion 7 Atrial fibrillation status post permanent pacemaker implantation approximately 3 weeks ago at [facility] [place], anticoagulated with Xarelto 8 Hyponatremia, current sodium 125 9 Anemia, current hemoglobin 9.1 10 Hypoalbuminemia, current albumin 1.6 11 Obesity with previous history of gastric bypass 12 Hyperlipidemia 13 Depression Plan: The patient was seen and evaluated by Dr. Shea Chest x-ray and labs reviewed We'll give albumin 5% 500 ML's Continue D5W with 3 A of bicarbonate 100 ML's per hour Dopamine 2.5 g/kg/m Anticoagulated with Xarelto Oncology workup ongoing Titrate the FiO2 as tolerated Continue close monitoring here in the ICU We will continue to follow and make further recommendations based on her clinical status I, the cosigning physician, performed a history & physical examination of the patient. Lungs sounds bibasilar crackles left greater than right. Maintaining good O2 saturations in the 90s on 5 L/m per nasal cannula. I discussed the assessment and plan of care with my nurse practitioner, Anel Carrizales. I attest to the above consultation as dictated by her. Time with Patient: Greater than 30
[2020-11-24 11:35] LABS: Magnesium 1.7 mg/dL (1.6-2.3); Phosphorus 6.1 mg/dL (2.5-4.5)
[2020-11-24] MEDS ORDERED: DEXTROSE 5% IN WATER 1,000 ML with SODIUM BICARB (1 MEQ/ML) 150 ML IV SCH (12:00)
[2020-11-24] MEDS ORDERED: DEXTROSE 50% SYRINGE 50 ML IVP STA (12:31)
[2020-11-24 12:38] LABS: Glucose,Whole Blood 53 mg/dL (75-99)
[2020-11-24 12:46] LABS: Glucose,Whole Blood 149 mg/dL (75-99)
--- NOTE | 2020-11-24 12:49 | PN ---
PROGRESS NOTE Patient is seen for followup for acute kidney injury. This morning her blood pressure was significantly lower with systolic in the 70s. She is, however, communicating. She is awake. Denies any significant complaints. The patient's systolic blood pressure had been about 95-110 mmHg yesterday. She remains on midodrine. Urine output remains low with only about 5 mL documented for the last 8 hours, a 24 hour output at 300 mL. The patient has an indwelling Alcantar catheter. Yesterday, serum creatinine was slightly better than the day before going down to 2.59 from 2.9. Today, her creatinine is up to 2.8, serum sodium is further decreased to 125 mEq/L today. The patient remains on bicarb drip. PHYSICAL EXAMINATION: Blood pressure was 70/50, heart rate 68 per minute. She is afebrile. Examination of the heart S1, S2. Examination of the lungs, bilateral breath sounds are heard. Abdomen is soft, nontender. Examination of lower extremities shows no significant edema. DELIVERY CONSULTANT exam grossly intact. LAB: Show hemoglobin 9.1, sodium 125, potassium 5.0, chloride 96, CO2 is 20, BUN 39, creatinine 2.8, calcium 7.2, phosphorus 6.1, albumin 1.6. ASSESSMENT: 1. Acute kidney injury (ATN) secondary to hypotension. UA shows some blood and protein. Yesterday's renal function had improved. However, urine output remains low and I have discussed renal replacement therapy with the patient. She is agreeable to starting dialysis when indicated. At this time given the significant hypotension, I will start the patient on pressors and transfer her to the unit. We will give her another L bolus of IV fluids. 2. 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 3. Hyponatremia, euvolemic. The patient is maintained on hypertonic bicarb drip. Serum sodium has not improved yet. It is slightly worse today. I will give her a dose of Samsca today. 4. Metabolic acidosis secondary to renal failure. Continue with the bicarb drip. 5. Hypotension. No obvious underlying infection noted at this time. Recheck UA and send for urine culture. 6. Hyperphosphatemia secondary to renal failure. PLAN: IV fluid bolus now. Start pressors. We can start with low-dose dopamine and if she remains hypotensive, we may need to increase the dose or switch to Levophed. One dose of tolvaptan p.o. x1 now. MMODL / IJN: [id number] /
[2020-11-24] MEDS ORDERED: TOLVAPTAN 15 MG 1/2 TABLET PO ONE (13:00)
--- NOTE | 2020-11-24 13:03 | P.PN ---
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 She's undergoing oncology workup. Today patient became hypotensive and required transfer to the ICU. She had received IV fluid bolus with no improvement. Patient has been started on dopamine. And also given IV albumin. Albumin level was 1.6. Surgical service is following in regards to possible Dobbhoff tube placement. Patient afebrile hypotensive. Blood pressure currently 83/56 WBC 14.4 hemoglobin 9.1 platelets 404 sodium 125 potassium 5.0 creatinine 2.88 albumin 1.6 Patient seen and examined with Dr. kelly PHYSICAL EXAM: VITAL SIGNS: Reviewed. GENERAL: Well-developed in no acute distress. HEENT: No sclera icterus. Extraocular movements grossly intact. Moist buccal mucosa. Head is atraumatic, normocephalic. ABDOMEN: Soft. Nondistended. Nontender. NEUROLOGIC: Alert and oriented. Cranial nerves II through XII grossly intact. ASSESSMENT: 1. Adenocarcinoma diagnosed from peritoneal fluid. Primary unknown 2. Severe protein calorie malnutrition 3. History of gastric bypass surgery PLAN: -Due to patient's previous gastric bypass surgery she has no stomach reservoir therefore she is not a candidate for Dobbhoff placement -Continue supportive care and oncology workup -Recommend alternative route for nutrition support such as TPN Physician Geneticist note has been reviewed by physician. Signing provider agrees with the documented findings, assessment, and plan of care. Objective - Vital Signs Vital signs: Vital Signs Temp 97.5 F L 11/24/20 04:33 Pulse 70 11/24/20 12:30 Resp 10 L 11/24/20 12:30 BP 83/56 11/24/20 12:30 Pulse Ox 98 11/24/20 04:33 Intake & Output 11/23/20 11/24/20 11/24/20 18:59 06:59 18:59 Intake Total 240 600 Output Total 50 10 5 Balance -50 230 595 Intake: IV 100 Dextrose 5% in Water 1, 100 000 ml @ 100 mls/hr IV . [id number] with Sodium Bicarb (1 Meq/ml) 150 ml Rx#:[id number] Intake, IV Titration 500 Amount Albumin Human 5% 500 ml 500 In Empty Bag 1 bag @ 500 mls/hr IVPB ONCE ONE Rx#: [id number] Oral 240 Output: Urine 50 10 5 Uretheral (Alcantar) 5 Other: Voiding Method Indwelling Catheter Indwelling Catheter Indwelling Catheter # Bowel Movements 1 - Labs CBC & Chem 7: 11/24/20 09:43 11/24/20 09:43 Labs: Abnormal Lab Results - Last 24 Hours (Table) 11/23/20 11/24/20 11/24/20 Range/Units 09:50 09:43 09:43 WBC 14.4 H (3.8-10.6) k/uL RBC 3.31 L (3.80-5.40) m/uL Hgb 9.1 L (11.4-16.0) gm/dL Hct 30.0 L (34.0-46.0) % MCHC 30.4 L (31.0-37.0) g/dL RDW 20.4 H (11.5-15.5) % Neutrophils # 13.0 H (1.3-7.7) k/uL Lymphocytes # 0.4 L (1.0-4.8) k/uL Sodium 125 L (137-145) mmol/L Chloride 96 L (98-107) mmol/L Carbon Dioxide 20 L (22-30) mmol/L BUN 39 H (7-17) mg/dL Creatinine 2.88 H (0.52-1.04) mg/dL POC Glucose (mg/dL) (75-99) mg/dL Uric Acid 11.0 H (2.9-7.7) mg/dL Calcium 7.2 L (8.4-10.2) mg/dL Phosphorus (2.5-4.5) mg/dL AST 49 H (14-36) U/L Total Protein 3.3 L (6.3-8.2) g/dL Albumin 1.6 L (3.5-5.0) g/dL 11/24/20 11/24/20 11/24/20 Range/Units 09:45 10:19 10:44 WBC (3.8-10.6) k/uL RBC (3.80-5.40) m/uL Hgb (11.4-16.0) gm/dL Hct (34.0-46.0) % MCHC (31.0-37.0) g/dL RDW (11.5-15.5) % Neutrophils # (1.3-7.7) k/uL Lymphocytes # (1.0-4.8) k/uL Sodium (137-145) mmol/L Chloride (98-107) mmol/L Carbon Dioxide (22-30) mmol/L BUN (7-17) mg/dL Creatinine (0.52-1.04) mg/dL POC Glucose (mg/dL) 69 L <20 L (75-99) mg/dL Uric Acid (2.9-7.7) mg/dL Calcium (8.4-10.2) mg/dL Phosphorus 6.1 H (2.5-4.5) mg/dL AST (14-36) U/L Total Protein (6.3-8.2) g/dL Albumin (3.5-5.0) g/dL 11/24/20 11/24/20 11/24/20 Range/Units 10:46 11:01 12:29 WBC (3.8-10.6) k/uL RBC (3.80-5.40) m/uL Hgb (11.4-16.0) gm/dL Hct (34.0-46.0) % MCHC (31.0-37.0) g/dL RDW (11.5-15.5) % Neutrophils # (1.3-7.7) k/uL Lymphocytes # (1.0-4.8) k/uL Sodium (137-145) mmol/L Chloride (98-107) mmol/L Carbon Dioxide (22-30) mmol/L BUN (7-17) mg/dL Creatinine (0.52-1.04) mg/dL POC Glucose (mg/dL) 56 L 130 H 53 L (75-99) mg/dL Uric Acid (2.9-7.7) mg/dL Calcium (8.4-10.2) mg/dL Phosphorus (2.5-4.5) mg/dL AST (14-36) U/L Total Protein (6.3-8.2) g/dL Albumin (3.5-5.0) g/dL 11/24/20 Range/Units 12:45 WBC (3.8-10.6) k/uL RBC (3.80-5.40) m/uL Hgb (11.4-16.0) gm/dL Hct (34.0-46.0) % MCHC (31.0-37.0) g/dL RDW (11.5-15.5) % Neutrophils # (1.3-7.7) k/uL Lymphocytes # (1.0-4.8) k/uL Sodium (137-145) mmol/L Chloride (98-107) mmol/L Carbon Dioxide (22-30) mmol/L BUN (7-17) mg/dL Creatinine (0.52-1.04) mg/dL POC Glucose (mg/dL) 149 H (75-99) mg/dL Uric Acid (2.9-7.7) mg/dL Calcium (8.4-10.2) mg/dL Phosphorus (2.5-4.5) mg/dL AST (14-36) U/L Total Protein (6.3-8.2) g/dL Albumin (3.5-5.0) g/dL Microbiology - Last 24 Hours (Table) 11/21/20 10:45 Gram Stain - Preliminary Ascites Fluid Body Fluid Culture - Preliminary
[2020-11-24] MEDS: NOREPINEPHRINE 4 MG in SODIUM CHLORIDE 0.9% 250 ML IV SCH ×2 (14:30→21:49)
--- NOTE | 2020-11-24 15:19 | P.PN ---
Subjective Progress Note Date: 11/24/20 Principal diagnosis: New metastatic Cancer Unknown primary Patient seen this am on [facility] with A team at bedside. Path still pending. Hypotensive Objective - Vital Signs Vital signs: Vital Signs Temp 97.5 F L 11/24/20 04:33 Pulse 72 11/24/20 15:00 Resp 10 L 11/24/20 15:00 BP 75/48 11/24/20 15:00 Pulse Ox 93 L 11/24/20 15:00 Intake & Output 11/23/20 11/24/20 11/24/20 18:59 06:59 18:59 Intake Total 240 900 Output Total 50 10 5 Balance -50 230 895 Weight 95 kg Intake: IV 400 Dextrose 5% in Water 1, 400 000 ml @ 100 mls/hr IV . [id number] GUANAKITO with Sodium Bicarb (1 Meq/ml) 150 ml Rx#:[id number] Intake, IV Titration 500 Amount Albumin Human 5% 500 ml 500 In Empty Bag 1 bag @ 500 mls/hr IVPB ONCE ONE Rx#: [id number] Oral 240 Output: Urine 50 10 5 Uretheral (Alcantar) 5 Other: Voiding Method Indwelling Catheter Indwelling Catheter Indwelling Catheter # Bowel Movements 1 - Exam Gen: No acute distress HEENT: Conjunctival pallor. Neck: Supple Lungs: No respiratory distress Heart: Normal rate Abdomen: Distended MSK: No obvious deformities Neuro: lethargic Psych: lethargic Skin: No jaundice - Labs CBC & Chem 7: 11/24/20 09:43 11/24/20 09:43 Labs: Abnormal Lab Results - Last 24 Hours (Table) 11/23/20 11/24/20 11/24/20 Range/Units 09:50 09:43 09:43 WBC 14.4 H (3.8-10.6) k/uL RBC 3.31 L (3.80-5.40) m/uL Hgb 9.1 L (11.4-16.0) gm/dL Hct 30.0 L (34.0-46.0) % MCHC 30.4 L (31.0-37.0) g/dL RDW 20.4 H (11.5-15.5) % Neutrophils # 13.0 H (1.3-7.7) k/uL Lymphocytes # 0.4 L (1.0-4.8) k/uL Sodium 125 L (137-145) mmol/L Chloride 96 L (98-107) mmol/L Carbon Dioxide 20 L (22-30) mmol/L BUN 39 H (7-17) mg/dL Creatinine 2.88 H (0.52-1.04) mg/dL POC Glucose (mg/dL) (75-99) mg/dL Uric Acid 11.0 H (2.9-7.7) mg/dL Calcium 7.2 L (8.4-10.2) mg/dL Phosphorus (2.5-4.5) mg/dL AST 49 H (14-36) U/L Total Protein 3.3 L (6.3-8.2) g/dL Albumin 1.6 L (3.5-5.0) g/dL 11/24/20 11/24/20 11/24/20 Range/Units 09:45 10:19 10:44 WBC (3.8-10.6) k/uL RBC (3.80-5.40) m/uL Hgb (11.4-16.0) gm/dL Hct (34.0-46.0) % MCHC (31.0-37.0) g/dL RDW (11.5-15.5) % Neutrophils # (1.3-7.7) k/uL Lymphocytes # (1.0-4.8) k/uL Sodium (137-145) mmol/L Chloride (98-107) mmol/L Carbon Dioxide (22-30) mmol/L BUN (7-17) mg/dL Creatinine (0.52-1.04) mg/dL POC Glucose (mg/dL) 69 L <20 L (75-99) mg/dL Uric Acid (2.9-7.7) mg/dL Calcium (8.4-10.2) mg/dL Phosphorus 6.1 H (2.5-4.5) mg/dL AST (14-36) U/L Total Protein (6.3-8.2) g/dL Albumin (3.5-5.0) g/dL 11/24/20 11/24/20 11/24/20 Range/Units 10:46 11:01 12:29 WBC (3.8-10.6) k/uL RBC (3.80-5.40) m/uL Hgb (11.4-16.0) gm/dL Hct (34.0-46.0) % MCHC (31.0-37.0) g/dL RDW (11.5-15.5) % Neutrophils # (1.3-7.7) k/uL Lymphocytes # (1.0-4.8) k/uL Sodium (137-145) mmol/L Chloride (98-107) mmol/L Carbon Dioxide (22-30) mmol/L BUN (7-17) mg/dL Creatinine (0.52-1.04) mg/dL POC Glucose (mg/dL) 56 L 130 H 53 L (75-99) mg/dL Uric Acid (2.9-7.7) mg/dL Calcium (8.4-10.2) mg/dL Phosphorus (2.5-4.5) mg/dL AST (14-36) U/L Total Protein (6.3-8.2) g/dL Albumin (3.5-5.0) g/dL 11/24/20 Range/Units 12:45 WBC (3.8-10.6) k/uL RBC (3.80-5.40) m/uL Hgb (11.4-16.0) gm/dL Hct (34.0-46.0) % MCHC (31.0-37.0) g/dL RDW (11.5-15.5) % Neutrophils # (1.3-7.7) k/uL Lymphocytes # (1.0-4.8) k/uL Sodium (137-145) mmol/L Chloride (98-107) mmol/L Carbon Dioxide (22-30) mmol/L BUN (7-17) mg/dL Creatinine (0.52-1.04) mg/dL POC Glucose (mg/dL) 149 H (75-99) mg/dL Uric Acid (2.9-7.7) mg/dL Calcium (8.4-10.2) mg/dL Phosphorus (2.5-4.5) mg/dL AST (14-36) U/L Total Protein (6.3-8.2) g/dL Albumin (3.5-5.0) g/dL Microbiology - Last 24 Hours (Table) 11/21/20 10:45 Gram Stain - Preliminary Ascites Fluid Body Fluid Culture - Preliminary Assessment and Plan Plan: Assessment and Recommendations: Acute Renal Insufficiency: - WOrsening, creatinine >2 today - Nephrology following Presentation for Chest Pain: - Unknown etiology, COVID Negative, Mild effusions bilateral and bibasilar atelectasis New Onset Abdominal Ascites: - Status POst Paracentesis on 11/11/20 at [facility]: - 300cc removed again on 08/15/20 - Cytology Positive for Adenocarcinoma, Origin suspicious for upper GI or 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 - Full breast exam and bilateral axillary without palpable or clinical findings to suggest malignancy, CT did not reveal abnormality. - AFP <2.7 (WNL), CA19-9 15 (WNL), CEA 6.3 (mild elevated) Chronic Iron Deficiency thought to be related to AVM/GI Blood loss and Absorbption secondary to past history - EGD 10/22/20: No evidence of bleeding or suspicion for malignancy. Report does mention erythema - Colonoscopy on 11/16/20: no evidence of bleeding, Left sided diverticulosis, internal hemorrhoids. No mass or definitive primary malignancy - She does have history of erosive esophagitis and ETOH Component B12 Deficiency: - Jonathan and Y history and malabsorption - Recheck B12 and FOlate and supplement prn Sick Sinus Syndrome/Paroxysmal Atrial FIbrillation: - Status Post Pacemaker Placement Recent: 11/04/20 - Continues on Xarelto - Cardiology to follow is recommended - Echocardiogram on 11/12/20: 55-60% EF Right Ventricle a 4.6x5.0 cm echodensity with a fluid filled cyst-like structure noted in the subcostal view (Dedicated imaging advised), not seen on 12/07/20 study Hyponatremia: - Secondary to third space - Nephrology to consult Depression/Anxiety: -Celexa Generalized Weakness: - PT/OT Thank you for allowing us to participate in the care of your patient will follow along with you Plan: - overall status worsening, hypotensive event and current A team at bedside, plan to move to ICU. Will await how she does and await path prognosis guarded
[2020-11-24 16:42] LABS: Glucose,Whole Blood 95 mg/dL (75-99)
[2020-11-24] MEDS: RIVAROXABAN 15 MG TAB PO SCH (17:31)
[2020-11-24 17:33] LABS: Calcium 7.5 mg/dL (8.4-10.2); Potassium 4.5 mmol/L (3.5-5.1)
--- NOTE | 2020-11-24 19:54 | P.PN ---
Progress Note - Text Progress Note Date: 11/24/20 Chief Complaint: Weak and tired History of presenting complaint: This is a very pleasant 70-year-old patient who follows with Dr. Kenia Daniel. Chronic stable medical conditions include osteoarthritis, hypertension, hyperlipidemia, depression, insomnia. Patient was 2 days ago discharged from [facility]. Patient had a paracentesis carried out 3800 mL was removed. Cytology came back positive for adenocarcinoma. Follow-up was in progress. Patient has followed up with Dr. Dominguez in the past for iron deficiency and received IV iron. At home patient had been getting progressively worse. Barely able to walk. Does have a walker. . Very poor appetite. Constipation. Blood work from other hospitals reviewed. Also swelling in the lower extremity. No fever no chills. No cough. Abdomen some bit more distended. No pain Admitted with acute on chronic medical debility, medical asthenia, hyponatremia, secondary ascites, anorexia. Put on fluid restriction. Lasix. Abdominal ultrasound showed small ascites. Also acute kidney injury felt to be ATN. Consultation made to oncology, nephrology. Urine has been poor.4 L of straw- colored paracentesis done . Patient renal function worsening. Lasix discontinued. Given IV fluids. Per GI patient had EGD on October 22 at [facility]: Unremarkable. Poor appetite. has been visiting. They understand guarded prognosis. CODE STATUS was discussed with the patient has been on November 23. Patient elected to become DO NOT RESUSCITATE. Understanding guarded prognosis. Today: ICU: Ali this morning patient became more hypotensive. A-team was called. Dr. Hemphill spoke to the patient she wanted to be full code. Transferred to ICU. Patient started on dopamine drip. Levo fed drip. at the bedside. Patient tired. Able to answer questions. Rather tearful about her situation. Patient also hypoglycemic. Put on D5W. Review of systems: Was done for constitutional, cardiovascular, GI, pulmonary. relevant finding as above Active Medications Acetaminophen (Acetaminophen Tab 500 Mg Tab) 500 mg PO Q6HR PRN PRN Reason: Fever and/ or Pain Last Admin: 11/24/20 07:34 Dose: 500 mg Documented by: Atorvastatin Calcium (Atorvastatin 40 Mg Tab) 40 mg PO HS GUANAKITO Last Admin: 11/23/20 20:56 Dose: 40 mg Documented by: Escitalopram Oxalate (Escitalopram 10 Mg Tab) 10 mg PO DAILY PRN PRN Reason: depression Last Admin: 11/23/20 08:58 Dose: 10 mg Documented by: Fentanyl Citrate (Fentanyl (Pf) 50 Mcg/Ml 2 Ml Amp) 25 mcg IVP Q4H PRN PRN Reason: Severe Pain Last Admin: 11/24/20 11:14 Dose: 25 mcg Documented by: Norepinephrine Bitartrate 4 mg (/ Sodium Chloride) 254 mls @ 18.098 mls/hr IV .Q14H3M [facility]; Protocol Last Titration: 11/24/20 17:49 Dose: 0.12 mcg/kg/min, 43.434 mls/hr Documented by: Ceftriaxone Sodium 1 gm/ (Sodium Chloride) 50 mls @ 100 mls/hr IVPB Q24H [facility] Last Admin: 11/24/20 15:00 Dose: 100 mls/hr Documented by: Sodium Chloride (Saline 0.9%) 1,000 mls @ 100 mls/hr IV .Q10H [facility] Midodrine (Midodrine 5 Mg Tab) 10 mg PO AC-TID [facility] Last Admin: 11/24/20 16:54 Dose: 10 mg Documented by: Naloxone HCl (Naloxone 0.4 Mg/Ml 1 Ml Vial) 0.2 mg IV Q2M PRN PRN Reason: Opioid Reversal Ondansetron HCl (Ondansetron 4 Mg/2 Ml Vial) 4 mg IVP Q8HR PRN PRN Reason: Nausea And Vomiting Last Admin: 11/24/20 07:34 Dose: 4 mg Documented by: Pantoprazole Sodium (Pantoprazole 40 Mg Tablet) 40 mg PO AC-BID [facility] Last Admin: 11/24/20 16:54 Dose: 40 mg Documented by: Rivaroxaban (Rivaroxaban 15 Mg Tab) 15 mg PO W/SUPPER [facility]; Protocol Last Admin: 11/24/20 17:31 Dose: 15 mg Documented by: Simethicone (Simethicone 80 Mg Chewable) 80 mg PO Q4H PRN PRN Reason: discomfort Last Admin: 11/23/20 13:41 Dose: 80 mg Documented by: Sodium Bicarbonate (Sodium Bicarbonate Tab 650 Mg Tab) 650 mg PO TID [facility] Last Admin: 11/24/20 16:35 Dose: 650 mg Documented by: Sotalol HCl (Sotalol 120 Mg Tab) 180 mg PO BID GUANAKITO Last Admin: 11/24/20 07:34 Dose: 180 mg Documented by: Past medical history to include: Atrial fibrillation, hypertension, hyperlipidemia, iron deficiency anemia, gastric bypass surgery, just diagnosed with adenocarcinoma in the peritoneal fluid primary unknown, osteoarthritis Social history: Patient quit smoking in 1994. Sometimes has wine. . Walker. Physical examination: VITAL SIGNS: Afebrile, 70, 11, 76 x 65, 93% on nasal cannula GENERAL: Reclining in bed, tired EYES: Pupils equal. Conjunctiva pale. NECK: JVD unable to assess; masses not palpable. HEART: Irregular heart sounds; edema present. LUNGS: Respiratory rate increased decreased breath sounds. ABDOMEN: Soft, slight distention, tenderness, liver spleen not palpable, no masses palpable. PSYCH: [Alert and oriented x3; mood and affect, anxious MUSCULAR skeletal: Evidence of OA, NEUROLOGICAL: Cranial nerves grossly intact; no facial asymmetry, generally decreased power and sensation grossly intact. INVESTIGATIONS, reviewed in the clinical context: November 24: WBC 14.4 hemoglobin 9.1 platelets 404 sodium 125 BUN 39 creatinine 2.88 November 23: WBC 14.6 hemoglobin 9.6 sodium 127 potassium 4.5 BUN 35 creatinine 2.59 November 22: WBC 14.3 hemoglobin 8 platelets 357 sodium 129 potassium 4.6 creatinine 2.9I and 12 TIBC 121% saturation 9.9 to November 21: WBC 16.2 hemoglobin 10.2 sodium 125 potassium 5.3 BUN 25 creatinine 2.40 Ultrasound axilla and right to left: No obvious lymph node detected Ultrasound kidney bladder: Mild ascites. No evidence of medical renal disease reported November 19: WBC 10.8 hemoglobin 9.7 sodium 124 potassium 5.[address] brain: Nonspecific Transvaginal ultrasound: Nonspecific 2-D echocardiogram: EF 60-65% CA 15-3 antigen 61.7. CA 27-29 131.2. CA-125 antigen to 90. Vitamin B12 2362 WBC 11.4 hemoglobin 11.1 platelets 434 sodium 125 potassium 5 BUN 12 creatinine 1.18 ProBNP 1180 albumin 2.3 UA positive for blood, leukoesterase, WBC,'s, squamous epithelial cells Coronavirus [PCR]: Not detected EKG tracing personally reviewed by me-atrial paced rhythm T-wave abnormality Chest x-ray film personally reviewed by [id number] pleural effusion Abdominal ultrasound: Small amount of ascites Investigations from the outside hospital: Hemoglobin 10.8 platelets 332 hepatitis screen for A, B, and C negative creatinine 0.79 CEA: 63 mL and 19-9:15 IgM and IgG: Low Antinuclear antibody, echocardiogram antibody, smooth muscle antibody all negative Assessment and plan: -Acute on chronic medical debility from adenocarcinoma/malignancy the primary is not known, progressive. 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 Workup in place -Secondary ascites likely from peritoneal seeding from adenocarcinoma. Paracentesis-4 L -Hyponatremia, slow to respond Fluid restriction to 15 00mL a. Low-salt diet. -Depression not otherwise specified Continue Lexapro -Persistent atrial fibrillation, with a pacemaker On sotalol and xarelto -GERD On omeprazole -Hyperlipidemia On Lipitor -Anemia normocytic of chronic disease including that of underlying malignancy Follow H&H -Chronic insomnia from multiple medical problems *Melatonin -Acute kidney injury, ATN, worsening Patient received Lasix. Be followed by nephrology. Looks like intravascular depletion. Getting IV fluids. Lasix discontinued. Started on dopamine drip -Edema likely from hypoalbuminemia, third spacing -Mild protein calorie malnutrition, from decreased oral intake -Iron deficiency anemia -Hypotensive shock, multifactorial: Worsening Patient moved to the ICU. Dopamine and levo fed drip. IV fluids. Discussed with patient. Poor prognosis. Patient is tearful. Patient's at the bedside. He understands the prognosis is guarded. We did recapitulate about what we talked yesterday. Continue supportive care. Patient being followed by certified pest control technician, nephrology, oncology. Care was also discussed with the nurse.
[2020-11-24 20:41] LABS: Glucose,Whole Blood 117 mg/dL (75-99)
[2020-11-24] MEDS: ATORVASTATIN 40 MG TAB PO SCH (21:46)
[2020-11-24] MEDS: SODIUM CHLORIDE 0.9% 1,000 ML IV SCH (21:50)
[2020-11-25] MEDS: NOREPINEPHRINE 4 MG in SODIUM CHLORIDE 0.9% 250 ML IV SCH ×6 (00:29→20:26)
[2020-11-25] MEDS: SODIUM CHLORIDE 0.9% 1,000 ML IV SCH ×2 (06:47→15:42)
[2020-11-25 07:27] LABS: Anisocytosis Moderate; Basophils # (A) 0.1 k/uL (0-0.2); Basophils % (A) 0 %; Eosinophils # (A) 0.1 k/uL (0-0.7); Eosinophils % (A) 0 %; HCT 35.1 % (34.0-46.0); HGB 10.4 gm/dL (11.4-16.0); Hypochromasia Marked; Lymphocytes # (A) 0.4 k/uL (1.0-4.8); Lymphocytes % (A) 2 %; MCH 27.9 pg (25.0-35.0); MCHC 29.7 g/dL (31.0-37.0); MCV 93.7 fL (80.0-100.0); Macrocytosis Slight; Mean Platelet Volume 9.8; Monocytes # (A) 1.6 k/uL (0-1.0); Monocytes % (A) 8 %; Neutrophils # (A) 16.9 k/uL (1.3-7.7); Neutrophils % (A) 88 %; Platelet Count 277 k/uL (150-450); RBC 3.74 m/uL (3.80-5.40); WBC 19.2 k/uL (3.8-10.6)
[2020-11-25] MEDS: PANTOPRAZOLE 40 MG TABLET PO SCH ×2 (08:17→17:50)
[2020-11-25] MEDS: SODIUM BICARBONATE TAB 650 MG TAB PO SCH ×2 (08:17→17:50)
[2020-11-25] MEDS: MIDODRINE 5 MG TAB PO SCH ×3 (08:17→17:50)
[2020-11-25] MEDS: ONDANSETRON 4 MG/2 ML VIAL IVP PRN ×2 (08:18→15:32)
[2020-11-25 09:05] LABS: Crenated RBC Present; Poikilocytosis (M) Present
[2020-11-25] MEDS ORDERED: ALBUMIN HUMAN 5% 500 ML in EMPTY BAG 1 BAG IVPB ONE (10:06)
[2020-11-25] MEDS ORDERED: SODIUM CHLORIDE 0.9% 1,000 ML IV ONE ×2 (10:08→13:40)
--- NOTE | 2020-11-25 10:08 | P.PN ---
Subjective Progress Note Date: 11/25/20 This is a very pleasant 70-year-old female patient who follows with Dr. Daniel as her primary care provider. She has a history of obesity with previous gastric bypass, former smoker, depression, hyperlipidemia, atrial fibrillation anticoagulated with Xarelto, status post permanent pacemaker implantation a pproximately 3 weeks ago at [facility]. She had been having ongoing issues with abdominal discomfort and distention. Apparently there was a paracentesis done at [facility] that was positive for adenocarcinoma. She was in the process of being worked up for that. She came here to the emergency room on 11/18/2020 for abdominal discomfort and weakness. Chest x-ray revealed COPD with basilar infiltrate and small effusion left greater than right. Mild central venous congestion. KUB revealed nonspecific abdomen, again bilateral infiltrates left greater than right. EKG revealed atrial pacing and ventricular sensing. Echocardiogram reveals preserved left ventricular systolic function with e jection fraction 6065%. There is questionable vegetation on the tricuspid valve. Abdominal ultrasound revealed a small amount of ascites. Transvaginal ultrasound revealed no endometrial mass. No adnexal mass. Some fluid from the ascites. Computed tomography scan of the brain revealed a focal 1 cm area of hypodensity in the subcortical lateral right frontal lobe which could be chronic changes versus a metastatic lesion. This was a noncontrast CAT scan. Ultrasound of the kidneys revealed no significant hydronephrosis. She did develop more ascites and on 11/21/2020 she had undergone an ultrasound-guided paracentesis with 4 L of straw-colored fluid removed. Pathology is pending. She has had a poor appetite with the ongoing abdominal pain and discomfort. Developing protein calorie malnutrition. Surgery was consulted for possible Dobbhoff placement however due to her gastric bypass surgery there is no stomach reservoir and unable to pass the tube. This morning the patient developed hypotension with blood pressures 60-70 systolic. She had been Midodrine the last 3 days. She was transferred to the intensive care unit on this consultation was requested. She is seen in the ICU. She had been on midodrine the past 3 days. She is currently awake and alert. She has some slurred speech. She was also having issues with hypoglycemia. She is pale. White count 14.4. Hemoglobin 9.1. Platelets 404. Sodium 125. Potassium 5.0. Bicarb 20. BUN 39. Creatinine 2.88. Follow-up glucose 1:30. Albumin 1.6. CA 153 is 61.7. CA 2729 is 131. CA 125 is 290. Cortisol level 22.0 two days ago. She is currently receiving fluid resuscitation. 11/25/2020 the patient is being seen for a follow-up. 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 The patient had malignant ascites. She is post large volume paracentesis. She got transferred to the intensive care unit as the patient was running a lower blood pressure. She was also in acute kidney injury. Overnight, the patient was given IV fluids patient still running with IV fluids in the form of normal saline at the rate of 100 mL an hour. She received 25% albumin doses yesterday. She is unfortunately not producing any urine output. Electrodes from today are still pending. It was quite difficult to obtain any labs from her. For that reason, I had to establish triple-lumen catheter in her right subclavian vein. Currently she is on norepinephrine infusion which is running at 0.13 mcg/kg per minute. His diffusing in her right upper extremity. Right extremity is a bit swollen cold and cyanotic. The medications of is not extravasated. She has diminished pulses in all 4 extremities. White cell count is at 19.2 with a hemoglobin of 10.4. Her sodium count from yesterday was 128. Was given empiric antibiotic coverage with IV ceftriaxone. Cultures were sent. Results are still pending for now. Meanwhile, she remains on normal saline infusion at the rate of 100 mL an hour. Nephrology is on the case. Objective - Vital Signs Vital signs: Vital Signs Temp 97.9 F 11/25/20 08:00 Pulse 70 11/25/20 09:00 Resp 12 11/25/20 09:00 BP 87/58 11/25/20 09:00 Pulse Ox 91 L 11/25/20 08:00 Intake & Output 11/24/20 11/25/20 11/25/20 18:59 06:59 18:59 Intake Total 9760.133 8366.544 322.883 Output Total 5 0 5 Balance 8008.554 2715.544 317.883 Weight 95 kg 107 kg Intake: IV 700 100 200 Dextrose 5% in Water 1, 700 100 000 ml @ 100 mls/hr IV . [id number] [facility] with Sodium Bicarb (1 Meq/ml) 150 ml Rx#:[id number] Sodium Chloride 0.9% 1, 200 000 ml @ 100 mls/hr IV . Q10H [facility] Rx#:[id number] Intake, IV Titration 004.626 5675.544 122.883 Amount Albumin Human 5% 500 ml 500 In Empty Bag 1 bag @ 500 mls/hr IVPB ONCE ONE Rx#: [id number] Norepinephrine 4 mg In 75.769 898.544 122.883 Sodium Chloride 0.9% 250 ml @ 0.05 MCG/KG/MIN 18. 098 mls/hr IV .Q14H3M [facility] Rx#:[id number] Sodium Chloride 0.9% 1, 300 000 ml @ 100 mls/hr IV . Q10H [facility] Rx#:[id number] Oral 100 Output: Urine 5 0 5 Other: Voiding Method Indwelling Catheter Indwelling Catheter Indwelling Catheter - Exam GENERAL EXAM: Alert, pleasant 70-year-old obese female, on 5 L nasal cannula, O2 saturation 98%, uncomfortable due to abdominal discomfort. HEAD: Normocephalic. EYES: Normal reaction of pupils, equal size. NOSE: Clear with pink turbinates. THROAT: No erythema or exudates. NECK: No masses, no JVD. CHEST: No chest wall deformity. LUNGS: Equal air entry with faint crackles in the posterior bases, left greater than right. CVS: S1 and S2 normal with no audible murmur, regular rhythm. ABDOMEN: Distended, tender to palpation, normal bowel sounds, no guarding or rigidity. SPINE: No scoliosis or deformity SKIN: No rashes CENTRAL NERVOUS SYSTEM: No focal deficits, tone is normal in all 4 extremities. EXTREMITIES: There is trace peripheral edema. No clubbing, there is some cyanosis in the fingers bilaterally in the toes bilaterally.. Peripheral pulses are quite diminished especially in the right upper extremity. The right arm is cold probably from infusion of vasopressors. Pulses cannot be accurately palpated. - Labs CBC & Chem 7: 11/25/20 06:29 11/24/20 17:10 Labs: Abnormal Lab Results - Last 24 Hours (Table) 11/24/20 11/24/20 11/24/20 Range/Units 09:43 09:43 09:45 WBC 14.4 H (3.8-10.6) k/uL RBC 3.31 L (3.80-5.40) m/uL Hgb 9.1 L (11.4-16.0) gm/dL Hct 30.0 L (34.0-46.0) % MCHC 30.4 L (31.0-37.0) g/dL RDW 20.4 H (11.5-15.5) % Neutrophils # 13.0 H (1.3-7.7) k/uL Lymphocytes # 0.4 L (1.0-4.8) k/uL Monocytes # (0-1.0) k/uL Sodium 125 L (137-145) mmol/L Chloride 96 L (98-107) mmol/L Carbon Dioxide 20 L (22-30) mmol/L BUN 39 H (7-17) mg/dL Creatinine 2.88 H (0.52-1.04) mg/dL Glucose (74-99) mg/dL POC Glucose (mg/dL) (75-99) mg/dL Calcium 7.2 L (8.4-10.2) mg/dL Phosphorus 6.1 H (2.5-4.5) mg/dL AST 49 H (14-36) U/L Total Protein 3.3 L (6.3-8.2) g/dL Albumin 1.6 L (3.5-5.0) g/dL 11/24/20 11/24/20 11/24/20 Range/Units 10:19 10:44 10:46 WBC (3.8-10.6) k/uL RBC (3.80-5.40) m/uL Hgb (11.4-16.0) gm/dL Hct (34.0-46.0) % MCHC (31.0-37.0) g/dL RDW (11.5-15.5) % Neutrophils # (1.3-7.7) k/uL Lymphocytes # (1.0-4.8) k/uL Monocytes # (0-1.0) k/uL Sodium (137-145) mmol/L Chloride (98-107) mmol/L Carbon Dioxide (22-30) mmol/L BUN (7-17) mg/dL Creatinine (0.52-1.04) mg/dL Glucose (74-99) mg/dL POC Glucose (mg/dL) 69 L <20 L 56 L (75-99) mg/dL Calcium (8.4-10.2) mg/dL Phosphorus (2.5-4.5) mg/dL AST (14-36) U/L Total Protein (6.3-8.2) g/dL Albumin (3.5-5.0) g/dL 11/24/20 11/24/20 11/24/20 Range/Units 11:01 12:29 12:45 WBC (3.8-10.6) k/uL RBC (3.80-5.40) m/uL Hgb (11.4-16.0) gm/dL Hct (34.0-46.0) % MCHC (31.0-37.0) g/dL RDW (11.5-15.5) % Neutrophils # (1.3-7.7) k/uL Lymphocytes # (1.0-4.8) k/uL Monocytes # (0-1.0) k/uL Sodium (137-145) mmol/L Chloride (98-107) mmol/L Carbon Dioxide (22-30) mmol/L BUN (7-17) mg/dL Creatinine (0.52-1.04) mg/dL Glucose (74-99) mg/dL POC Glucose (mg/dL) 130 H 53 L 149 H (75-99) mg/dL Calcium (8.4-10.2) mg/dL Phosphorus (2.5-4.5) mg/dL AST (14-36) U/L Total Protein (6.3-8.2) g/dL Albumin (3.5-5.0) g/dL 11/24/20 11/24/20 11/25/20 Range/Units 17:10 20:40 06:29 WBC 19.2 H (3.8-10.6) k/uL RBC 3.74 L (3.80-5.40) m/uL Hgb 10.4 L (11.4-16.0) gm/dL Hct (34.0-46.0) % MCHC 29.7 L (31.0-37.0) g/dL RDW 20.0 H (11.5-15.5) % Neutrophils # 16.9 H (1.3-7.7) k/uL Lymphocytes # 0.4 L (1.0-4.8) k/uL Monocytes # 1.6 H (0-1.0) k/uL Sodium 128 L (137-145) mmol/L Chloride 93 L (98-107) mmol/L Carbon Dioxide (22-30) mmol/L BUN 39 H (7-17) mg/dL Creatinine 3.11 H (0.52-1.04) mg/dL Glucose 118 H (74-99) mg/dL POC Glucose (mg/dL) 117 H (75-99) mg/dL Calcium 7.5 L (8.4-10.2) mg/dL Phosphorus (2.5-4.5) mg/dL AST (14-36) U/L Total Protein (6.3-8.2) g/dL Albumin (3.5-5.0) g/dL Microbiology - Last 24 Hours (Table) 11/21/20 10:45 Gram Stain - Final Ascites Fluid Body Fluid Culture - Final Assessment and Plan Plan: 1 Acute hypotension suspect secondary to hypo-albuminemia, dehydration.. The patient appears to be hypotensive and the patient is currently pressor d ependent. An underlying septic component cannot be completely ruled out. Tach on is on the rise and currently is up to 19. The patient remains hypotensive and the pressor doses have been modified and the patient is running at a higher dose of norepinephrine infusion at 0.12 mcg/kg per minute and the urine output is quite diminished and the patient continues to be in renal failure. 2 Adenocarcinoma of an unknown primary. Consideration is being given for GI source of adenocarcinoma or urothelial/bladder. Breast and ovaries are felt to be less likely based on the pathologic evaluation that was done on the acetate fluids.. Note that the CAT scan of the chest abdomen and pelvis that was done at [facility], revealed no indication of any primary source for malignancy. 3 Abdominal ascites status post second paracentesis done here with 4 L of straw- colored fluid removed, pathology pending 4 Generalized weakness, poor appetite, fatigue secondary to above 5 Acute kidney injury secondary to hypotension, current creatinine 2.88 from yesterday and the follow-up labs are still pending for now 6 Acute hypoxemic respiratory failure secondary to left pleural effusion 7 Atrial fibrillation status post permanent pacemaker implantation approximately 3 weeks ago at [facility], anticoagulated with Xarelto 8 Hyponatremia, current sodium 125 9 Anemia, current hemoglobin 9.1 10 Hypoalbuminemia, current albumin 1.6 11 Obesity with previous history of gastric bypass 12 Hyperlipidemia 13 Depression Plan: Triple-lumen catheter was established Establish a CVP pressures We will bolus the patient with another 5% albumin my 2, in addition to a normal saline 1 L bolus, and monitor urine output. Nephrology is on the case. Awaiting labs from today Continue vasopressors Anticoagulated with Xarelto Awaiting full calcitonin level This patient to IV Zosyn and Rocephin for now, pending cultures Oncology workup ongoing Titrate the FiO2 as tolerated Continue close monitoring here in the ICU We will continue to follow and make further recommendations based on her cli nical status extremely poor based on presence of metastatic adenocarcinoma with secondary ascites and
--- NOTE | 2020-11-25 10:10 | P.PCN ---
Date of Procedure: 11/25/20 Preoperative Diagnosis: Acute hypotension, shock Postoperative Diagnosis: Acute hypotension, shock Procedure(s) Performed: central line insertion Anesthesia: local Surgeon: Rosalina Shea Estimated Blood Loss (ml): 0 Pathology: other Condition: critical Disposition: ICU Operative Findings: Indication: Hemodynamic monitoring/Intravenous access. A time-out was completed verifying correct patient, procedure, site, positioning, and implant(s) or special equipment if applicable. The patient was placed in a dependent position appropriate for central line placement based on the vein to be cannulated. The patients right shoulder was prepped and draped in sterile fashion. 1% Lidocaine was used to anesthetize the surrounding skin area. A triple lumen 9F Cordis catheter was introduced into the right subclavian vein using Seldinger technique. The catheter was threaded smoothly over the guide wire and appropriate blood return was obtained. Each lumen of the catheter was evacuated of air and flushed with sterile saline. The catheter was then sutured in place to the skin and a sterile dressing applied. Perfusion to the extremity distal to the point of catheter insertion was checked and found to be adequate. The patient tolerated the procedure well and there were no complications.
[2020-11-25] MEDS: SOTALOL 120 MG TAB PO SCH (10:21)
[2020-11-25] MEDS: PIPERACILLIN-TAZOBACTAM 3.375 GM in SODIUM CHLORIDE 0.9% 100 ML IVPB SCH ×2 (10:28→20:26)
--- NOTE | 2020-11-25 10:29 | XR ---
EXAMINATION TYPE: XR chest 1V portable DATE OF EXAM: 11/25/2020 COMPARISON: 11/23/2020 HISTORY: Central line placement TECHNIQUE: Single frontal view of the chest is obtained. FINDINGS: Right-sided central line seen with the tip overlying the right atrium. No sizable pneumoth orax. Bilateral infiltrate and pleural effusion. Heart size normal. Cardiac device noted. Atheroscler otic change aorta. Hyperinflation suggests COPD. IMPRESSION: 1. Central line seen overlying the right atrium with no sizable pneumothorax. 2. COPD with bilateral infiltrate and small effusion.
--- NOTE | 2020-11-25 10:54 | P.PN ---
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 She's undergoing oncology workup. Patient required to be transferred to the ICU on 11/24/2020 due to hypotension. She is currently on norepinephrine. She is receiving another dose of IV albumin. Afebrile. WBC 19.2 hemoglobin 10.4 Patient seen and examined with Dr. kelly PHYSICAL EXAM: VITAL SIGNS: Reviewed. GENERAL: Well-developed in no acute distress. HEENT: No sclera icterus. Extraocular movements grossly intact. Moist buccal mucosa. Head is atraumatic, normocephalic. ABDOMEN: Soft. Nondistended. Nontender. NEUROLOGIC: Alert and oriented. Cranial nerves II through XII grossly intact. ASSESSMENT: 1. Metastatic Adenocarcinoma diagnosed from peritoneal fluid. Primary unknown 2. Severe protein calorie malnutrition 3. 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 Signing provider agrees with the documented findings, assessment, and plan of care. Objective - Vital Signs Vital signs: Vital Signs Temp 97.9 F 11/25/20 08:00 Pulse 70 11/25/20 09:00 Resp 12 11/25/20 09:00 BP 87/58 11/25/20 09:00 Pulse Ox 91 L 11/25/20 08:00 Intake & Output 11/24/20 11/25/20 11/25/20 18:59 06:59 18:59 Intake Total 2677.193 0869.544 322.883 Output Total 5 0 5 Balance 7144.021 5024.544 317.883 Weight 95 kg 107 kg Intake: IV 700 100 200 Dextrose 5% in Water 1, 700 100 000 ml @ 100 mls/hr IV . [id number] [facility] with Sodium Bicarb (1 Meq/ml) 150 ml Rx#:[id number] Sodium Chloride 0.9% 1, 200 000 ml @ 100 mls/hr IV . Q10H [facility] Rx#:[id number] Intake, IV Titration 928.936 7655.544 122.883 Amount Albumin Human 5% 500 ml 500 In Empty Bag 1 bag @ 500 mls/hr IVPB ONCE ONE Rx#: [id number] Norepinephrine 4 mg In 75.769 898.544 122.883 Sodium Chloride 0.9% 250 ml @ 0.05 MCG/KG/MIN 18. 098 mls/hr IV .Q14H3M [facility] Rx#:[id number] Sodium Chloride 0.9% 1, 300 000 ml @ 100 mls/hr IV . Q10H [facility] Rx#:[id number] Oral 100 Output: Urine 5 0 5 Other: Voiding Method Indwelling Catheter Indwelling Catheter Indwelling Catheter - Labs CBC & Chem 7: 11/25/20 06:29 11/24/20 17:10 Labs: Abnormal Lab Results - Last 24 Hours (Table) 11/24/20 11/24/20 11/24/20 Range/Units 09:43 09:45 10:46 WBC 14.4 H (3.8-10.6) k/uL RBC 3.31 L (3.80-5.40) m/uL Hgb 9.1 L (11.4-16.0) gm/dL Hct 30.0 L (34.0-46.0) % MCHC 30.4 L (31.0-37.0) g/dL RDW 20.4 H (11.5-15.5) % Neutrophils # 13.0 H (1.3-7.7) k/uL Lymphocytes # 0.4 L (1.0-4.8) k/uL Monocytes # (0-1.0) k/uL Sodium (137-145) mmol/L Chloride (98-107) mmol/L BUN (7-17) mg/dL Creatinine (0.52-1.04) mg/dL Glucose (74-99) mg/dL POC Glucose (mg/dL) 56 L (75-99) mg/dL Calcium (8.4-10.2) mg/dL Phosphorus 6.1 H (2.5-4.5) mg/dL 11/24/20 11/24/20 11/24/20 Range/Units 11:01 12:29 12:45 WBC (3.8-10.6) k/uL RBC (3.80-5.40) m/uL Hgb (11.4-16.0) gm/dL Hct (34.0-46.0) % MCHC (31.0-37.0) g/dL RDW (11.5-15.5) % Neutrophils # (1.3-7.7) k/uL Lymphocytes # (1.0-4.8) k/uL Monocytes # (0-1.0) k/uL Sodium (137-145) mmol/L Chloride (98-107) mmol/L BUN (7-17) mg/dL Creatinine (0.52-1.04) mg/dL Glucose (74-99) mg/dL POC Glucose (mg/dL) 130 H 53 L 149 H (75-99) mg/dL Calcium (8.4-10.2) mg/dL Phosphorus (2.5-4.5) mg/dL 11/24/20 11/24/20 11/25/20 Range/Units 17:10 20:40 06:29 WBC 19.2 H (3.8-10.6) k/uL RBC 3.74 L (3.80-5.40) m/uL Hgb 10.4 L (11.4-16.0) gm/dL Hct (34.0-46.0) % MCHC 29.7 L (31.0-37.0) g/dL RDW 20.0 H (11.5-15.5) % Neutrophils # 16.9 H (1.3-7.7) k/uL Lymphocytes # 0.4 L (1.0-4.8) k/uL Monocytes # 1.6 H (0-1.0) k/uL Sodium 128 L (137-145) mmol/L Chloride 93 L (98-107) mmol/L BUN 39 H (7-17) mg/dL Creatinine 3.11 H (0.52-1.04) mg/dL Glucose 118 H (74-99) mg/dL POC Glucose (mg/dL) 117 H (75-99) mg/dL Calcium 7.5 L (8.4-10.2) mg/dL Phosphorus (2.5-4.5) mg/dL Microbiology - Last 24 Hours (Table) 11/21/20 10:45 Gram Stain - Final Ascites Fluid Body Fluid Culture - Final
[2020-11-25 11:33] LABS: Calcium 6.4 mg/dL (8.4-10.2)
--- NOTE | 2020-11-25 11:36 | PN ---
PROGRESS NOTE Patient is seen for followup for acute kidney injury mostly secondary to hypotension. Urine output has been poor. Patient is maintained on IV fluids. She was started on Levophed as well yesterday. Currently running at 0.13 mcg/kg per minute. Patient was recently diagnosed with adenocarcinoma of unknown primary origin with peritoneal METS. She has had ascites for which she had paracentesis done. Blood pressure had been running on the lower side and she has not had significant urine output. Renal replacement therapy has been discussed with the patient and she is agreeable to start dialysis when indicated. So far, she is not significantly hyperkalemic or acidotic. This morning patient is complaining of pain in her right hand at the site of the IV. A central line will be placed for infusion of Levophed today. No complaints of chest pains or shortness of breath. PHYSICAL EXAMINATION: On examination today, blood pressure 112/52, heart rate 70 per minute, she is afebrile. Examination of the heart S1, S2. Examination of the lungs, decreased breath sounds at bases. Abdomen is soft, nontender, obese. Examination of lower extremities shows no significant edema. 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 She is moving all 4 extremities. LABS: Show hemoglobin 10.4, sodium 128, potassium 4.5, chloride 93, BUN 39, serum creatinine 3.1. ASSESSMENT: 1. Acute kidney injury mostly acute tubular necrosis, severely oliguric. No evidence of obstruction on the ultrasound. UA does show some protein and blood. The patient will be started on dialysis in the next 24-48 hours since she has not had any significant urine output. Consider kidney biopsy down the road if no improvement in renal function. I will order a set of serologies, although this is most likely acute tubular necrosis. 2. Newly diagnosed metastatic adenocarcinoma with peritoneal METS and malignant ascites, unknown primary. 3. Hypotension. Component of volume depletion, currently maintained on IV fluids and pressors. No obvious source of infection identified. 4. Atrial fibrillation with history of permanent pacemaker placement. Recently at [facility], maintained on anticoagulation. 5. Metabolic acidosis associated with renal failure, status post bicarb drip. 6. Hyponatremia, currently euvolemic etiology renal failure. The patient was initially hypovolemic and has received IV fluid resuscitation. The labs are pending from today. Continue with normal saline for now. MMODL / IJN: [id number] /
[2020-11-25 12:03] LABS: Glucose,Whole Blood 103 mg/dL (75-99)
[2020-11-25] MEDS: fentaNYL (PF) 50 MCG/ML 2 ML AMP IVP PRN ×3 (12:59→22:12)
[2020-11-25 13:19] VITALS: BMI 36.9
[2020-11-25 14:38] LABS: Ionized Calcium 3.9 mg/dL (4.5-5.3)
[2020-11-25] MEDS: RIVAROXABAN 15 MG TAB PO SCH (17:50)
[2020-11-25] MEDS ORDERED: ONDANSETRON 4 MG/2 ML VIAL IVP PRN (19:47)
[2020-11-25] MEDS: ACETAMINOPHEN TAB 500 MG TAB PO PRN (20:25)
[2020-11-25] MEDS: ATORVASTATIN 40 MG TAB PO SCH (20:25)
[2020-11-25] MEDS: HYDROmorphone 1 MG/ML 1 ML SYRINGE IVP PRN (22:44)
[2020-11-26] MEDS: SOTALOL 120 MG TAB PO SCH ×2 (00:10→09:00)
[2020-11-26] MEDS: SODIUM BICARBONATE TAB 650 MG TAB PO SCH ×2 (00:10→09:00)
[2020-11-26] MEDS: NOREPINEPHRINE 4 MG in SODIUM CHLORIDE 0.9% 250 ML IV SCH ×2 (00:11→03:36)
[2020-11-26] MEDS: SODIUM CHLORIDE 0.9% 1,000 ML IV SCH ×2 (00:12→08:59)
[2020-11-26] MEDS: NOREPINEPHRINE 8 MG in SODIUM CHLORIDE 0.9% 250 ML IV SCH ×2 (05:32→10:14)
[2020-11-26] MEDS: HYDROmorphone 1 MG/ML 1 ML SYRINGE IVP PRN (05:32)
[2020-11-26 06:31] LABS: Anisocytosis Moderate; Hypochromasia Marked; MCH 28.2 pg (25.0-35.0); MCHC 31.1 g/dL (31.0-37.0); MCV 90.5 fL (80.0-100.0); Mean Platelet Volume 8.9; Platelet Count 332 k/uL (150-450); RBC 3.54 m/uL (3.80-5.40); RDW 20.4 % (11.5-15.5); WBC 23.3 k/uL (3.8-10.6)
[2020-11-26 06:55] LABS: Potassium 4.2 mmol/L (3.5-5.1); Total Bilirubin 0.1 mg/dL (0.2-1.3); Total Protein 3.7 g/dL (6.3-8.2)
[2020-11-26 06:58] LABS: Calcium 6.4 mg/dL (8.4-10.2)
[2020-11-26 08:35] VITALS: PULSE 70
--- NOTE | 2020-11-26 08:41 | P.PN ---
Subjective Patient is seen in follow-up for acute kidney injury. Oliguric. Complains of generalized pain. Oral intake is poor. Remains on Levophed. Receiving IV fluids. Vital signs are stable. On vasopressor support. General: The patient appeared well nourished and normally developed. HEENT: Head exam is unremarkable. LUNGS: Breath sounds decreased. HEART: Rate and Rhythm are regular. ABDOMEN: Soft, obese. EXTREMITITES: 1+ edema. Objective - Vital Signs Vital signs: Vital Signs Temp 97.3 F L 11/26/20 08:00 Pulse 70 11/26/20 08:00 Resp 13 11/26/20 08:00 BP 96/72 11/26/20 08:00 Pulse Ox 94 L 11/26/20 08:00 Intake & Output 11/25/20 11/26/20 11/26/20 18:59 06:59 18:59 Intake Total 4858.000 2216.721 256 Output Total 10 10 0 Balance 4848.000 2206.721 256 Weight 107 kg 114.2 kg Intake: IV 4150 1630 256 .9NS CVP 30 6 Albumin Human 5% 500 ml 1000 In Empty Bag 1 bag @ 500 mls/hr IVPB ONCE ONE Rx#: [id number] Piperacillin-Tazobactam 3 100 100 .375 gm In Sodium Chloride 0.9% 100 ml @ 25 mls/hr IVPB Q12HR [facility] Rx #:[id number] Sodium Chloride 0.9% 1, 1050 1500 250 000 ml @ 125 mls/hr IV . Q8H [facility] Rx#:[id number] Sodium Chloride 0.9% 1, 2000 000 ml @ 999 mls/hr IV . Q1H1M [facility] Rx#:[id number] Intake, IV Titration 508.000 586.721 Amount Norepinephrine 4 mg In 508.000 586.721 Sodium Chloride 0.9% 250 ml @ 0.05 MCG/KG/MIN 18. 098 mls/hr IV .Q14H3M [facility] Rx#:[id number] Oral 200 Output: Urine 10 10 0 Other: Voiding Method Indwelling Catheter Indwelling Catheter - Labs CBC & Chem 7: 11/26/20 05:45 11/26/20 05:45 Labs: Abnormal Lab Results - Last 24 Hours (Table) 11/25/20 11/25/20 11/25/20 Range/Units 06:29 11:04 11:04 WBC (3.8-10.6) k/uL RBC (3.80-5.40) m/uL Hgb (11.4-16.0) gm/dL Hct (34.0-46.0) % RDW (11.5-15.5) % Neutrophils # 16.9 H (1.3-7.7) k/uL Lymphocytes # 0.4 L (1.0-4.8) k/uL Monocytes # 1.6 H (0-1.0) k/uL Sodium 129 L (137-145) mmol/L Chloride 97 L (98-107) mmol/L BUN 38 H (7-17) mg/dL Creatinine 3.38 H (0.52-1.04) mg/dL Glucose 117 H (74-99) mg/dL POC Glucose (mg/dL) (75-99) mg/dL Calcium 6.4 L* (8.4-10.2) mg/dL Ionized Calcium Maurice (4.5-5.3) mg/dL Total Bilirubin (0.2-1.3) mg/dL AST (14-36) U/L Total Protein (6.3-8.2) g/dL Albumin (3.5-5.0) g/dL Procalcitonin 3.80 H (0.02-0.09) ng/mL 11/25/20 11/25/20 11/26/20 Range/Units 12:02 13:48 05:45 WBC 23.3 H (3.8-10.6) k/uL RBC 3.54 L (3.80-5.40) m/uL Hgb 10.0 L (11.4-16.0) gm/dL Hct 32.0 L (34.0-46.0) % RDW 20.4 H (11.5-15.5) % Neutrophils # (1.3-7.7) k/uL Lymphocytes # (1.0-4.8) k/uL Monocytes # (0-1.0) k/uL Sodium (137-145) mmol/L Chloride (98-107) mmol/L BUN (7-17) mg/dL Creatinine (0.52-1.04) mg/dL Glucose (74-99) mg/dL POC Glucose (mg/dL) 103 H (75-99) mg/dL Calcium (8.4-10.2) mg/dL Ionized Calcium Maurice 3.9 L (4.5-5.3) mg/dL Total Bilirubin (0.2-1.3) mg/dL AST (14-36) U/L Total Protein (6.3-8.2) g/dL Albumin (3.5-5.0) g/dL Procalcitonin (0.02-0.09) ng/mL 11/26/20 Range/Units 05:45 WBC (3.8-10.6) k/uL RBC (3.80-5.40) m/uL Hgb (11.4-16.0) gm/dL Hct (34.0-46.0) % RDW (11.5-15.5) % Neutrophils # (1.3-7.7) k/uL Lymphocytes # (1.0-4.8) k/uL Monocytes # (0-1.0) k/uL Sodium 130 L (137-145) mmol/L Chloride (98-107) mmol/L BUN 38 H (7-17) mg/dL Creatinine 3.11 H (0.52-1.04) mg/dL Glucose 117 H (74-99) mg/dL POC Glucose (mg/dL) (75-99) mg/dL Calcium 6.4 L* (8.4-10.2) mg/dL Ionized Calcium Maurice (4.5-5.3) mg/dL Total Bilirubin 0.1 L (0.2-1.3) mg/dL AST 45 H (14-36) U/L Total Protein 3.7 L (6.3-8.2) g/dL Albumin 2.0 L (3.5-5.0) g/dL Procalcitonin (0.02-0.09) ng/mL Microbiology - Last 24 Hours (Table) 11/24/20 17:30 Blood Culture - Preliminary Blood No Growth after 24 hours 11/24/20 17:10 Blood Culture - Preliminary Blood No Growth after 24 hours 11/21/20 10:45 Gram Stain - Final Ascites Fluid Body Fluid Culture - Final Assessment and Plan Plan: Assessment: 1. Acute kidney injury secondary to ATN secondary to hypotension. Renal function slightly better. Creatinine 3.11 today. Remains oliguric. No evidence of hydronephrosis. 2. Hyponatremia secondary to acute kidney injury. 3. Metabolic acidosis secondary to acute kidney injury. Maintained on oral bicarbonate. 4. Recently diagnosed adenocarcinoma with unknown primary. 5. Ascites. Status post paracentesis. Plan: Maintain IV fluids. Wean Levophed. With no improvement in renal function and oliguria, initiate renal replacement therapy. Consult vascular surgery for dialysis catheter placement. Plan for first treatment of hemodialysis today. Continue to monitor renal function and urine output. Replace calcium.
[2020-11-26] MEDS: PIPERACILLIN-TAZOBACTAM 3.375 GM in SODIUM CHLORIDE 0.9% 100 ML IVPB SCH (08:59)
[2020-11-26] MEDS: PANTOPRAZOLE 40 MG TABLET PO SCH (08:59)
[2020-11-26] MEDS: MIDODRINE 5 MG TAB PO SCH (08:59)
[2020-11-26] MEDS ORDERED: CALCIUM GLUCONATE 1 GM in SODIUM CHLORIDE 0.9% 100 ML IVPB ONE (09:00)
--- NOTE | 2020-11-26 09:40 | P.PN ---
Subjective Progress Note Date: 11/26/20 This is a very pleasant 70-year-old female patient who follows with Dr. Daniel as her primary care provider. She has a history of obesity with previous gastric bypass, former smoker, depression, hyperlipidemia, atrial fibrillation anticoagulated with Xarelto, status post permanent pacemaker implantation a pproximately 3 weeks ago at [facility]. She had been having ongoing issues with abdominal discomfort and distention. Apparently there was a paracentesis done at [place] that was positive for adenocarcinoma. She was in the process of being worked up for that. She came here to the emergency room on 11/18/2020 for abdominal discomfort and weakness. Chest x-ray revealed COPD with basilar infiltrate and small effusion left greater than right. Mild central venous congestion. KUB revealed nonspecific abdomen, again bilateral infiltrates left greater than right. EKG revealed atrial pacing and ventricular sensing. Echocardiogram reveals preserved left ventricular systolic function with e jection fraction 6065%. There is questionable vegetation on the tricuspid valve. Abdominal ultrasound revealed a small amount of ascites. Transvaginal ultrasound revealed no endometrial mass. No adnexal mass. Some fluid from the ascites. Computed tomography scan of the brain revealed a focal 1 cm area of hypodensity in the subcortical lateral right frontal lobe which could be chronic changes versus a metastatic lesion. This was a noncontrast CAT scan. Ultrasound of the kidneys revealed no significant hydronephrosis. She did develop more ascites and on 11/21/2020 she had undergone an ultrasound-guided paracentesis with 4 L of straw-colored fluid removed. Pathology is pending. She has had a poor appetite with the ongoing abdominal pain and discomfort. Developing protein calorie malnutrition. Surgery was consulted for possible Dobbhoff placement however due to her gastric bypass surgery there is no stomach reservoir and unable to pass the tube. This morning the patient developed hypotension with blood pressures 60-70 systolic. She had been Midodrine the last 3 days. She was transferred to the intensive care unit on this consultation was requested. She is seen in the ICU. She had been on midodrine the past 3 days. She is currently awake and alert. She has some slurred speech. She was also having issues with hypoglycemia. She is pale. White count 14.4. Hemoglobin 9.1. Platelets 404. Sodium 125. Potassium 5.0. Bicarb 20. BUN 39. Creatinine 2.88. Follow-up glucose 1:30. Albumin 1.6. CA 153 is 61.7. CA 2729 is 131. CA 125 is 290. Cortisol level 22.0 two days ago. She is currently receiving fluid resuscitation. 11/25/2020 the patient is being seen for a follow-up. 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 The patient had malignant ascites. She is post large volume paracentesis. She got transferred to the intensive care unit as the patient was running a lower blood pressure. She was also in acute kidney injury. Overnight, the patient was given IV fluids patient still running with IV fluids in the form of normal saline at the rate of 100 mL an hour. She received 25% albumin doses yesterday. She is unfortunately not producing any urine output. Electrodes from today are still pending. It was quite difficult to obtain any labs from her. For that reason, I had to establish triple-lumen catheter in her right subclavian vein. Currently she is on norepinephrine infusion which is running at 0.13 mcg/kg per minute. His diffusing in her right upper extremity. Right extremity is a bit swollen cold and cyanotic. The medications of is not extravasated. She has diminished pulses in all 4 extremities. White cell count is at 19.2 with a hemoglobin of 10.4. Her sodium count from yesterday was 128. Was given empiric antibiotic coverage with IV ceftriaxone. Cultures were sent. Results are still pending for now. Meanwhile, she remains on normal saline infusion at the rate of 100 mL an hour. Nephrology is on the case. 11/26/2020, condition is essentially poor and the patient is doing poorly. She is lethargic. She is complaining of ongoing abdominal pain which is rather diffuse despite having a very soft abdomen without any significant ascites. As such, the patient was given a combination of painkillers including fentanyl and Dilaudid. Dilaudid this morning made her quite lethargic. There was concern that she may be having some respiratory suppression. The dose was reduced down to 0.5 mg and the frequency every also adjusted depending on her level of consciousness. I saw awake and alert. She was able to communicate. She was very cold and clammy and hypoperfusing and she's been on norepinephrine infusion running at 0.22 mg/kg/m. The right hand is cold and the fingers are somewhat cyanotic. Pulses are diminished in all 4 extremities specially in the feet. The patient has a triple-lumen catheter in her right subclavian. Urine output is essentially none and the patient continues to be in a positive fluid balance of a positive 7 liters over the past 24 hours. Creatinine is at 3.11 on today's evaluation the rest of the electrolytes are stable. Calcium levels were low and ionized calcium level was down to 3.5 and the patient was given 1 g of calcium gluconate by nephrology. The patient has extremely poor appetite. She is unable to eat. Her pro-calcitonin level is still elevated. Cultures of been sent and the results are still pending for now. She is lethargic. She is weak. She is debilitated. She is getting progressively more hypo-no rashes. Her albumin level is at 1.6.. The patient remains on IV fluids which is running at 125 mL an hour is on antibiotics and have covered her with IV Zosyn. Objective - Vital Signs Vital signs: Vital Signs Temp 97.3 F L 11/26/20 08:00 Pulse 70 11/26/20 09:00 Resp 12 11/26/20 09:00 BP 107/71 11/26/20 09:00 Pulse Ox 99 11/26/20 09:00 Intake & Output 11/25/20 11/26/20 11/26/20 18:59 06:59 18:59 Intake Total 4858.000 2216.721 584 Output Total 10 10 0 Balance 4848.000 2206.721 584 Weight 107 kg 114.2 kg Intake: IV 4150 1630 584 .9NS CVP 30 9 Albumin Human 5% 500 ml 1000 In Empty Bag 1 bag @ 500 mls/hr IVPB ONCE ONE Rx#: [id number] Calcium Gluconate 1 gm In 100 Sodium Chloride 0.9% 100 ml @ 100 mls/hr IVPB ONCE ONE Rx#:[id number] Piperacillin-Tazobactam 3 100 100 100 .375 gm In Sodium Chloride 0.9% 100 ml @ 25 mls/hr IVPB Q12HR [facility] Rx #:[id number] Sodium Chloride 0.9% 1, 1050 1500 375 000 ml @ 125 mls/hr IV . Q8H [facility] Rx#:[id number] Sodium Chloride 0.9% 1, 2000 000 ml @ 999 mls/hr IV . Q1H1M [facility] Rx#:[id number] Intake, IV Titration 508.000 586.721 Amount Norepinephrine 4 mg In 508.000 586.721 Sodium Chloride 0.9% 250 ml @ 0.05 MCG/KG/MIN 18. 098 mls/hr IV .Q14H3M [facility] Rx#:[id number] Oral 200 Output: Urine 10 10 0 Other: Voiding Method Indwelling Catheter Indwelling Catheter Indwelling Catheter - Exam GENERAL EXAM: Alert, pleasant 70-year-old obese female, on 5 L nasal cannula, O2 saturation 98%, uncomfortable due to abdominal discomfort. HEAD: Normocephalic. EYES: Normal reaction of pupils, equal size. NOSE: Clear with pink turbinates. THROAT: No erythema or exudates. NECK: No masses, no JVD. CHEST: No chest wall deformity. LUNGS: Equal air entry with faint crackles in the posterior bases, left greater than right. CVS: S1 and S2 normal with no audible murmur, regular rhythm. ABDOMEN: Distended, tender to palpation, normal bowel sounds, no guarding or rigidity. SPINE: No scoliosis or deformity SKIN: No rashes CENTRAL NERVOUS SYSTEM: No focal deficits, tone is normal in all 4 extremities. EXTREMITIES: There is trace peripheral edema. No clubbing, there is some cyanosis in the fingers bilaterally in the toes bilaterally.. Peripheral pulses are quite diminished especially in the right upper extremity. The right arm is cold probably from infusion of vasopressors. Pulses cannot be accurately palpated.patient continues to be cold and cyanotic fingers and toes bilaterally worse in the right upper extremity. - Labs CBC & Chem 7: 11/26/20 05:45 11/26/20 05:45 Labs: Abnormal Lab Results - Last 24 Hours (Table) 11/25/20 11/25/20 11/25/20 Range/Units 11:04 11:04 12:02 WBC (3.8-10.6) k/uL RBC (3.80-5.40) m/uL Hgb (11.4-16.0) gm/dL Hct (34.0-46.0) % RDW (11.5-15.5) % Sodium 129 L (137-145) mmol/L Chloride 97 L (98-107) mmol/L BUN 38 H (7-17) mg/dL Creatinine 3.38 H (0.52-1.04) mg/dL Glucose 117 H (74-99) mg/dL POC Glucose (mg/dL) 103 H (75-99) mg/dL Calcium 6.4 L* (8.4-10.2) mg/dL Ionized Calcium Maurice (4.5-5.3) mg/dL Total Bilirubin (0.2-1.3) mg/dL AST (14-36) U/L Total Protein (6.3-8.2) g/dL Albumin (3.5-5.0) g/dL Procalcitonin 3.80 H (0.02-0.09) ng/mL 11/25/20 11/26/20 11/26/20 Range/Units 13:48 05:45 05:45 WBC 23.3 H (3.8-10.6) k/uL RBC 3.54 L (3.80-5.40) m/uL Hgb 10.0 L (11.4-16.0) gm/dL Hct 32.0 L (34.0-46.0) % RDW 20.4 H (11.5-15.5) % Sodium 130 L (137-145) mmol/L Chloride (98-107) mmol/L BUN 38 H (7-17) mg/dL Creatinine 3.11 H (0.52-1.04) mg/dL Glucose 117 H (74-99) mg/dL POC Glucose (mg/dL) (75-99) mg/dL Calcium 6.4 L* (8.4-10.2) mg/dL Ionized Calcium Maurice 3.9 L (4.5-5.3) mg/dL Total Bilirubin 0.1 L (0.2-1.3) mg/dL AST 45 H (14-36) U/L Total Protein 3.7 L (6.3-8.2) g/dL Albumin 2.0 L (3.5-5.0) g/dL Procalcitonin (0.02-0.09) ng/mL Microbiology - Last 24 Hours (Table) 11/24/20 17:30 Blood Culture - Preliminary Blood No Growth after 24 hours 11/24/20 17:10 Blood Culture - Preliminary Blood No Growth after 24 hours 11/21/20 10:45 Gram Stain - Final Ascites Fluid Body Fluid Culture - Final Assessment and Plan Plan: 1 Acute hypotension she is thought to be hypovolemic and sequently there was a concern that she may be getting septic as the patient's white cell count is on the rise. She has not responded to fluids. The patient has developed an acute kidney injury and currently she is anorexic. Patient is also on high-dose pressors, cyanotic digits and fingers and toes, hypoperfusing, covered with pressors and antibiotics. Echocardiogram showed a preserved LV function. Doesn't have any underlying cardiomyopathy. 2 Adenocarcinoma of an unknown primary. Consideration is being given for GI source of adenocarcinoma or urothelial/bladder. Breast and ovaries are felt to be less likely based on the pathologic evaluation that was done on the acetate fluids.. Note that the CAT scan of the chest abdomen and pelvis that was done at [facility], revealed no indication of any primary source for malignancy.the patient has advanced malignancy. Tumor markers are obviously positive. There is a concern for a GI source of malignancy although this could not be identified on the CAT scan of the chest abdomen and pelvis. Her vague diffuse abdominal pain covered with Dilaudid. Unable to tolerate any oral intake because of a poor appetite. 3 Abdominal ascites status post second paracentesis done here with 4 L of straw- colored fluid removed, pathology pending 4 Generalized weakness, poor appetite, fatigue secondary to above 5 Acute kidney injury secondary to hypotension/ATN and the patient is an aortic and this point in time, creatinine is at 3.11 6 Acute hypoxemic respiratory failure secondary to left pleural effusion 7 Atrial fibrillation status post permanent pacemaker implantation approximately 3 weeks ago at [facility], anticoagulated with Xarelto 8 Hyponatremia, current sodium 130 9 Anemia, current hemoglobin 10 10 Hypoalbuminemia, current albumin 1.6, along with a component of hypocalcemia with a low ionized calcium of 3.9 11 Obesity with previous history of gastric bypass 12 Hyperlipidemia 13 Depression Plan: Continue vasopressors continue antibiotics Pain control Replace calcium Diagnoses being considered by nephrology Anticoagulated with Xarelto, I recommend holding Xarelto in preparation for a dialysis catheter insertion and her heart rhythm is currently paced at 70 Oncology workup ongoing Titrate the FiO2 as tolerated Continue close monitoring here in the ICU We will continue to follow and make further recommendations based on her clinical status extremely poor based on presence of metastatic adenocarcinoma with secondary ascites in obviously a CODE STATUS change needs to be done as the patient's prognosis extremely poor with no chance of cure or recovery from her condition. Treatment is palliative at this point in time. the role of dialysis is also questionable in her situation.
[2020-11-26] MEDS: fentaNYL (PF) 50 MCG/ML 2 ML AMP IVP PRN (10:20)
[2020-11-26 11:01] VITALS: RESP 11
[2020-11-26 11:29] LABS: Complement C3 58.5 mg/dL (80.0-207.0)
[2020-11-26 12:06] VITALS: BP 106/74; TEMP 97.2
[2020-11-26] MEDS ORDERED: LORazepam 2 MG/ML INJ IV PRN (12:08)
[2020-11-26] MEDS ORDERED: MORPHINE SULFATE 4 MG/ML SYRINGE IV PRN (12:08)
[2020-11-26] MEDS ORDERED: MORPHINE SULFATE 4 MG/ML SYRINGE IVP ONE (12:08)
[2020-11-26] MEDS ORDERED: MORPHINE SULFATE 2 MG/ML SYRINGE IV PRN (12:08)
[2020-11-26] MEDS ORDERED: MORPHINE SULFATE (100 MG/2 ML) 100 MG in SODIUM CHLORIDE 0.9% 100 ML IV SCH (12:30)
--- NOTE | 2020-11-26 14:42 | P.PN ---
Subjective Progress Note Date: 11/26/20 CHIEF COMPLAINT: Abdominal. Protein malnutrition HISTORY OF PRESENT ILLNESS: The patient is a 70-year-old female presented for abdominal pain on 11/18/2020. She has been hospitalized for 1 week. She presents with progressive acute renal failure during hospitalization. Diagnostic workup demonstrated ascites. She had paracentesis. Cytology came back positive for metastatic adenocarcinoma of unclear etiology. Surgery was consulted for placement Doppler. Patient has a history gastric bypass for obesity. She is in intensive care unit due to persistent hypotension. Her family is at bedside and has elected for comfort measures, DNR. ROS: No fevers or chills. No new chest pain. Has morbid obesity, BMI 39.4 PHYSICAL EXAM: VITAL SIGNS: Reviewed CONSTITUTIONAL: Well developed and in no acute distress. EYES: Conjuctivae without sclera icterus. Extraocular movements grossly intact. HEAD, EARS, NOSE, THROAT: Moist buccal mucosa. Head is atraumatic, normocephalic. No nasal drainage. NECK: Supple. No thyroidomegaly. RESPIRATORY: Non-labored respirations and equal bilateral excursions. CARDIOVASCULAR: Palpable 2+ radial pulses. ABDOMEN: Protuberant MUSCULOSKELETAL: No gross deformity of the lower extremities noted. No clubbing. No cyanosis. SKIN: Good skin turgor. Well perfused. NEUROLOGIC: Cranial nerves II through XII grossly intact. No focal or lateralizing signs. PSYCH: Not alert PATHOLOGY: Ascites positive for adenocarcinoma, poorly differentiated of blake rointestinal versus biliary pancreatic versus bladder source CLINICAL LABS: WBC elevated from 19-23,000 with leukocytosis. Hemoglobin is stable 10-10.4 but with anemia. Creatinine down to 3.38 to 3.11. Coronal virus negative ASSESSMENT: 1. Poorly differentiated adenocarcinoma, metastatic, unclear etiology 2. History of gastric bypass for morbid obesity 3. Inadequate protein intake due to malnutrition 4. Hypotension 5. Acute renal failure PLAN: 1. Per discussion with family, she is now DNR and comfort care. Objective - Vital Signs Vital signs: Vital Signs Temp 97.3 F L 11/26/20 08:00 Pulse 70 11/26/20 11:00 Resp 11 L 11/26/20 11:00 BP 109/38 11/26/20 11:00 Pulse Ox 95 11/26/20 11:00 Intake & Output 11/25/20 11/26/20 11/26/20 18:59 06:59 18:59 Intake Total 4858.000 2216.721 1068.491 Output Total 10 10 0 Balance 4848.000 2206.721 1068.491 Weight 107 kg 114.2 kg Intake: IV 4150 1630 840 .9NS CVP 30 15 Albumin Human 5% 500 ml 1000 In Empty Bag 1 bag @ 500 mls/hr IVPB ONCE ONE Rx#: [id number] Calcium Gluconate 1 gm In 100 Sodium Chloride 0.9% 100 ml @ 100 mls/hr IVPB ONCE [facility] Rx#:[id number] Piperacillin-Tazobactam 3 100 100 100 .375 gm In Sodium Chloride 0.9% 100 ml @ 25 mls/hr IVPB Q12HR [facility] Rx #:[id number] Sodium Chloride 0.9% 1, 1050 1500 625 000 ml @ 125 mls/hr IV . Q8H [facility] Rx#:[id number] Sodium Chloride 0.9% 1, 2000 000 ml @ 999 mls/hr IV . Q1H1M [facility] Rx#:[id number] Intake, IV Titration 508.000 586.721 228.491 Amount Norepinephrine 4 mg In 508.000 586.721 Sodium Chloride 0.9% 250 ml @ 0.05 MCG/KG/MIN 18. 098 mls/hr IV .Q14H3M [facility] Rx#:[id number] Norepinephrine 8 mg In 228.491 Sodium Chloride 0.9% 250 ml @ 0.22 MCG/KG/MIN 48. 615 mls/hr IV .Q5H19M [facility] Rx#:[id number] Oral 200 Output: Urine 10 10 0 Other: Voiding Method Indwelling Catheter Indwelling Catheter Indwelling Catheter - Labs CBC & Chem 7: 11/26/20 05:45 11/26/20 05:45 Labs: Abnormal Lab Results - Last 24 Hours (Table) 11/25/20 11/25/20 11/25/20 Range/Units 11:04 11:04 12:02 WBC (3.8-10.6) k/uL RBC (3.80-5.40) m/uL Hgb (11.4-16.0) gm/dL Hct (34.0-46.0) % RDW (11.5-15.5) % Sodium 129 L (137-145) mmol/L Chloride 97 L (98-107) mmol/L BUN 38 H (7-17) mg/dL Creatinine 3.38 H (0.52-1.04) mg/dL Glucose 117 H (74-99) mg/dL POC Glucose (mg/dL) 103 H (75-99) mg/dL Calcium 6.4 L* (8.4-10.2) mg/dL Ionized Calcium Maurice (4.5-5.3) mg/dL Total Bilirubin (0.2-1.3) mg/dL AST (14-36) U/L Total Protein (6.3-8.2) g/dL Albumin (3.5-5.0) g/dL Procalcitonin 3.80 H (0.02-0.09) ng/mL 11/25/20 11/26/20 11/26/20 Range/Units 13:48 05:45 05:45 WBC 23.3 H (3.8-10.6) k/uL RBC 3.54 L (3.80-5.40) m/uL Hgb 10.0 L (11.4-16.0) gm/dL Hct 32.0 L (34.0-46.0) % RDW 20.4 H (11.5-15.5) % Sodium 130 L (137-145) mmol/L Chloride (98-107) mmol/L BUN 38 H (7-17) mg/dL Creatinine 3.11 H (0.52-1.04) mg/dL Glucose 117 H (74-99) mg/dL POC Glucose (mg/dL) (75-99) mg/dL Calcium 6.4 L* (8.4-10.2) mg/dL Ionized Calcium Maurice 3.9 L (4.5-5.3) mg/dL Total Bilirubin 0.1 L (0.2-1.3) mg/dL AST 45 H (14-36) U/L Total Protein 3.7 L (6.3-8.2) g/dL Albumin 2.0 L (3.5-5.0) g/dL Procalcitonin (0.02-0.09) ng/mL Microbiology - Last 24 Hours (Table) 11/24/20 17:30 Blood Culture - Preliminary Blood No Growth after 24 hours 11/24/20 17:10 Blood Culture - Preliminary Blood No Growth after 24 hours 11/21/20 10:45 Gram Stain - Final Ascites Fluid Body Fluid Culture - Final Assessment and Plan (1) Leukocytosis Current Visit: Yes Status: Acute Code(s): D72.829 - ELEVATED WHITE BLOOD CELL COUNT, UNSPECIFIED SNOMED Code(s): 409224792 (2) Acute renal failure Current Visit: Yes Status: Acute Code(s): N17.9 - ACUTE KIDNEY FAILURE, UNSPECIFIED SNOMED Code(s): 83684921 (3) H/O gastric bypass Current Visit: Yes Status: Acute Code(s): Z98.84 - BARIATRIC SURGERY STATUS SNOMED Code(s): 295799974 (4) Morbid obesity due to excess calories Current Visit: Yes Status: Acute Code(s): E66.01 - MORBID (SEVERE) OBESITY DUE TO EXCESS CALORIES SNOMED Code(s): 528051160 (5) Inadequate dietary intake of protein Current Visit: Yes Status: Acute Code(s): E63.9 - NUTRITIONAL DEFICIENCY, UNSPECIFIED SNOMED Code(s): 725588928 (6) Adenocarcinoma Current Visit: Yes Status: Acute Code(s): C80.1 - MALIGNANT (PRIMARY) NEOPLASM, UNSPECIFIED SNOMED Code(s): 944287422 (7) Ascites Current Visit: Yes Status: Acute Code(s): R18.8 - OTHER ASCITES SNOMED Code(s): 650062673 (8) Hypotension Current Visit: Yes Status: Acute Code(s): I95.9 - HYPOTENSION, UNSPECIFIED SNOMED Code(s): 94621143
[2020-11-26 14:49] LABS: Hepatitis B Surface AB- Quant <3.5 mIU/mL; Hepatitis B Surface Antibody Non-Reactive (Non-Reactive); Hepatitis B Surface Antigen Non-Reactive (Non-Reactive); Hepatitis C IgG Antibody Non-Reactive (Non-Reactive)
--- NOTE | 2020-11-26 16:27 | P.PN ---
Progress Note - Text Progress Note Date: 11/25/20 Chief Complaint: Weak and tired History of presenting complaint: This is a very pleasant 70-year-old patient who follows with Dr. Kenia Daniel. Chronic stable medical conditions include osteoarthritis, hypertension, hyperlipidemia, depression, insomnia. Patient was 2 days ago discharged from [facility]. Patient had a paracentesis carried out 3800 mL was removed. Cytology came back positive for adenocarcinoma. Follow-up was in progress. Patient has followed up with Dr. Dominguez in the past for iron deficiency and received IV iron. At home patient had been getting progressively worse. Barely able to walk. Does have a walker. . Very poor appetite. Constipation. Blood work from other hospitals reviewed. Also swelling in the lower extremity. No fever no chills. No cough. Abdomen some bit more distended. No pain Admitted with acute on chronic medical debility, medical asthenia, hyponatremia, secondary ascites, anorexia. Put on fluid restriction. Lasix. Abdominal ultrasound showed small ascites. Also acute kidney injury felt to be ATN. Consultation made to oncology, nephrology. Urine has been poor.4 L of straw- colored paracentesis done . Patient renal function worsening. Lasix discontinued. Given IV fluids. Per GI patient had EGD on October 22 at [facility]: Unremarkable. Poor appetite. has been visiting. They understand guarded prognosis. CODE STATUS was discussed with the patient has been on November 23. Patient elected to become DO NOT RESUSCITATE. Understanding guarded prognosis. November 25: A-team was called patient smokes ICU. Put on dopamine, and we will fed drip. Patient reversed her CODE STATUS to full code. Today: ICU: Levo fed drip. Sinus rhythm. Tired. No urine output. Abdominal pain. Poor oral intake. is a bedside. Review of systems: Was done for constitutional, cardiovascular, GI, pulmonary. relevant finding as above Current medications reviewed in today's electronic records Past medical history to include: Atrial fibrillation, hypertension, hyperlipidemia, iron deficiency anemia, gastric bypass surgery, just diagnosed with adenocarcinoma in the peritoneal fluid primary unknown, osteoarthritis Social history: Patient quit smoking in 1994. Sometimes has wine. . Walker. Physical examination: VITAL SIGNS: Afebrile, 70, 16, 81/54, 96% on 2 L GENERAL: Reclining in bed, tired EYES: Pupils equal. Conjunctiva pale. NECK: JVD unable to assess; masses not palpable. HEART: Irregular heart sounds; edema present. LUNGS: Respiratory rate increased decreased breath sounds. ABDOMEN: Soft, slight distention, tenderness, liver spleen not palpable, no masses palpable. PSYCH: Answering simple questions, able to hold a conversation MUSCULAR skeletal: Evidence of OA, NEUROLOGICAL: Cranial nerves grossly intact; no facial asymmetry, generally decreased power and sensation grossly intact. INVESTIGATIONS, reviewed in the clinical context: November 25: WBC 9.2 hemoglobin 10.4 November 24: WBC 14.4 hemoglobin 9.1 platelets 404 sodium 125 BUN 39 creatinine 2.88 November 23: WBC 14.6 hemoglobin 9.6 sodium 127 potassium 4.5 BUN 35 creatinine 2.59 November 22: WBC 14.3 hemoglobin 8 platelets 357 sodium 129 potassium 4.6 creatinine 2.9I and 12 TIBC 121% saturation 9.9 to November 21: WBC 16.2 hemoglobin 10.2 sodium 125 potassium 5.3 BUN 25 creatinine 2.40 Ultrasound axilla and right to left: No obvious lymph node detected Ultrasound kidney bladder: Mild ascites. No evidence of medical renal disease reported November 19: WBC 10.8 hemoglobin 9.7 sodium 124 potassium 5.[address] brain: Nonspecific Transvaginal ultrasound: Nonspecific 2-D echocardiogram: EF 60-65% CA 15-3 antigen 61.7. CA 27-29 131.2. CA-125 antigen to 90. Vitamin B12 2362 WBC 11.4 hemoglobin 11.1 platelets 434 sodium 125 potassium 5 BUN 12 creatinine 1.18 ProBNP 1180 albumin 2.3 UA positive for blood, leukoesterase, WBC,'s, squamous epithelial cells Coronavirus [PCR]: Not detected EKG tracing personally reviewed by me-atrial paced rhythm T-wave abnormality Chest x-ray film personally reviewed by [id number] pleural effusion Abdominal ultrasound: Small amount of ascites Investigations from the outside hospital: Hemoglobin 10.8 platelets 332 hepatitis screen for A, B, and C negative creatinine 0.79 CEA: 63 mL and 19-9:15 IgM and IgG: Low Antinuclear antibody, echocardiogram antibody, smooth muscle antibody all negative Assessment and plan: -Acute on chronic medical debility from adenocarcinoma/malignancy the primary is not known, progressive. poor appetite and losing worsening -Acute on chronic gait dysfunction, from increasing medical debility: not impr oving Finding difficult to walk, was using a walker before that -Adenocarcinoma, diagnosed from peritoneal fluid last week, primary unknown Consultation to oncology. Workup in place -Secondary ascites likely from peritoneal seeding from adenocarcinoma. Paracentesis-4 L -Hyponatremia, slow to respond Fluid restriction to 15 00mL a. Low-salt diet. -Depression not otherwise specified Continue Lexapro -Persistent atrial fibrillation, with a pacemaker On sotalol and xarelto -GERD On omeprazole -Hyperlipidemia On Lipitor -Anemia normocytic of chronic disease including that of underlying malignancy Follow H&H -Chronic insomnia from multiple medical problems *Melatonin -Acute kidney injury, ATN, oliguric: worsening Patient received Lasix. Be followed by nephrology. Looks like intravascular depletion. Getting IV fluids. Lasix discontinued. dopamine drip-discontinued -Edema likely from hypoalbuminemia, third spacing -Mild protein calorie malnutrition, from decreased oral intake -Iron deficiency anemia -Hypotensive shock, multifactorial: Not improving Dopamine and levo fed drip. IV fluids. Patient expresses a thankfulness for what we are doing for her.. Intermittently tearful. Continue current medication treatment plan. Nephrology is considering dialysis. Discussed with patient's the bedside. He understands the prognosis is not good. He is reaching out to his children. Patient is doing poorly
--- NOTE | 2020-11-26 16:33 | P.PN ---
Progress Note - Text Progress Note Date: 11/26/20 Chief Complaint: Weak and tired History of presenting complaint: This is a very pleasant 70-year-old patient who follows with Dr. Kenia Daniel. Chronic stable medical conditions include osteoarthritis, hypertension, hyperlipidemia, depression, insomnia. Patient was 2 days ago discharged from [facility]. Patient had a paracentesis carried out 3800 mL was removed. Cytology came back positive for adenocarcinoma. Follow-up was in progress. Patient has followed up with Dr. Dominguez in the past for iron deficiency and received IV iron. At home patient had been getting progressively worse. Barely able to walk. Does have a walker. . Very poor appetite. Constipation. Blood work from other hospitals reviewed. Also swelling in the lower extremity. No fever no chills. No cough. Abdomen some bit more distended. No pain Admitted with acute on chronic medical debility, medical asthenia, hyponatremia, secondary ascites, anorexia. Put on fluid restriction. Lasix. Abdominal ultrasound showed small ascites. Also acute kidney injury felt to be ATN. Consultation made to oncology, nephrology. Urine has been poor.4 L of straw- colored paracentesis done . Patient renal function worsening. Lasix discontinued. Given IV fluids. Per GI patient had EGD on October 22 at [facility]: Unremarkable. Poor appetite. has been visiting. They understand guarded prognosis. CODE STATUS was discussed with the patient has been on November 23. Patient elected to become DO NOT RESUSCITATE. Understanding guarded prognosis. November 25: A-team was called patient smokes ICU. Put on dopamine, and we will fed drip. Patient reversed her CODE STATUS to full code. Today: ICU: Levo fed drip. Telemetry shows paced rhythm. No urine output. Lethargic, just about arousable. Also at the bedside. 2 L nasal cannula Review of systems: Unable to obtain as patient rather tired Current medications reviewed in today's electronic records Past medical history to include: Atrial fibrillation, hypertension, hyperlipidemia, iron deficiency anemia, gas tric bypass surgery, just diagnosed with adenocarcinoma in the peritoneal fluid primary unknown, osteoarthritis Social history: Patient quit smoking in 1994. Sometimes has wine. . Walker. Physical examination: VITAL SIGNS: 97.2, 70, 11, 106/74, 98% on 2 L GENERAL: Reclining in bed, very lethargic EYES: Pupils equal. Conjunctiva pale. NECK: JVD unable to assess; masses not palpable. HEART: Irregular heart sounds; edema present. LUNGS: Respiratory rate increased decreased breath sounds. ABDOMEN: Soft, slight distention, tenderness, liver spleen not palpable, no masses palpable. PSYCH: Barely arousable MUSCULAR skeletal: Evidence of OA, NEUROLOGICAL: Cranial nerves grossly intact; no facial asymmetry, generally decreased power and sensation grossly intact. INVESTIGATIONS, reviewed in the clinical context: November 26: WBC 23.3 hemoglobin 10 potassium 4.2 crit and 3.11 November 25: WBC 9.2 hemoglobin 10.4 November 24: WBC 14.4 hemoglobin 9.1 platelets 404 sodium 125 BUN 39 creatinine 2.88 November 23: WBC 14.6 hemoglobin 9.6 sodium 127 potassium 4.5 BUN 35 creatinine 2.59 November 22: WBC 14.3 hemoglobin 8 platelets 357 sodium 129 potassium 4.6 creatinine 2.9I and 12 TIBC 121% saturation 9.9 to November 21: WBC 16.2 hemoglobin 10.2 sodium 125 potassium 5.3 BUN 25 creatinine 2.40 Ultrasound axilla and right to left: No obvious lymph node detected Ultrasound kidney bladder: Mild ascites. No evidence of medical renal disease reported November 19: WBC 10.8 hemoglobin 9.7 sodium 124 potassium 5.[address] brain: Nonspecific Transvaginal ultrasound: Nonspecific 2-D echocardiogram: EF 60-65% CA 15-3 antigen 61.7. CA 27-29 131.2. CA-125 antigen to 90. Vitamin B12 2362 WBC 11.4 hemoglobin 11.1 platelets 434 sodium 125 potassium 5 BUN 12 creatinine 1.18 ProBNP 1180 albumin 2.3 UA positive for blood, leukoesterase, WBC,'s, squamous epithelial cells Coronavirus [PCR]: Not detected EKG tracing personally reviewed by me-atrial paced rhythm T-wave abnormality Chest x-ray film personally reviewed by [id number] pleural effusion Abdominal ultrasound: Small amount of ascites Investigations from the outside hospital: Hemoglobin 10.8 platelets 332 hepatitis screen for A, B, and C negative creatinine 0.79 CEA: 63 mL and 19-9:15 IgM and IgG: Low Antinuclear antibody, echocardiogram antibody, smooth muscle antibody all negative Assessment and plan: -Acute on chronic medical debility from adenocarcinoma/malignancy the primary is not known, progressive. poor appetite and losing worsening -Acute on chronic gait dysfunction, from increasing medical debility: not i mproving Finding difficult to walk, was using a walker before that -Adenocarcinoma, diagnosed from peritoneal fluid last week, primary unknown Consultation to oncology. Workup in place -Secondary ascites likely from peritoneal seeding from adenocarcinoma. Paracentesis-4 L -Hyponatremia, slow to respond Fluid restriction to 15 00mL a. Low-salt diet. -Depression not otherwise specified Continue Lexapro -Persistent atrial fibrillation, with a pacemaker On sotalol and xarelto -GERD On omeprazole -Hyperlipidemia On Lipitor -Anemia normocytic of chronic disease including that of underlying malignancy Follow H&H -Chronic insomnia from multiple medical problems *Melatonin -Acute kidney injury, ATN, oliguric: worsening Patient received Lasix. Be followed by nephrology. Looks like intravascular depletion. Getting IV fluids. Lasix discontinued. dopamine drip-discontinued -Edema likely from hypoalbuminemia, third spacing -Mild protein calorie malnutrition, from decreased oral intake -Iron deficiency anemia -Hypotensive shock, multifactorial: Not improving Dopamine and levo fed drip. IV fluids. -Acute metabolic encephalopathy multifactorial Patient continues to do poorly/worsening. Continue current medication treatment plan. Nephrology was considering dialysis. at the bedside. Advanced care planning: Discussed with the at the bedside. understand that the patient not doing well. He sees this is suffering understand his prognosis is poor. Patient becoming increasingly lethargic. He wants all artificial treatment to be stopped. He wishes to proceed with comfort care. All questions were answered. He is also contacting his doctor. I did go on to inform Dr. Arevalo and Dr. Shea. There are agreeable with the plan. Discussed with the nurse. Discussed the about hospice Total time spent 20 minutes.
[2020-11-26 17:20] LABS: Hepatitis B Surface AB- Quant <3.5 mIU/mL; Hepatitis B Surface Antibody Non-Reactive (Non-Reactive); Hepatitis B Surface Antigen Non-Reactive (Non-Reactive)
--- NOTE | 2020-11-26 18:40 | P.DS ---
Providers Date of admission: 11/18/20 10:58 Expected date of discharge: 11/26/20 Attending physician: Timothy Appiah Consults: 11/18/20 10:57 Consult Physician Urgent Consulting Provider: Jarad Cr Consult Reason/Comments: Adenocarcinoma Do you want consulting provider notified?: Yes 11/19/20 15:53 Consult Physician Routine Consulting Provider: Carson Arevalo Consult Reason/Comments: Kidney injury Do you want consulting provider notified?: Yes 11/20/20 19:01 Consult Physician Routine Consulting Provider: Lucian Hernandez Consult Reason/Comments: anuria Do you want consulting provider notified?: Yes 11/23/20 13:32 Consult Physician Routine Consulting Provider: Torey Rodriguez Consult Reason/Comments: poss dobhoff placement hx gastric bypass Do you want consulting provider notified?: Already Contacted 11/24/20 10:49 Consult Physician Routine Consulting Provider: Rosalina Shea Consult Reason/Comments: hypotension Do you want consulting provider notified?: Yes 11/26/20 08:52 Consult Physician Routine Consulting Provider: Rui Montoya Consult Reason/Comments: HD cath Do you want consulting provider notified?: Yes Primary care physician: Jami Daniel [facility] Course: Chief Complaint: Weak and tired History of presenting complaint: This is a very pleasant 70-year-old patient who follows with Dr. Kenia Daniel. Chronic stable medical conditions include osteoarthritis, hypertension, hyperlipidemia, depression, insomnia. Patient was 2 days ago discharged from [facility]. Patient had a paracentesis carried out 3800 mL was removed. Cytology came back positive for adenocarcinoma. Follow-up was in progress. Patient has followed up with Dr. Dominguez in the past for iron deficiency and received IV iron. At home patient had been getting progressively worse. Barely able to walk. Does have a walker. . Very poor appetite. Constipation. Blood work from other hospitals reviewed. Also swelling in the lower extremity. No fever no chills. No cough. Abdomen some bit more distended. No pain Admitted with acute on chronic medical debility, medical asthenia, hyponatremia, secondary ascites, anorexia. Put on fluid restriction. Lasix. Abdominal ultrasound showed small ascites. Also acute kidney injury felt to be ATN. Consultation made to oncology, nephrology. Urine has been poor.4 L of straw- colored paracentesis done . Patient renal function worsening. Lasix discontinued. Given IV fluids. Per GI patient had EGD on October 22 at [facility]: Unremarkable. Poor appetite. has been visiting. They understand guarded prognosis. CODE STATUS was discussed with the patient has been on November 23. Patient elected to become DO NOT RESUSCITATE. Understanding guarded pro gnosis. November 25: A-team was called patient smokes ICU. Put on dopamine, and we will fed drip. Patient reversed her CODE STATUS to full code. Today: ICU: Levo fed drip. Telemetry shows paced rhythm. No urine output. Lethargic, just about arousable. Also at the bedside. 2 L nasal cannula. Patient doing poorly. Discussed with her . He decided to make her comfort care. Treatment stop. Patient later in the day. Consultation: Dr. Shea and partners from critical care Dr. Arevalo and partners from nephrology Dr. Gonzalez from oncology Past medical history to include: Atrial fibrillation, hypertension, hyperlipidemia, iron deficiency anemia, gastric bypass surgery, just diagnosed with adenocarcinoma in the peritoneal fluid primary unknown, osteoarthritis Social history: Patient quit smoking in 1994. Sometimes has wine. . Walker. INVESTIGATIONS, reviewed in the clinical context: November 26: WBC 23.3 hemoglobin 10 potassium 4.2 crit and 3.11 November 25: WBC 9.2 hemoglobin 10.4 November 24: WBC 14.4 hemoglobin 9.1 platelets 404 sodium 125 BUN 39 creatinine 2.88 November 23: WBC 14.6 hemoglobin 9.6 sodium 127 potassium 4.5 BUN 35 creatinine 2.59 November 22: WBC 14.3 hemoglobin 8 platelets 357 sodium 129 potassium 4.6 creatinine 2.9I and 12 TIBC 121% saturation 9.9 to November 21: WBC 16.2 hemoglobin 10.2 sodium 125 potassium 5.3 BUN 25 creatinine 2.40 Ultrasound axilla and right to left: No obvious lymph node detected Ultrasound kidney bladder: Mild ascites. No evidence of medical renal disease reported November 19: WBC 10.8 hemoglobin 9.7 sodium 124 potassium 5.[address] brain: Nonspecific Transvaginal ultrasound: Nonspecific 2-D echocardiogram: EF 60-65% CA 15-3 antigen 61.7. CA 27-29 131.2. CA-125 antigen to 90. Vitamin B12 2362 WBC 11.4 hemoglobin 11.1 platelets 434 sodium 125 potassium 5 BUN 12 creatinine 1.18 ProBNP 1180 albumin 2.3 UA positive for blood, leukoesterase, WBC,'s, squamous epithelial cells Coronavirus [PCR]: Not detected EKG tracing personally reviewed by me-atrial paced rhythm T-wave abnormality Chest x-ray film personally reviewed by [id number] pleural effusion Abdominal ultrasound: Small amount of ascites Investigations from the outside hospital: Hemoglobin 10.8 platelets 332 hepatitis screen for A, B, and C negative creatinine 0.79 CEA: 63 mL and 19-9:15 IgM and IgG: Low Antinuclear antibody, echocardiogram antibody, smooth muscle antibody all negative Cause of : Adenocarcinoma, metastatic, primary unknown Assessment and plan: -Acute on chronic medical debility from adenocarcinoma/malignancy the primary is not known, progressive. poor appetite and losing worsening -Acute on chronic gait dysfunction, from increasing medical debility: not improving Finding difficult to walk, was using a walker before that -Adenocarcinoma, diagnosed from peritoneal fluid last week, primary unknown Consultation to oncology. Workup in place -Secondary ascites likely from peritoneal seeding from adenocarcinoma. Paracentesis-4 L -Hyponatremia, slow to respond Fluid restriction to 15 00mL a. Low-salt diet. -Depression not otherwise specified Continue Lexapro -Persistent atrial fibrillation, with a pacemaker On sotalol and xarelto -GERD On omeprazole -Hyperlipidemia On Lipitor -Anemia normocytic of chronic disease including that of underlying malignancy Follow H&H -Chronic insomnia from multiple medical problems *Melatonin -Acute kidney injury, ATN, oliguric: worsening Patient received Lasix. Be followed by nephrology. Looks like intravascular depletion. Getting IV fluids. Lasix discontinued. dopamine drip-discontinued -Edema likely from hypoalbuminemia, third spacing -Mild protein calorie malnutrition, from decreased oral intake -Iron deficiency anemia -Hypotensive shock, multifactorial: Not improving Dopamine and levo fed drip. IV fluids. -Acute metabolic encephalopathy multifactorial Disposition: Patient Plan - Discharge Summary Discharge Rx Participant: No New Discharge Prescriptions: No Action traZODone HCL [TraZODone HCl] 50 - 150 mg PO TID PRN PRN Reason: Pain Rivaroxaban [Xarelto] 15 mg PO W/SUPPER Simethicone 80 mg PO Q4H PRN PRN Reason: discomfort tiZANidine HCL [Zanaflex] 2 mg PO TID PRN PRN Reason: Muscle Pain Sucralfate [Carafate] 1 gm PO Q8H Sotalol [Betapace] 180 mg PO BID Omeprazole 40 mg PO DAILY Atorvastatin [Lipitor] 40 mg PO HS Escitalopram [Lexapro] 10 mg PO DAILY PRN PRN Reason: depression Discharge Medication List traZODone HCL [TraZODone HCl] 50 - 150 mg PO TID PRN 10/11/20 [History] Atorvastatin [Lipitor] 40 mg PO HS 11/18/20 [History] Escitalopram [Lexapro] 10 mg PO DAILY PRN 11/18/20 [History] Omeprazole 40 mg PO DAILY 11/18/20 [History] Rivaroxaban [Xarelto] 15 mg PO W/SUPPER 11/18/20 [History] Simethicone 80 mg PO Q4H PRN 11/18/20 [History] Sotalol [Betapace] 180 mg PO BID 11/18/20 [History] Sucralfate [Carafate] 1 gm PO Q8H 11/18/20 [History] tiZANidine HCL [Zanaflex] 2 mg PO TID PRN 11/18/20 [History] Follow up Appointment(s)/Referral(s): [facility], [NON-STAFF] - 1-2 Days Jami Daniel MD [Primary Care Provider] - 1-2 days
--- NOTE | 2020-11-26 18:44 | P.PN ---
Subjective Progress Note Date: 11/26/20 Principal diagnosis: New metastatic Cancer Unknown primary Patient seen in ICU and planning to transfer to regular medical floor today. Overall her status has progressively declined, she is not a candidate for treatment due to renal function and poor performance. COmfort measures are most appropriate and will further discuss with and plan for comfort/hospice consult. Objective - Vital Signs Vital signs: Vital Signs Temp 97.2 F L 11/26/20 12:00 Pulse 70 11/26/20 12:00 Resp 11 L 11/26/20 12:00 BP 106/74 11/26/20 12:00 Pulse Ox 98 11/26/20 12:00 Intake & Output 11/25/20 11/26/20 11/26/20 18:59 06:59 18:59 Intake Total 4858.000 2216.721 1196.491 Output Total 10 10 0 Balance 4848.000 2206.721 1196.491 Weight 107 kg 114.2 kg Intake: IV 4150 1630 968 .9NS CVP 30 18 Albumin Human 5% 500 ml 1000 In Empty Bag 1 bag @ 500 mls/hr IVPB ONCE ONE Rx#: [id number] Calcium Gluconate 1 gm In 100 Sodium Chloride 0.9% 100 ml @ 100 mls/hr IVPB ONCE ONE Rx#:[id number] Piperacillin-Tazobactam 3 100 100 100 .375 gm In Sodium Chloride 0.9% 100 ml @ 25 mls/hr IVPB Q12HR [facility] Rx #:[id number] Sodium Chloride 0.9% 1, 1050 1500 750 000 ml @ 125 mls/hr IV . Q8H [place] Rx#:[id number] Sodium Chloride 0.9% 1, 2000 000 ml @ 999 mls/hr IV . Q1H1M [facility] Rx#:[id number] Intake, IV Titration 508.000 586.721 228.491 Amount Norepinephrine 4 mg In 508.000 586.721 Sodium Chloride 0.9% 250 ml @ 0.05 MCG/KG/MIN 18. 098 mls/hr IV .Q14H3M [facility] Rx#:[id number] Norepinephrine 8 mg In 228.491 Sodium Chloride 0.9% 250 ml @ 0.22 MCG/KG/MIN 48. 615 mls/hr IV .Q5H19M [facility] Rx#:[id number] Oral 200 Output: Urine 10 10 0 Other: Voiding Method Indwelling Catheter Indwelling Catheter Indwelling Catheter - Labs CBC & Chem 7: 11/26/20 05:45 11/26/20 05:45 Labs: Abnormal Lab Results - Last 24 Hours (Table) 11/25/20 11/25/20 11/26/20 Range/Units 11:04 13:48 05:45 WBC 23.3 H (3.8-10.6) k/uL RBC 3.54 L (3.80-5.40) m/uL Hgb 10.0 L (11.4-16.0) gm/dL Hct 32.0 L (34.0-46.0) % RDW 20.4 H (11.5-15.5) % Sodium (137-145) mmol/L BUN (7-17) mg/dL Creatinine (0.52-1.04) mg/dL Glucose (74-99) mg/dL Calcium (8.4-10.2) mg/dL Total Bilirubin (0.2-1.3) mg/dL AST (14-36) U/L Total Protein (6.3-8.2) g/dL Albumin (3.5-5.0) g/dL Procalcitonin 3.80 H (0.02-0.09) ng/mL Complement C3 58.5 L (80.0-207.0) mg/dL 11/26/20 Range/Units 05:45 WBC (3.8-10.6) k/uL RBC (3.80-5.40) m/uL Hgb (11.4-16.0) gm/dL Hct (34.0-46.0) % RDW (11.5-15.5) % Sodium 130 L (137-145) mmol/L BUN 38 H (7-17) mg/dL Creatinine 3.11 H (0.52-1.04) mg/dL Glucose 117 H (74-99) mg/dL Calcium 6.4 L* (8.4-10.2) mg/dL Total Bilirubin 0.1 L (0.2-1.3) mg/dL AST 45 H (14-36) U/L Total Protein 3.7 L (6.3-8.2) g/dL Albumin 2.0 L (3.5-5.0) g/dL Procalcitonin (0.02-0.09) ng/mL Complement C3 (80.0-207.0) mg/dL Microbiology - Last 24 Hours (Table) 11/24/20 17:30 Blood Culture - Preliminary Blood No Growth after 24 hours 11/24/20 17:10 Blood Culture - Preliminary Blood No Growth after 24 hours Assessment and Plan Plan: Assessment and Recommendations: Acute Renal Insufficiency/Failure - Continues to worsening, creatinine >2 today - Nephrology following Presentation for Chest Pain: - Unknown etiology, COVID Negative, Mild effusions bilateral and bibasilar atelectasis New Onset Abdominal Ascites: - Status POst Paracentesis on 11/11/20 at [facility]: - 300cc removed again on 08/15/20 - Cytology Positive for Adenocarcinoma (11/11/20) , Origin suspicious for upper GI or PICC NURSE/Breast Origin, however remains unknown at this time - Hx: iron deficiency anemia, Bariatric bypass surgery and inability to adequately scope over the years with chronic Iron deficiency. - Full breast exam and bilateral axillary without palpable or clinical findings to suggest malignancy, CT did not reveal abnormality. - AFP <2.7 (WNL), CA19-9 15 (WNL), CEA 6.3 (mild elevated), Ca 15-3, Ca27-29, Ca125: all mild increase which is non specific - Repeat Paracentesus Chronic Iron Deficiency thought to be related to AVM/GI Blood loss and Absorbption secondary to past history - EGD 10/22/20: No evidence of bleeding or suspicion for malignancy. Report does mention erythema - Colonoscopy on 11/16/20: no evidence of bleeding, Left sided diverticulosis, internal hemorrhoids. No mass or definitive primary malignancy - She does have history of erosive esophagitis and ETOH Component B12 Deficiency: - Jonathan and Y history and malabsorption - Folate Supplementation ordered Sick Sinus Syndrome/Paroxysmal Atrial FIbrillation: - Status Post Pacemaker Placement Recent: 11/04/20 - Continues on Xarelto - Cardiology to follow is recommended - Echocardiogram on 11/12/20: 55-60% EF - Right Ventricle a 4.6x5.0 cm echodensity with a fluid filled cyst-like structure noted in the subcostal view (Dedicated imaging advised), not seen on 12/07/20 study Hypotension: - ICU Transfer Hyponatremia: - Secondary to third space - Nephrology following Patient has progressively worsened over the time at the hospital, her diagnosis has been established as a metastatic cancer however the source is not clear. Her renal function is worsened along with cardiac and peformance status. She is not a candidate at this time due to her current status and the above and overall her prognosis is very poor. Hospice is appropriate and I will place an information meeting for her today.
[2020-11-27] MEDS ORDERED: FOLIC ACID 1 MG TAB PO SCH (09:00)
[2020-11-28 15:11] LABS: C-ANCA <1:20 Titer (<1:20)
--- NOTE | 2020-11-29 08:27 | CDI ---
Documentation Clarification Form Date: 11/29/2020 07:59:23 AM From: Ngozi ChauhanNICOLE rivera, CCDS Admit Date: 11/18/2020 10:58:00 AM Patient Name: Lia Johns Visit Number: [id number] Discharge Date: 11/26/2020 06:38:00 PM ATTENTION: The Clinical Documentation Specialists (CDI) and [facility] Coding Staff appreciate your assistance in clarifying documentation. Please respond to the clarification below the line at the bottom and electronically sign. The CDI & [facility] Coding staff will review the response and follow-up if needed. Please note: Queries are made part of the Legal Health Record. If you have any questions, please contact the author of this message via ITS. Dr. Timothy Appiah: Per the 11/25 ad 11/26 Pulmonary Progress Note the following is documented: "An underlying septic component cannot be completely ruled out." "Acute hypotension she is thought to be hypovolemic and (subsequently) there was a concern that she may be getting septic as the patient's white cell count is on the rise." Additional clarification regarding possible Sepsis and related conditions is requested. 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 Clinical Indicators: Presented to the ED on 11/18 with Abdominal Pain. The patient was recently at [facility] and had a paracentesis done with results concerning for adenocarcinoma, also recently had a Permanent Pacemaker implanted for Atrial Fibrillation. ED Clinical Impression: Hyponatremia, Ascites, Adenocarcinoma. 11/18 VS: T 98.2 - 96.2, P 68 - 70, R 18 - 15, BP 112/60 - 116/71; PO 98 6Lnc - 92 RA, BMI: 32.8 11/18 LAB: WBC 11.4, Hgb 11.1, Neut 9.8, Lymph 0.6, Na 125, CO2 17, Creatinine 1.18, Total Protein 4.5, Albumin 2.3. Lactic Acid not done 11/18 UA: Yellow, Turbid, 1+ Protein, Trace Ketones, Large Blood, 1+ Bilirubin, Small Esterase, RBC 8, WBC 7. 11/18 CXR: COPD with basilar infiltrate and small effusion > left. Mild central venous congestion not excluded. 11/24 VS: T 96.2, P 70, R 11 - 16, BP 77/53, PO 93 5Lnc 11/25 LAB: WBC 19.2, Hgb 1.4, Neut 16.9, Lymph 0.4, Lactic Acid 1.1 - 0.9 Treatment 11/18: IV Morphine 4 mg x1, IV Zofran 4 mg x1, IV Protonix 40 mg x1, IV Morphine 4 mg q4Hr PRN, IV Narcan, IV Zofran 4 mg q8Hr PRN, IV NaCl 1,000 mls @ 50 mls/hr q20H, IV Reglan 10 mg x1, IV Rocephin 50 mls @ 100 mls/hr q24Hr. 11/24: IV Solution w/Dopamine q24Hr, IV Dextrose/Water, IV Fentanyl, IV Albumin 500 mls @ 500 mls/hr x1, IV Dextrose/Water w/Na Bicarb, IV Levophen, IV Rocephin, IV Na Cl 1,000 mls @ 125 mls/hr q8H. 11/24: IV Albumin 500 mls x1, IV NaCl 1,000 mls q1H x2, IV Zosyn, IV Levophen, IV [place] Gluconate, IV Ativan. In your professional opinion, please clarify if these findings signify one of the following conditions: [ ] Sepsis POA [ ] With Severe Sepsis [ ] Sepsis, Not POA [ ] With Severe Sepsis, please specify if organ failure: [ ] With Septic Shock, please specify cause: [ ] Sepsis Ruled Out [ ] Other, please specify [ ] Unable to determine Template Last Reviewed: July 2020) Unable to determine MTDD
--- NOTE | 2020-11-29 08:45 | CDI ---
Documentation Clarification Form Date: 11/29/2020 08:28:00 AM From: Ngozi ChauhanNICOLE rivera, CCDS Admit Date: 11/18/2020 10:58:00 AM Patient Name: Lia Johns Visit Number: [id number] Discharge Date: 11/26/2020 06:38:00 PM ATTENTION: The Clinical Documentation Specialists (CDI) and [facility] Coding Staff appreciate your assistance in clarifying documentation. Please respond to the clarification below the line at the bottom and electronically sign. The CDI & [facility] Coding staff will review the response and follow-up if needed. Please note: Queries are made part of the Legal Health Record. If you have any questions, please contact the author of this message via ITS. Dr. Timothy Appiah: A Stage I Pressure Ulcer is documented by the Dietitian on 11/24. Please clarify the diagnosis of Pressure Ulcer based on this information and the findings below. 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 Clinical Indicators: Presented to the ED on 11/18 with Abdominal Pain. The patient was recently at [facility] and had a paracentesis done with results concerning for adenocarcinoma, also recently had a Permanent Pacemaker implanted for Atrial Fibrillation. ED Clinical Impression: Hyponatremia, Ascites, Adenocarcinoma. 11/18 VS: T 98.2 - 96.2, P 68 - 70, R 18 - 15, BP 112/60 - 116/71; PO 98 6Lnc - 92 RA, BMI: 32.8 11/18 LAB: WBC 11.4, Hgb 11.1, Neut 9.8, Lymph 0.6, Na 125, CO2 17, Creatinine 1.18, Total Protein 4.5, Albumin 2.3. Lactic Acid not done 11/18 UA: Yellow, Turbid, 1+ Protein, Trace Ketones, Large Blood, 1+ Bilirubin, Small Esterase, RBC 8, WBC 7. 11/24 VS: T 96.2, P 70, R 11 - 16, BP 77/53, PO 93 5Lnc 11/25 LAB: WBC 19.2, Hgb 1.4, Neut 16.9, Lymph 0.4, Lactic Acid 1.1 - 0.9 11/24 Dietitian Note: Stage I Pressure Ulcer on Right Heel Treatment 11/18: IV Morphine 4 mg x1, IV Zofran 4 mg x1, IV Protonix 40 mg x1, IV Morphine 4 mg q4Hr PRN, IV Narcan, IV Zofran 4 mg q8Hr PRN, IV NaCl 1,000 mls @ 50 mls/hr q20H, IV Reglan 10 mg x1, IV Rocephin 50 mls @ 100 mls/hr q24Hr. 11/24: IV NaCl 500 mls @ 999 mls/hr q31M, IV Dopamine/Dextrose, IV Dextrose, IV Fentanyl, IV Albumin, po Samsca, IV Levophed, IV Rocephin, IV NaCl 1,000 mls @ 125 mls/hr q8H Is there an additional diagnosis that is clinically appropriate for this patient? [ ] Right Heel Pressure Ulcer Stage 1 [ ] Present on Admission [ ] Not Present on Admission [ ] Other condition, please specify: [ ] Unable to determine (Template Last Revised: August 2020) Right heel pressure ulcer stage I, POA MTDD
== END 2020-11-26 18:38 | disposition expired | DRG 374 ==
LOC: EC 08:16 → 5NMEDONC 10:58 → 2SICU 11-24 10:35 → 5NMEDONC 11-26 15:41
PROVIDERS: ADMIT Hospitalist; ATTEND Hospitalist
PROC: 0W9G3ZZ Drainage of Peritoneal Cavity, Percutaneous Approach (ICD-10-PCS; principal; 2020-11-21)
PROC: 3E033XZ Introduction of Vasopressor into Peripheral Vein, Percutaneous Approach (ICD-10-PCS; 2020-11-24 11:35)
PROC: 02H633Z Insertion of Infusion Device into Right Atrium, Percutaneous Approach (ICD-10-PCS; 2020-11-25)
DX: C78.6 Secondary malignant neoplasm of retroperitoneum and peritoneum (principal); N17.0 Acute kidney failure with tubular necrosis; J96.01 Acute respiratory failure with hypoxia; G93.41 Metabolic encephalopathy; E43 Unspecified severe protein-calorie malnutrition; R18.0 Malignant ascites; I48.19 Other persistent atrial fibrillation; E87.1 Hypo-osmolality and hyponatremia; E87.2 Acidosis; R57.9 Shock, unspecified; J90 Pleural effusion, not elsewhere classified; J98.11 Atelectasis; K91.2 Postsurgical malabsorption, not elsewhere classified; Z51.5 Encounter for palliative care; Z66 Do not resuscitate; Z95.0 Presence of cardiac pacemaker; Z79.01 Long term (current) use of anticoagulants; E78.5 Hyperlipidemia, unspecified; L89.611 Pressure ulcer of right heel, stage 1; C80.1 Malignant (primary) neoplasm, unspecified; R26.9 Unspecified abnormalities of gait and mobility; Z20.822 Contact with and (suspected) exposure to COVID-19; F32.9 Major depressive disorder, single episode, unspecified; K21.9 Gastro-esophageal reflux disease without esophagitis; D63.8 Anemia in other chronic diseases classified elsewhere; D63.0 Anemia in neoplastic disease; F51.04 Psychophysiologic insomnia; Z98.84 Bariatric surgery status; D50.9 Iron deficiency anemia, unspecified; E83.39 Other disorders of phosphorus metabolism; J44.9 Chronic obstructive pulmonary disease, unspecified; E16.2 Hypoglycemia, unspecified; R47.81 Slurred speech; E86.1 Hypovolemia; E66.01 Morbid (severe) obesity due to excess calories; Z82.3 Family history of stroke; Z82.49 Family history of ischemic heart disease and other diseases of the circulatory system; E87.70 Fluid overload, unspecified; I10 Essential (primary) hypertension; D72.829 Elevated white blood cell count, unspecified; K59.00 Constipation, unspecified; M19.90 Unspecified osteoarthritis, unspecified site; Z82.0 Family history of epilepsy and other diseases of the nervous system; Z79.899 Other long term (current) drug therapy; Z88.8 Allergy status to other drugs, medicaments and biological substances; Z87.891 Personal history of nicotine dependence; K57.90 Diverticulosis of intestine, part unspecified, without perforation or abscess without bleeding; K64.8 Other hemorrhoids; E64.8 Sequelae of other nutritional deficiencies; I49.5 Sick sinus syndrome; F41.9 Anxiety disorder, unspecified; E88.09 Other disorders of plasma-protein metabolism, not elsewhere classified; Z68.32 Body mass index [BMI] 32.0-32.9, adult
CPT/HCPCS: 36410; 36415; 49083; 70450; 71045; 71046; 74018; 76705; 76770; 76830; 76937; 80048; 80053; 81001; 82042; 82140; 82150; 82330; 82533; 82607; 82728; 82746; 83540; 83550; 83605; 83690; 83735; 83880; 83921; 83930; 84100; 84145; 84157; 84550; 85025; 85027; 85610; 85730; 86038; 86160; 86255; 86300; 86304; 86334; 86335; 86704; 86706; 86803; 87040; 87070; 87205; 87340; 87635; 88108; 88305; 88341; 88342; 89050; 93005; 93306; 96374; 96375; 99285